=== PATIENT | male | born 1950 | race Caucasian/White ===

== ENCOUNTER 2019-12-18 04:23 | Emergency (ER) | payer MEDICARE, OTHER, SELFPAY ==
[2019-12-18 04:28] VITALS: BP 136/82; PULSE 106; RESP 20; TEMP 36.7; O2SAT 96; BMI 31.1
--- NOTE | 2019-12-18 04:39 | CTR_ITS ---
PROCEDURE INFORMATION: Exam: CT Abdomen And Pelvis With Contrast Exam date and time: 12/18/2019 5:20 AM Age: 69 years old Clinical indication: Abdominal pain; Generalized; Prior surgery; Surgery type: Back, hernia TECHNIQUE: Imaging protocol: Computed tomography of the abdomen and pelvis with intravenous contrast. Radiation optimization: All CT scans at this facility use at least one of these dose optimization techniques: automated exposure control; mA and/or kV adjustment per patient size (includes targeted exams where dose is matched to clinical indication); or iterative reconstruction. Contrast material: VISI; Contrast volume: 95 ml; Contrast route: 18G; COMPARISON: CT abdomen pelvis wo con [id number] 07/22/2019 11:47 AM RADIATION DOSE METRICS: Total DLP: 1771.09 mGy-cm FINDINGS: Lungs: Mild interstitial prominence. 2 mm nodule in the posterior segment of the right lower lobe (series 2: Image 19).For patients at low risk (minimal or absent history of smoking and of other known risk factors), no routine follow-up is indicated. For patients at high risk (history of smoking or of other known risk factors), consider optional CT Chest at 12 months. Enma Zacarias, [employer], 2017. Diaphragm: Asymmetric elevation of the right hemidiaphragm. Liver: Fatty infiltration of the liver. Gallbladder and bile ducts: No cholelithiasis or biliary ductal dilatation. Pancreas: No pancreatic mass or ductal dilatation. Spleen: Mildly enlarged spleen measuring 12.2 cm in length. Adrenals: Unremarkable adrenals. Kidneys and ureters: Mild left hydronephrosis, without associated urolithiasis. Bilateral nodular renal hypodense lesions including a 12 mm high attenuation cyst arising from the lower pole left kidney. Stomach and bowel: Mild gastric wall thickening. Mild small bowel dilatation without a transition zone. Prominent stool and diverticula. Acute sigmoid diverticulitis with wall thickening, infiltration of pericolonic fat, and small quantity of pericolonic fluid. Appendix: No acute appendicitis. Intraperitoneal space: Trace free fluid in the pelvis. Vasculature: Normal caliber of the abdominal aorta. Vascular calcification. Lymph nodes: Subcentimeter lymph nodes. Bladder: Bladder dilatation and wall thickening. Reproductive: 8 mm cyst in the central prostate . Bones/joints: Lumbar laminectomy and pedicle screw fixation. Degenerative change and ligamentous calcification. Schmorl's nodes. Soft tissues: Mild infiltration of subcutaneous fat in the anterior abdominal wall. Small fat containing inguinal hernias. CT/CT abdomen pelvis w con* [id number] IMPRESSION: 1. Acute sigmoid diverticulitis with wall thickening, infiltration of pericolonic fat, and small quantity of pericolonic fluid. 2. Mild left hydronephrosis, without associated urolithiasis. 3. Mild gastric wall thickening. 4. Bladder dilatation and wall thickening. 5. Additional findings as described above. Radiation Dose CTDIVOL = (mGy): DLP = 1771.09 (mGy-cm)
[2019-12-18 04:51] LABS: Basophils % 0.3 %; Eosinophils # 0.2 10^3/uL (0.0-0.8); Eosinophils % 1.7 %; Hematocrit 41.6 % (42.0-52.0); Hemoglobin 13.9 g/dL (11.7-16.6); Lymphocytes # 2.3 10^3/uL (0.8-4.8); Lymphocytes % 24.4 %; Mean Corpuscular HGB Conc 33.4 g/dL (30.0-36.0); Mean Corpuscular Hemoglobin 31.3 pg (28.0-34.0); Mean Corpuscular Volume 93.7 fL (80-94); Mean Platelet Volume 9.5 fL (7.4-10.4); Monocytes # 1.1 10^3/uL (0.2-0.9); Monocytes % 10.9 %; Neutrophils % 62.5 %; Nucleated Red Blood Cells % 0 %; Platelet Count 227 10^3/cmm (130-400); Red Blood Count 4.44 10^6/uL (4.1-5.3); Red Cell Distribution Width 12.8 % (12.1-15.1); White Blood Count 9.6 10^3/uL (4.0-10.0)
[2019-12-18] MEDS: sodium chloride 0.9% 1,000 ML 100 ML IV (04:51)
--- NOTE | 2019-12-18 04:51 | ED_ITS ---
Documented by User: Krupa Hennessy 12/18/19 04:55 HPI - Abdominal Pain General: Chief Complaint: Abdominal Pain Stated Complaint: ABD PAIN/DIVERTICULITIS Time Seen by Provider: 12/18/19 04:34 History of Present Illness: HPI narrative: Mr. Carmona is a nice 69-year-old male who comes in complaining of midline lower abdominal pain. He states his pain began approximately 3 days ago and is progressively gotten worse. He describes the pain is a dull aching pain. It feels similar to when he had diverticulitis in the past. He had associated nausea but no vomiting. He has had loss of appetite. He does not describe any urinary symptoms such as dysuria, urinary frequency urgency. There is been no diarrhea or blood in his stools. He denies any radiation of his pain it is all staying in the midline. Associated Symptoms: Reports nausea; Denies chills, coffee ground emesis, constipation, GI cramping, diarrhea, dysuria, fever(s), hematochezia, hematuria, hematemesis, melena, syncope and vomiting Review of Systems General: Reports: other (negative unless marked) Const: Denies: fever, chills, body aches, fatigue, malaise or diaphoresis Eyes: Denies: change in vision or blurry vision ENMT: Denies: throat pain, painful swallowing, hoarseness, ear pain, ear discharge, Change in hearing or nasal discharge Card: Denies: chest pain, palpitations, irregular heart rhythm, syncope, pre- syncope, shortness of breath on exertion or shortness of breath when lying down Resp: Denies: shortness of breath, productive cough, non-productive cough, wheezing, coughing up blood or chest congestion GI: Reports: abdominal pain and nausea; Denies: vomiting, vomiting blood, coffee grounds in vomit, diarrhea, constipation, cramping, blood in stool or black tarry stool : Denies: flank pain, difficulty urinating, painful urination, urinary frequency, urinary urgency, decreased urine ouput, urinary incontinence or blood in urine Musc: Denies: neck pain, back pain, extremity pain, extremity swelling, joint pain, joint swelling, joint warmth or joint stiffness Skin/Breast: Denies: rash, skin tenderness or yellow skin Neuro: Denies: headache, numbness in extremities, weakness in extremities, changes in sensation, lack of coordination, difficulty walking, dizziness, vertigo or confusion Endo: Denies: excessive thirst, tired all the time, cold intolerance, excessive sweating, flushing or hot flashes Rock/Lymph: Denies: easy bruising, easy bleeding, petechiae or enlarged lymph nodes All/Imm: Denies: hives, throat swelling, tongue swelling, facial swelling or acute wheezing PFSH ED PFSH: Medical History No pertinent past medical history Surgical History No history of previous surgery Social History Smoking and tobacco status: never smoked Physical Exam Const: COMMON NORMALS: no apparent distress, oriented x3, no limitations, healthy appearing and well nourished EXAM LIMITATIONS: no altered mental status GENERAL APPEARANCE: cooperative, well kempt and well developed ORIENTATION/CONSCIOUSNESS: Yes awake HENMT: COMMON NORMALS: normocephalic, head/scalp atraumatic, hearing grossly normal bilaterally, external ears normal, EAC's normal, external nose normal and moist oral mucous membranes HEAD & SCALP: normal to inspection, normocephalic and atraumatic FACE & SINUS: normal facial exam and face symmetric NOSE: external nose normal and nares normal EXTERNAL EAR: Yes external ears normal EXTERNAL AUDITORY CANAL: EAC's normal MOUTH: oral and palatal mucosa normal and tongue normal Eye: COMMON NORMALS: PERRL, EOMs intact bilaterally, conjunctivae normal and no scleral icterus GENERAL EYE: normal appearance of both eyes and normal light reflex CONJUNCTIVA: Yes conjunctivae normal SCLERA: sclerae normal CORNEA: Yes corneas normal PUPIL: Yes PERRL DIRECT OPHTHALMOSCOPY: Yes normal light reflex Neck/C-Spine: COMMON NORMALS: full ROM, no lymphadenopathy, supple, no meningeal signs and no JVD GENERAL: Yes normal visual inspection and Yes trachea midline CERVICAL SPINE: Yes cervical ROM normal Chest: COMMONS NORMALS: inspection of chest normal and palpation of chest normal Resp: COMMON NORMALS: normal respiratory effort, no retractions, no use of accessory muscles and clear to auscultation bilaterally EFFORT & INSPECTION: Yes able to speak in complete sentences AUSCULTATION: clear to auscultation bilaterally Cardio: COMMON NORMALS: no JVD, regular rate, regular rhythm, S1 normal heart sound, S2 normal heart sound, no gallops, no clicks, no murmurs and no rub JUGULAR VENOUS DISTENTION: no JVD RATE: regular rate RHYTHM: regular rhythm HEART SOUNDS: S1 normal and S2 normal GI: COMMON NORMALS: soft to palpation, no hepatosplenomegaly and no masses PALPATION: Yes soft, Yes tender (Moderate in the midline), No guarding, No rigid and Yes no hepatosplenomegaly : COMMON NORMALS: Yes no CVA tenderness BLADDER/KIDNEY EXAM: Yes no CVA tenderness Back/Pelvis: COMMON NORMALS: no CVA tenderness, thoracic and lumbar spine normal to inspection, no thoracic nor lumbar tenderness and thoraco-lumbar ROM normal Extremity: COMMON NORMALS: normal to inspection, full ROM, normal capillary refill, no joint enlargement, no clubbing, cyanosis or edema and no calf tenderness Neuro: COMMON NORMALS: oriented x3, CN's II-XII intact bilaterally, moves all extremities, no focal motor deficits and no sensory deficits noted MENINGEAL SIGNS: Yes no meningeal signs Psych: COMMON NORMALS: mental status grossly normal, thought process normal, cooperative, affect normal, speech normal and activity/motor behavior normal APPEARANCE: Yes well kempt SPEECH: Yes normal speech THOUGHT PROCESS: normal thought process Skin: COMMON NORMALS: no rashes or lesions noted, skin turgor normal, no jaundice, no petechiae and no mottling GENERAL SKIN EXAM: no rashes or lesions noted and turgor normal Course Vital Signs: Vital signs: Vital Signs Temperature 98.0 F 12/18/19 04:28 Pulse Rate 106 H 12/18/19 04:28 Respiratory Rate 18 12/18/19 05:16 Blood Pressure 136/82 12/18/19 04:28 Pulse Oximetry 94 12/18/19 05:16 MDM - Abdominal Pain Lab Data: Labs: Lab Results 12/18/19 12/18/19 12/18/19 Range/Units 04:44 04:44 04:59 WBC 9.6 (4.0-10.0) 10^3/ uL RBC 4.44 (4.1-5.3) 10^6/u L Hgb 13.9 (11.7-16.6) g/dL Hct 41.6 L (42.0-52.0) % MCV 93.7 (80-94) fL MCH 31.3 (28.0-34.0) pg MCHC 33.4 (30.0-36.0) g/dL RDW 12.8 (12.1-15.1) % Plt Count 227 (130-400) 10^3/c mm MPV 9.5 (7.4-10.4) fL Neut % (Auto) 62.5 % Lymph % (Auto) 24.4 % Williamson % (Auto) 10.9 % Eos % (Auto) 1.7 % Baso % (Auto) 0.3 % Neut # (Auto) 6.0 (1.8-7.7) 10^3/u L Lymph # (Auto) 2.3 (0.8-4.8) 10^3/u L Williamson # (Auto) 1.1 H (0.2-0.9) 10^3/u L Eos # (Auto) 0.2 (0.0-0.8) 10^3/u L Baso # (Auto) 0.0 (0.0-0.1) 10^3/u L Nucleated RBC % (a uto) 0 % Nucleated RBCs # 0.0 /100WBC Sodium 141 (136-145) mmol/L Potassium 4.7 (3.5-5.1) mmol/L Chloride 104 (98-107) mmol/L Carbon Dioxide 26 (22-29) mmol/L Anion Gap 15.7 (5-19) BUN 25 H (8-23) mg/dL Creatinine 1.7 H (0.7-1.2) mg/dL GFR Calculation 40.2 L (90-130) mL/min Glucose 127 H (65-115) mg/dL Calculated Osmolal ity 290 (285-295) mOsm/k g Calcium 9.5 (8.5-10.5) mg/dL Total Bilirubin 0.7 (0.15-1.2) mg/dL AST 23 (0-40) U/L ALT 26 (0-41) U/L Alkaline Phosphata se 38 L (40-130) IU/L Total Protein 7.3 (6.6-8.7) g/dL Albumin 4.5 (3.5-5.2) g/dL Globulin 2.8 (1.3-4.6) g/dL Lipase 39 (13-60) U/L Urine Color Yellow (Yellow) Urine Appearance Clear (CLEAR) Urine pH 5 (5-7) Ur Specific Gravit y 1.010 (1.005-1.030) Urine Protein Neg (Negative) Urine Glucose (UA) Norm (Normal) Urine Ketones Negative (Negative) Urine Blood Neg (Negative) Urine Nitrate Negative (Negative) Urine Bilirubin Neg (NEGATIVE) Urine Urobilinogen Norm (Negative) mg/dL Ur Leukocyte Aileen ase Negative (Negative) Urine RBC Rare (0-2) /hpf Urine WBC Rare (0-5) /hpf Ur Squamous Epith Cells Rare (0-5) Urine Bacteria 1+ H (NONE) Discharge Plan Discharge Patient Disposition: Home, Self-Care Clinical Impression: Diverticulitis Condition: Stable Prescriptions: New hydrocodone-acetaminophen 5-325 mg tablet 1 tab PO Q6H PRN (Reason: pain) Qty: 25 RF: 0 Zofran 4 mg tablet 4 mg PO Q6H PRN (Reason: nausea and vomiting) Qty: 15 RF: 0 Cipro 500 mg tablet 500 mg PO BID Qty: 14 RF: 0 metronidazole 500 mg tablet 500 mg PO Q8H 7 Days Qty: 21 RF: 0 Discharge Orders: Discharge Order (Routine); Ordered 12/18/19 Ordered By: Kemal Hernandez Referrals: Jaylan Montero DO [Family Provider] - Discharge Diet: Clear Liquid Discharge Activity: Increase activity as tolerated Patient Instructions: Clear Liquid Diet (ED) Activity Restrictions/Additional Instructions: Clear liquid diet x48 hours and advance as tolerated Sign Out Sign Out Data: Patient Sign Out occurred on 12/18/19 at 06:36. Patient's care was discussed, and care was transferred from Krupa Hennessy to Kemal Hernandez DO. Sign Out Comment: Case turned over to Dr. Hernandez at change of shift. Last updated by Krupa Hennessy at 12/18/19 05:45 Coding Level of Care Code ED Skinner Pelts for Chg Fwd Exam Comprehensive Documented by User: Kemal Hernandez DO 12/18/19 06:45 HPI - Abdominal Pain General: Chief Complaint: Abdominal Pain Stated Complaint: ABD PAIN/DIVERTICULITIS Time Seen by Provider: 12/18/19 04:34 PFSH ED PFSH: Medical History No pertinent past medical history Surgical History No history of previous surgery Social History Smoking and tobacco status: never smoked Course Vital Signs: Vital signs: Vital Signs Temperature 98.0 F 12/18/19 04:28 Pulse Rate 106 H 12/18/19 04:28 Respiratory Rate 18 12/18/19 05:16 Blood Pressure 136/82 12/18/19 04:28 Pulse Oximetry 94 12/18/19 05:16 MDM - Abdominal Pain MDM Narrative: Medical decision making narrative: CT shows diverticulitis no perforation. We will go ahead and start on Cipro and Flagyl hydrocodone Zofran for pain clear liquid diet advance in 2 days recommend follow-up with primary care doctor to reevaluate he is not sure when he had his last colonoscopy and he has had previous episodes of diverticulitis. Lab Data: Labs: Lab Results 12/18/19 12/18/19 12/18/19 Range/Units 04:44 04:44 04:59 WBC 9.6 (4.0-10.0) 10^3/ uL RBC 4.44 (4.1-5.3) 10^6/u L Hgb 13.9 (11.7-16.6) g/dL Hct 41.6 L (42.0-52.0) % MCV 93.7 (80-94) fL MCH 31.3 (28.0-34.0) pg MCHC 33.4 (30.0-36.0) g/dL RDW 12.8 (12.1-15.1) % Plt Count 227 (130-400) 10^3/c mm MPV 9.5 (7.4-10.4) fL Neut % (Auto) 62.5 % Lymph % (Auto) 24.4 % Williamson % (Auto) 10.9 % Eos % (Auto) 1.7 % Baso % (Auto) 0.3 % Neut # (Auto) 6.0 (1.8-7.7) 10^3/u L Lymph # (Auto) 2.3 (0.8-4.8) 10^3/u L Williamson # (Auto) 1.1 H (0.2-0.9) 10^3/u L Eos # (Auto) 0.2 (0.0-0.8) 10^3/u L Baso # (Auto) 0.0 (0.0-0.1) 10^3/u L Nucleated RBC % (a uto) 0 % Nucleated RBCs # 0.0 /100WBC Sodium 141 (136-145) mmol/L Potassium 4.7 (3.5-5.1) mmol/L Chloride 104 (98-107) mmol/L Carbon Dioxide 26 (22-29) mmol/L Anion Gap 15.7 (5-19) BUN 25 H (8-23) mg/dL Creatinine 1.7 H (0.7-1.2) mg/dL GFR Calculation 40.2 L (90-130) mL/min Glucose 127 H (65-115) mg/dL Calculated Osmolal ity 290 (285-295) mOsm/k g Calcium 9.5 (8.5-10.5) mg/dL Total Bilirubin 0.7 (0.15-1.2) mg/dL AST 23 (0-40) U/L ALT 26 (0-41) U/L Alkaline Phosphata se 38 L (40-130) IU/L Total Protein 7.3 (6.6-8.7) g/dL Albumin 4.5 (3.5-5.2) g/dL Globulin 2.8 (1.3-4.6) g/dL Lipase 39 (13-60) U/L Urine Color Yellow (Yellow) Urine Appearance Clear (CLEAR) Urine pH 5 (5-7) Ur Specific Gravit y 1.010 (1.005-1.030) Urine Protein Neg (Negative) Urine Glucose (UA) Norm (Normal) Urine Ketones Negative (Negative) Urine Blood Neg (Negative) Urine Nitrate Negative (Negative) Urine Bilirubin Neg (NEGATIVE) Urine Urobilinogen Norm (Negative) mg/dL Ur Leukocyte Aileen ase Negative (Negative) Urine RBC Rare (0-2) /hpf Urine WBC Rare (0-5) /hpf Ur Squamous Epith Cells Rare (0-5) Urine Bacteria 1+ H (NONE) Discharge Plan Discharge Patient Disposition: Home, Self-Care Clinical Impression: Diverticulitis Condition: Stable Prescriptions: New hydrocodone-acetaminophen 5-325 mg tablet 1 tab PO Q6H PRN (Reason: pain) Qty: 25 RF: 0 Zofran 4 mg tablet 4 mg PO Q6H PRN (Reason: nausea and vomiting) Qty: 15 RF: 0 Cipro 500 mg tablet 500 mg PO BID Qty: 14 RF: 0 metronidazole 500 mg tablet 500 mg PO Q8H 7 Days Qty: 21 RF: 0 Discharge Orders: Discharge Order (Routine); Ordered 12/18/19 Ordered By: Kemal Hernandez Referrals: Jaylan Montero DO [Family Provider] - Discharge Diet: Clear Liquid Discharge Activity: Increase activity as tolerated Patient Instructions: Clear Liquid Diet (ED) Activity Restrictions/Additional Instructions: Clear liquid diet x48 hours and advance as tolerated Sign Out Sign Out Data: Patient Sign Out occurred on 12/18/19 at 06:36. Patient's care was discussed, an d care was transferred from Krupa Hennessy to Kemal Hernandez DO. Sign Out Comment: Case turned over to Dr. Hernandez at change of shift. Last updated by Krupa Hennessy at 12/18/19 05:45 Coding Level of Care Code ED Skinner Pelts for Chg Fwd Exam Comprehensive
[2019-12-18] MEDS: ondansetron 2 mg/ML SDV 2 mL 4 MG IVP ×2 (04:53→06:46)
[2019-12-18 04:54] VITALS: RESP 17; O2SAT 98
[2019-12-18] MEDS: morphine 4 mg/mL SDV 1 mL IVP ×2 (04:54→06:47)
[2019-12-18 05:05] LABS: Alanine Aminotransferase 26 U/L (0-41); Albumin Level 4.5 g/dL (3.5-5.2); Alkaline Phosphatase 38 IU/L (40-130); Anion Gap 15.7 (5-19); Aspartate Amino Transferase 23 U/L (0-40); Blood Urea Nitrogen 25 mg/dL (8-23); Calcium 9.5 mg/dL (8.5-10.5); Carbon Dioxide 26 mmol/L (22-29); Chloride 104 mmol/L (98-107); Globulin 2.8 g/dL (1.3-4.6); Glomerular Filtration Rate 40.2 mL/min (90-130); Glucose 127 mg/dL (65-115); Lipase 39 U/L (13-60); Osmolality Calculated 290 mOsm/kg (285-295); Potassium 4.7 mmol/L (3.5-5.1); Sodium 141 mmol/L (136-145); Total Bilirubin 0.7 mg/dL (0.15-1.2); Total Protein 7.3 g/dL (6.6-8.7)
[2019-12-18 05:16] VITALS: RESP 18; O2SAT 94
[2019-12-18] MEDS: HYDROmorphone 1 mg/mL INJ 1 mL IVP (05:16)
[2019-12-18 05:48] LABS: Bilirubin Urine Neg (NEGATIVE); Blood Urine Neg (Negative); Glucose Urine UA Norm (Normal); Ketones Urine Negative (Negative); Leukocyte Esterase Urine Negative (Negative); Nitrate Urine Negative (Negative); Protein Urine Neg (Negative); RBC Urine RARE /hpf (0-2); Squamous Epithelial Cell Urine RARE (0-5); Urine Appearance Clear (CLEAR); Urine Color Yellow (Yellow); Urobilinogen Urine Norm (Negative); WBC Urine RARE /hpf (0-5); pH Urine 5 (5-7)
[2019-12-18 05:49] LABS: Bacteria Urine 1+
[2019-12-18] MEDS: iodixanol 320 mg/mL 100mL Btl IV (05:58)
[2019-12-18] MEDS: sodium chloride 0.9% 1,000 ML 999 ML IV ×2 (06:10→06:51)
--- NOTE | 2019-12-18 06:17 | PC.NURSE ---
[facility] INFUSED THIRD UNIT INFUSING AT THIS, STATES PAIN IS STILL THERE' WHILE GUARDING ABD. WILL NOTIFY ER DOCTOR.
[2019-12-18 06:47] VITALS: RESP 18; O2SAT 98
[2019-12-18 07:22] VITALS: BP 144/76; PULSE 90; RESP 18; O2SAT 94
== END 2019-12-18 07:28 | disposition home or self-care (01) ==
PROVIDERS: Emergency Medicine; Emergency Provider Family Medicine; Family Provider Family Medicine
DX: K57.92 Diverticulitis of intestine, part unspecified, without perforation or abscess without bleeding (principal)
CPT/HCPCS: 12345; 74177; 80053; 81001; 83690; 85025; 96360; 96361; 96374; 96375; 96376; 99283; 99284; J1170; J2270; J2405; J7030; Q9967

== ENCOUNTER 2020-06-06 04:27 | Emergency (ER) | payer MEDICARE, OTHER, SELFPAY ==
[2020-06-06 04:33] VITALS: BP 152/81; PULSE 88; RESP 18; TEMP 36.4; O2SAT 95; BMI 30.5
--- NOTE | 2020-06-06 04:36 | CTR_ITS ---
PROCEDURE INFORMATION: Exam: CT Abdomen And Pelvis With Contrast Exam date and time: 06/06/2020 5:41 AM Age: 70 years old Clinical indication: Abdominal pain; Localized; Lower; Prior surgery; Surgery date: 6+ months; Surgery type: Back; Additional info: Abd pain TECHNIQUE: Imaging protocol: Computed tomography of the abdomen and pelvis with intravenous contrast. Radiation optimization: All CT scans at this facility use at least one of these dose optimization techniques: automated exposure control; mA and/or kV adjustment per patient size (includes targeted exams where dose is matched to clinical indication); or iterative reconstruction. Contrast material: VISI; Contrast volume: 95 ml; Contrast route: INTRAVENOUS (IV); COMPARISON: CT abdomen pelvis w con* [id number] 12/18/2019 5:54 AM RADIATION DOSE METRICS: Total DLP (mGy-cm): 1471.51 FINDINGS: Liver: Normal. No mass. Gallbladder and bile ducts: Normal. No calcified stones. No ductal dilation. Pancreas: Normal. No ductal dilation. Spleen: Normal. No splenomegaly. Adrenals: Normal. No mass. Kidneys and ureters: Strandy opacities are seen in the perinephric fascia likely representing chronic scarring. There are stable bilateral renal cysts present compared with 12/18/2019. The largest is seen within the right kidney measuring 1.5 cm. Stomach and bowel: Diverticula are present on the sigmoid colon. There are hazy opacity seen adjacent to the proximal sigmoid colon and there is bowel wall thickening present within the proximal sigmoid colon as well, findings compatible with diverticulitis. Appendix: The appendix is visualized and is normal in configuration. Intraperitoneal space: Unremarkable. No free air. No significant fluid collection. Vasculature: Unremarkable. No abdominal aortic aneurysm. Lymph nodes: Unremarkable. No enlarged lymph nodes. Urinary bladder: There is bladder wall thickening seen although the bladder is incompletely distended. Reproductive: Unremarkable as visualized. Bones/joints: Unremarkable. No acute fracture. Soft tissues: Unremarkable. CT/CT abdomen pelvis w con* [id number] IMPRESSION: 1. Diverticulosis of the sigmoid colon. Inflammatory changes and bowel wall thickening is seen within the proximal sigmoid colon compatible with diverticulitis. 2. Normal appendix 3. Stable benign renal cysts present bilaterally compared with 12/18/2019. No further workup needed. Radiation Dose CTDIVOL = (mGy): DLP = 1471.51 (mGy-cm)
[2020-06-06] MEDS: sodium chloride 0.9% 1,000 ML 999 ML IV (04:45)
[2020-06-06 05:06] LABS: Basophils % 0.5 %; Eosinophils # 0.1 10^3/uL (0.0-0.8); Eosinophils % 1.6 %; Hematocrit 37.7 % (42.0-52.0); Hemoglobin 12.5 g/dL (11.7-16.6); Lymphocytes # 1.8 10^3/uL (0.8-4.8); Lymphocytes % 24.5 %; Mean Corpuscular HGB Conc 33.2 g/dL (30.0-36.0); Mean Corpuscular Hemoglobin 31.4 pg (28.0-34.0); Mean Corpuscular Volume 94.7 fL (80-94); Mean Platelet Volume 9.4 fL (7.4-10.4); Monocytes # 0.8 10^3/uL (0.2-0.9); Monocytes % 10.7 %; Neutrophils # 4.61 10^3/uL (1.8-7.7); Neutrophils % 62.4 %; Nucleated Red Blood Cells % 0 %; Platelet Count 183 10^3/cmm (130-400); Red Blood Count 3.98 10^6/uL (4.1-5.3); Red Cell Distribution Width 13.2 % (12.1-15.1); White Blood Count 7.4 10^3/uL (4.0-10.0)
[2020-06-06 05:34] LABS: Alanine Aminotransferase 29 U/L (0-41); Albumin Level 4.1 g/dL (3.5-5.2); Alkaline Phosphatase 36 IU/L (40-130); Aspartate Amino Transferase 29 U/L (0-40); Blood Urea Nitrogen 27 mg/dL (8-23); Calcium 8.9 mg/dL (8.5-10.5); Carbon Dioxide 25 mmol/L (22-29); Chloride 104 mmol/L (98-107); Globulin 2.2 g/dL (1.3-4.6); Glomerular Filtration Rate 54.6 mL/min (90-130); Glucose 105 mg/dL (65-115); Lipase 38 U/L (13-60); Osmolality Calculated 293 mOsm/kg (285-295); Sodium 139 mmol/L (136-145); Total Bilirubin 0.6 mg/dL (0.15-1.2); Total Protein 6.3 g/dL (6.6-8.7)
[2020-06-06 05:44] VITALS: RESP 16
[2020-06-06 05:44] LABS: Lactate (Lactic Acid level) 0.7 mmol/L (0.5-2.2)
[2020-06-06] MEDS: HYDROmorphone 1 mg/mL INJ 1 mL IVP (05:44)
[2020-06-06] MEDS: ondansetron 2 mg/ML SDV 2 mL 4 MG IVP (05:45)
[2020-06-06] MEDS: iodixanol 320 mg/mL 100mL Btl IV (05:50)
[2020-06-06 06:25] LABS: Add Urine Microscopic? NO
--- NOTE | 2020-06-06 06:25 | W.ED.ABDPA2 ---
HPI - Abdominal Pain General: Chief Complaint: Abdominal Pain Stated Complaint: abd pain Time Seen by Provider: 06/06/20 04:35 History of Present Illness: HPI narrative: 70-year-old gentleman presents with periumbilical belly pain for the past couple of days. No vomiting, no diarrhea, no fever. Simply pain. It is gotten progressively worse. MD elicited complaint: abdominal pain Pertinent past history: diverticulitis Onset (ago): day(s) Pain Consistency: constant Location: Periumbilical Severity: moderate Quality: cramping, stabbing and aching Radiation: none Migration to: no migration Exacerbating factors: movement Relieving factors: nothing Associated Symptoms: Reports nausea; Denies dysuria, fever(s), hematochezia and vomiting Review of Systems Const: Denies: fever(s) Eyes: Denies: change in vision ENMT: Denies: odynophagia, swelling of lips/tongue or sinus pain Card: Denies: chest pain, palpitations, irregular heart rhythm or edema Resp: Denies: dyspnea, productive cough, non-productive cough or wheezing GI: Reports: nausea; Denies: vomiting or hematochezia : Denies: dysuria Musc: Denies: back pain or joint redness Skin/Breast: Denies: rash or erythema Neuro: Denies: headache(s), dizziness or vertigo Psych: Denies: anxiety PFSH ED PFSH: Medical History (Updated 06/06/20 @ 06:32 by Carlos Reyes DO) No pertinent past medical history Surgical History No history of previous surgery Social History Smoking and tobacco status: never smoked Physical Exam Const: GENERAL APPEARANCE: well developed ORIENTATION/CONSCIOUSNESS: Yes oriented to person, Yes oriented to place and Yes oriented to time HENMT: COMMON NORMALS: normocephalic, external ears normal and Normal external nose present HEAD & SCALP: normocephalic FACE & SINUS: normal facial exam NOSE: Normal external nose present and No nasal discharge present EXTERNAL EAR: Yes external ears normal MOUTH: tongue normal Eye: COMMON NORMALS: EOMs intact bilaterally and conjunctivae normal EYELID: eyelids normal CONJUNCTIVA: Yes conjunctivae normal Neck/C-Spine: COMMON NORMALS: full ROM GENERAL: No tracheal deviation Chest: COMMONS NORMALS: normal inspection of the chest CHEST: No tenderness Resp: COMMON NORMALS: clear to auscultation bilaterally EFFORT & INSPECTION: No tachypneic, No respiratory distress, No retractions, No uses accessory muscles and No tracheal deviation AUSCULTATION: clear to auscultation bilaterally, no rhonchi, no wheezes and lung sounds not diminished Cardio: COMMON NORMALS: regular rate and regular rhythm RATE: regular rate RHYTHM: regular rhythm HEART SOUNDS: no murmurs PERIPHERAL PULSES: radial pulses present GI: INSPECTION: No abdominal distension AUSCULTATION: No Hyperactive bowel sounds present and No Hypoactive bowel sounds present PALPATION: Yes Tenderness to palpation present (GI) (periumbilical), Yes Guarding due to palpation present (GI) and No Rigid due to palpation PERCUSSION: no dullness to percussion and no tympanic to percussion Neuro: SENSORIUM/ORIENTATION: Yes oriented to person, Yes oriented to place and Yes oriented to time Psych: COMMON NORMALS: mental status grossly normal Skin: COMMON NORMALS: no rashes or lesions noted GENERAL SKIN EXAM: no rashes or lesions noted Course Vital Signs: Vital signs: Vital Signs Temperature 97.5 F L 06/06/20 04:33 Pulse Rate 78 06/06/20 07:09 Respiratory Rate 15 06/06/20 07:09 Blood Pressure 139/80 06/06/20 07:09 Pulse Oximetry 95 06/06/20 04:33 MDM - Abdominal Pain MDM Narrative: Medical decision making narrative: No fever no white count mild elevation in creatinine. CT shows diverticulitis without perforation or abscess the patient's not vomiting. He would like to try treatment at home. Ciprofloxacin, Flagyl, antiemetics and pain medication. He was told to return for any worsening symptoms or failure to improve. Lab Data: Labs: Lab Results 06/06/20 06/06/20 06/06/20 Range/Units 04:45 04:45 05:05 WBC 7.4 (4.0-10.0) 10^3/ uL RBC 3.98 L (4.1-5.3) 10^6/u L Hgb 12.5 (11.7-16.6) g/dL Hct 37.7 L (42.0-52.0) % MCV 94.7 H (80-94) fL MCH 31.4 (28.0-34.0) pg MCHC 33.2 (30.0-36.0) g/dL RDW 13.2 (12.1-15.1) % Plt Count 183 (130-400) 10^3/c mm MPV 9.4 (7.4-10.4) fL Neut % (Auto) 62.4 % Lymph % (Auto) 24.5 % Nolan % (Auto) 10.7 % Eos % (Auto) 1.6 % Baso % (Auto) 0.5 % Neut # (Auto) 4.61 (1.8-7.7) 10^3/u L Lymph # (Auto) 1.8 (0.8-4.8) 10^3/u L [place] # (Auto) 0.8 (0.2-0.9) 10^3/u L Eos # (Auto) 0.1 (0.0-0.8) 10^3/u L Baso # (Auto) 0.0 (0.0-0.1) 10^3/u L Nucleated RBC % (a uto) 0 % Nucleated RBCs # 0.0 /100WBC Sodium 139 (136-145) mmol/L Potassium 4.0 (3.5-5.1) mmol/L Chloride 104 (98-107) mmol/L Carbon Dioxide 25 (22-29) mmol/L Anion Gap 14.0 (5-19) BUN 27 H (8-23) mg/dL Creatinine 1.3 H (0.7-1.2) mg/dL GFR Calculation 54.6 L (90-130) mL/min Glucose 105 (65-115) mg/dL Calculated Osmolal ity 293 (285-295) mOsm/k g Lactate 0.7 (0.5-2.2) mmol/L Calcium 8.9 (8.5-10.5) mg/dL Total Bilirubin 0.6 (0.15-1.2) mg/dL AST 29 (0-40) U/L ALT 29 (0-41) U/L Alkaline Phosphata se 36 L (40-130) IU/L C-Reactive Protein 10.5 H (0.0-4.9) mg/L Total Protein 6.3 L (6.6-8.7) g/dL Albumin 4.1 (3.5-5.2) g/dL Globulin 2.2 (1.3-4.6) g/dL Lipase 38 (13-60) U/L Urine Color (Yellow) Urine Appearance (CLEAR) Urine pH (5-7) Ur Specific Gravit y (1.005-1.030) Urine Protein (Negative) Urine Glucose (UA) (Normal) Urine Ketones (Negative) Urine Blood (Negative) Urine Nitrate (Negative) Urine Bilirubin (Negative) Prot Sulfosalicyli c Acd (Negative) Urine Urobilinogen (Negative) mg/dL Ur Leukocyte Aileen ase (Negative) 06/06/20 Range/Units 05:40 WBC (4.0-10.0) 10^3/ uL RBC (4.1-5.3) 10^6/u L Hgb (11.7-16.6) g/dL Hct (42.0-52.0) % MCV (80-94) fL MCH (28.0-34.0) pg MCHC (30.0-36.0) g/dL RDW (12.1-15.1) % Plt Count (130-400) 10^3/c mm MPV (7.4-10.4) fL Neut % (Auto) % Lymph % (Auto) % [place] % (Auto) % Eos % (Auto) % Baso % (Auto) % Neut # (Auto) (1.8-7.7) 10^3/u L Lymph # (Auto) (0.8-4.8) 10^3/u L [place] # (Auto) (0.2-0.9) 10^3/u L Eos # (Auto) (0.0-0.8) 10^3/u L Baso # (Auto) (0.0-0.1) 10^3/u L Nucleated RBC % (a uto) % Nucleated RBCs # /100WBC Sodium (136-145) mmol/L Potassium (3.5-5.1) mmol/L Chloride (98-107) mmol/L Carbon Dioxide (22-29) mmol/L Anion Gap (5-19) BUN (8-23) mg/dL Creatinine (0.7-1.2) mg/dL GFR Calculation (90-130) mL/min Glucose (65-115) mg/dL Calculated Osmolal ity (285-295) mOsm/k g Lactate (0.5-2.2) mmol/L Calcium (8.5-10.5) mg/dL Total Bilirubin (0.15-1.2) mg/dL AST (0-40) U/L ALT (0-41) U/L Alkaline Phosphata se (40-130) IU/L C-Reactive Protein (0.0-4.9) mg/L Total Protein (6.6-8.7) g/dL Albumin (3.5-5.2) g/dL Globulin (1.3-4.6) g/dL Lipase (13-60) U/L Urine Color Yellow (Yellow) Urine Appearance Clear (CLEAR) Urine pH 8 H (5-7) Ur Specific Gravit y 1.010 (1.005-1.030) Urine Protein Neg (Negative) Urine Glucose (UA) Norm (Normal) Urine Ketones Negative (Negative) Urine Blood Neg (Negative) Urine Nitrate Negative (Negative) Urine Bilirubin Neg (Negative) Prot Sulfosalicyli c Acd Negative (Negative) Urine Urobilinogen Norm (Negative) mg/dL Ur Leukocyte Aileen ase Negative (Negative) Discharge Plan Discharge Patient Disposition: Home Clinical Impression: Diverticulitis Condition: Stable Prescriptions: New Cipro 500 mg tablet 500 mg PO Q12H Qty: 20 RF: 0 Flagyl 500 mg tablet 500 mg PO TID Qty: 30 RF: 0 Percocet 5-325 mg tablet 1 tab PO Q4H PRN (Reason: pain) Qty: 14 RF: 0 Zofran 4 mg tablet 4 mg PO Q6H PRN (Reason: nausea and vomiting) Qty: 10 RF: 0 No Action hydrocodone-acetaminophen 5-325 mg tablet 1 tab PO Q6H PRN (Reason: pain) Qty: 25 RF: 0 Zofran 4 mg tablet 4 mg PO Q6H PRN (Reason: nausea and vomiting) Qty: 15 RF: 0 Cipro 500 mg tablet 500 mg PO BID Qty: 14 RF: 0 Discharge Orders: Discharge Order (Routine); Ordered 06/06/20 Ordered By: Carlos Reyes Referrals: Jaylan Montero DO [Primary Care Provider] - 4-7 days Discharge Diet: Advance as tolerated and Clear Liquid Discharge Activity: Resume usual activity Patient Instructions: Diverticulitis (ED) Activity Restrictions/Additional Instructions: Return for fever greater than 100 despite 2-3 doses of antibiotics, vomiting liquids or medications, increasing pain despite treatment, blood in the stool, other concerning symptoms Discharge Date/Time: 06/06/20 07:12 Coding Level of Care Code ED Hand Mexican Food Maker for Elo Harris
[2020-06-06 06:56] LABS: Urine Appearance Clear (CLEAR); Urine Color Yellow (Yellow)
[2020-06-06 06:57] LABS: Bilirubin Urine Neg (Negative); Blood Urine Neg (Negative); Glucose Urine UA Norm (Normal); Ketones Urine Negative (Negative); Leukocyte Esterase Urine Negative (Negative); Nitrate Urine Negative (Negative); Protein Urine Neg (Negative); Sulfosalicylic Acid Urine Negative (Negative); Urobilinogen Urine Norm (Negative); pH Urine 8 (5-7)
[2020-06-06] MEDS: metroNIDAZOLE 500 MG Tablet PO (07:04)
[2020-06-06] MEDS: oxyCODONE-APAP 5-325 mg Tablet 1 TAB PO (07:04)
[2020-06-06] MEDS: ciprofloxacin 500 mg Tablet PO (07:05)
[2020-06-06 07:09] VITALS: BP 139/80; PULSE 78; RESP 15
[2020-06-06 08:51] LABS: C Reactive Protein 10.5 mg/L (0.0-4.9)
== END 2020-06-06 07:12 | disposition home or self-care (01) ==
PROVIDERS: Emergency Provider Emergency Medicine; PCP Family Medicine
DX: K57.92 Diverticulitis of intestine, part unspecified, without perforation or abscess without bleeding (principal)
CPT/HCPCS: 12345; 74177; 80053; 81003; 83605; 83690; 85025; 86140; 96361; 96374; 96375; 99282; 99283; J1170; J2405; J7030; Q9967

== ENCOUNTER 2020-11-25 18:19 | Emergency (ER) | payer MEDICARE, OTHER, SELFPAY ==
[2020-11-25 18:21] VITALS: BP 165/71; PULSE 107; RESP 18; TEMP 36.9; O2SAT 95; BMI 31.1
--- NOTE | 2020-11-25 19:36 | CTR_ITS ---
PROCEDURE INFORMATION: Exam: CT Abdomen And Pelvis With Contrast Exam date and time: 11/25/2020 8:21 PM Age: 70 years old Clinical indication: Abdominal pain; Localized; Prior surgery; Surgery type: Back; Patient HX: Central/lower abd pain x 2 days; Additional info: Abd pain, diveriticulitis TECHNIQUE: Imaging protocol: Computed tomography of the abdomen and pelvis with contrast. Radiation optimization: All CT scans at this facility use at least one of these dose optimization techniques: automated exposure control; mA and/or kV adjustment per patient size (includes targeted exams where dose is matched to clinical indication); or iterative reconstruction. Contrast material: VISI 320; Contrast volume: 95 ml; Contrast route: INTRAVENOUS (IV); COMPARISON: CT abdomen pelvis w con* [id number] 06/06/2020 5:44 AM RADIATION DOSE METRICS: Total DLP (mGy-cm): 8.8 FINDINGS: Liver: Normal. No mass. Gallbladder and bile ducts: Normal. No calcified stones. No ductal dilation. Pancreas: Normal. No ductal dilation. Spleen: Normal. No splenomegaly. Adrenal glands: Normal. No mass. Kidneys and ureters: 1.3 cm low-density cortical lesion in the left kidney has Hounsfield units measuring 20. This is most likely a cyst. Additional low-density lesions in both kidneys are too small to characterize but are most likely cysts. No follow-up imaging is recommended. No calculus or hydronephrosis. Stomach and bowel: Diverticulosis of the distal descending and sigmoid colon. There is focal inflammation in the fat surrounding the proximal sigmoid colon with wall thickening. No evidence for perforation. The stomach and small bowel are unremarkable. Appendix: The appendix is visualized and is normal. Intraperitoneal space: Unremarkable. No free air. No significant fluid collection. Vasculature: Unremarkable. No abdominal aortic aneurysm. Lymph nodes: Unremarkable. No enlarged lymph nodes. Urinary bladder: Mild thickening of the superior urinary bladder wall which abuts the inflamed sigmoid colon. Reproductive: Mildly enlarged prostate gland. There is a polypoid projection into the inferior urinary bladder which appears contiguous with the prostate. Bones/joints: L3-S1 posterior mechanical fusion with decompressive laminectomies. No compression fracture. Soft tissues: Fat containing right inguinal hernia. Other findings: No abscess. CT/CT abdomen pelvis w con* [id number] IMPRESSION: 1. Acute sigmoid diverticulitis. 2. Mild wall thickening/inflammation within the adjacent urinary bladder. 3. Enlarged prostate gland with a polypoid filling defect in the inferior urinary bladder. Prostate or urinary bladder malignancy is not excluded. Follow-up with cystoscopy is recommended. COMMENTS: Consistent with the [place] [employer]'s Incidental Findings Committee white paper (J Am Liz Radiol 2018): Any incidental renal lesion less than 1 cm or classified as too small to characterize, or any incidental cystic renal lesion characterized as simple-appearing, is likely benign. No follow-up imaging is recommended for these lesions per consensus recommendations based on imaging criteria. Radiation Dose CTDIVOL = (mGy): DLP = 2078.8 (mGy-cm)
--- NOTE | 2020-11-25 19:37 | W.ED.ABDPA2 ---
HPI - Abdominal Pain General: Chief Complaint: Abdominal Pain Stated Complaint: Pain in lower ABD Time Seen by Provider: 11/25/20 19:36 Source: patient Mode of arrival: ambulatory Limitations: no limitations History of Present Illness: HPI narrative: Patient comes in today with complaints of lower abdominal pain starting early this morning. Patient points to his periumbilical area radiating to the right side of his lower abdomen. Patient reports the pain kind reminds him of when he had diverticulitis in the past. Patient does continue to have his appendix. Patient is alert oriented. Patient appears mildly unwell. Patient appears in moderate pain. MD elicited complaint: abdominal pain Pertinent past history: diverticulitis Onset (ago): hour(s) Pain Consistency: constant Location: Periumbilical and RLQ Severity: moderate Quality: cramping Radiation: RLQ Migration to: no migration Exacerbating factors: movement Relieving factors: nothing Associated Symptoms: Reports nausea; Denies hematochezia and hematemesis Review of Systems General: Reports: 10 or more systems reviewed and unremarkable except in HPI and below GI: Reports: abdominal pain and nausea; Denies: hematemesis or hematochezia [facility] ED PFSH: Medical History (Updated 11/25/20 @ 21:34 by KENJI Curry) No pertinent past medical history Surgical History No history of previous surgery Social History Smoking and tobacco status: never smoked Physical Exam Const: COMMON NORMALS: no acute distress and patient oriented x3 GENERAL APPEARANCE: cooperative HENMT: COMMON NORMALS: normocephalic and Normal external nose present HEAD & SCALP: normal to inspection and normocephalic NOSE: Normal external nose present MOUTH: Normal oral and palatal mucosa present THROAT: posterior oropharynx normal Eye: GENERAL EYE: appearance normal, both eyes and all related structures Neck/C-Spine: COMMON NORMALS: full ROM Chest: COMMONS NORMALS: normal inspection of the chest Resp: COMMON NORMALS: normal respiratory effort EFFORT & INSPECTION: Yes able to speak in complete sentences Cardio: COMMON NORMALS: regular rate and regular rhythm RATE: regular rate RHYTHM: regular rhythm GI: INSPECTION: Yes normal to inspection AUSCULTATION: Yes Hypoactive bowel sounds present PALPATION: Yes Tenderness to palpation present (GI) Details: RLQ and other (Periumbilical) : COMMON NORMALS: Yes no CVA tenderness BLADDER/KIDNEY EXAM: Yes no CVA tenderness Back/Pelvis: COMMON NORMALS: no CVA tenderness and thoracic and lumbar spine normal to inspection Extremity: COMMON NORMALS: normal to inspection Neuro: COMMON NORMALS: patient oriented x3 and moves all extremities Psych: COMMON NORMALS: mental status grossly normal and cooperative Skin: COMMON NORMALS: no rashes or lesions noted GENERAL SKIN EXAM: no rashes or lesions noted Course Vital Signs: Vital signs: Vital Signs Temperature 98.4 F 11/25/20 18:21 Pulse Rate 107 H 11/25/20 18:21 Respiratory Rate 18 11/25/20 18:21 Blood Pressure 165/71 11/25/20 18:21 Pulse Oximetry 95 11/25/20 18:21 MDM - Abdominal Pain MDM Narrative: Medical decision making narrative: Patient comes in for concerns of lower abdominal pain. Patient thinks that he has a flare of his diverticulitis. Exam noted some significant tenderness in the periumbilical right lower quadrant area. Bowel sounds were present. Skin is warm and dry. Vital signs were normal. Differential diagnosis includes but not limited to diverticulitis, appendicitis, bowel obstruction. Laboratory values noted no significant abnormality. CT scan did indicate sigmoid diverticulitis and abnormality noted in the bladder/prostate area. Reviewed exam with patient with recommendations for treatment of diverticulitis with antibiotic and medications for pain. Also recommended cystoscopy through urologist for further treatment and evaluation of abnormality on CT scan. Patient reported understanding and agreed to plan. Lab Data: Labs: Lab Results 11/25/20 11/25/20 Range/Units 19:48 19:48 WBC 9.8 (4.0-10.0) 10^3/ uL RBC 4.25 (4.1-5.3) 10^6/u L Hgb 13.5 (11.7-16.6) g/dL Hct 40.3 L (42.0-52.0) % MCV 94.8 H (80-94) fL MCH 31.8 (28.0-34.0) pg MCHC 33.5 (30.0-36.0) g/dL RDW 13.2 (12.1-15.1) % Plt Count 204 (130-400) 10^3/c mm MPV 9.2 (7.4-10.4) fL Neut % (Auto) 72.6 % Lymph % (Auto) 16.6 % [place] % (Auto) 8.9 % Eos % (Auto) 1.3 % Baso % (Auto) 0.4 % Neut # (Auto) 7.08 (1.8-7.7) 10^3/u L Lymph # (Auto) 1.6 (0.8-4.8) 10^3/u L [place] # (Auto) 0.9 (0.2-0.9) 10^3/u L Eos # (Auto) 0.1 (0.0-0.8) 10^3/u L Baso # (Auto) 0.0 (0.0-0.1) 10^3/u L Nucleated RBC % (a uto) 0 % Nucleated RBCs # 0.0 /100WBC Sodium 138 (136-145) mmol/L Potassium 4.5 (3.5-5.1) mmol/L Chloride 102 (98-107) mmol/L Carbon Dioxide 28 (22-29) mmol/L Anion Gap 12.5 (5-19) BUN 26 H (8-23) mg/dL Creatinine 1.2 (0.7-1.2) mg/dL GFR Calculation 59.9 L (90-130) mL/min Glucose 192 H (65-115) mg/dL Calculated Osmolal ity 296 H (285-295) mOsm/k g Calcium 9.9 (8.5-10.5) mg/dL Total Bilirubin 0.5 (0.15-1.2) mg/dL AST 29 (0-40) U/L ALT 28 (0-41) U/L Alkaline Phosphata se 43 (40-130) IU/L Total Protein 6.6 (6.6-8.7) g/dL Albumin 4.3 (3.5-5.2) g/dL Globulin 2.3 (1.3-4.6) g/dL Lipase 38 (13-60) U/L EKG Data ^: EKG 1: Attestation: I personally reviewed and interpreted this EKG as follows: (2022, EKG shows a regular rhythm with 96 bpm, no ST elevation, no ectopy is noted. There is artifact present on the exam. Patient does have a left axis deviation noted. Prior exam is not available for me to compare.) Discharge Plan Discharge Patient Disposition: Home Clinical Impression: Diverticulitis of sigmoid colon, Abnormal CT scan, bladder Condition: Stable Prescriptions: Continued hydrocodone-acetaminophen 5-325 mg tablet 1 tab PO Q6H PRN (Reason: pain) Qty: 12 RF: 0 Zofran 4 mg tablet 4 mg PO Q6H PRN (Reason: nausea and vomiting) Qty: 10 RF: 0 Flagyl 500 mg tablet 500 mg PO TID Qty: 21 RF: 0 Cipro 500 mg tablet 500 mg PO Q12H Qty: 14 RF: 0 Discontinued ondansetron HCl [Zofran] 4 mg tablet 4 mg PO Q6H PRN (Reason: nausea and vomiting) Qty: 15 RF: 0 ciprofloxacin HCl [Cipro] 500 mg tablet 500 mg PO BID Qty: 14 RF: 0 oxycodone-acetaminophen [Percocet] 5-325 mg tablet 1 tab PO Q4H PRN (Reason: pain) Qty: 14 RF: 0 Discharge Orders: Discharge ED (Routine); Ordered 11/25/20 Ordered By: Bhavik Mobley Referrals: Jaylan Montero DO [Primary Care Provider] - Discharge Diet: Advance as tolerated Discharge Activity: Resume usual activity Patient Instructions: Diverticulitis (ED), Opioid Safety Activity Restrictions/Additional Instructions: Soft bland diet until pain improves in the gut. Drink plenty of fluids. Use medications as directed for pain and nausea. Take antibiotic as ordered. Follow-up with primary care. Follow-up with urologist for further evaluation of abnormal imaging of the bladder on the CT scan. Return to emergency department for new concerns. Coding Level of Care Code ED Respite Coordinator for Chg Fwd Exam Comprehensive
--- NOTE | 2020-11-25 19:43 | ECG_ITS ---
[facility] Test Date: 2020-11-25 Pat Name: Naresh Carmona Department: Room: Gender: Male Digital Publishing Specialist: : 1950 Requested By: Bhavik Merritt Order Number: [id number] Fischer MD: Chhaya Najera M.D. Measurements Intervals [place] Rate: 96 P: 40 NV: 160 QRS: -41 QRSD: 89 T: 76 QT: 343 QTc: 433 Interpretive Statements SINUS RHYTHM LEFT AXIS DEVIATION [QRS AXIS < -30] PATTERN CONSISTENT WITH PULMONARY DISEASE NONSPECIFIC T-WAVE ABNORMALITY Compared to ECG 07/22/2019 09:43:33 Left-axis deviation now present Sinus tachycardia no longer present Left anterior fascicular block no longer present T-wave abnormality still present Electronically Signed On 11-25-2020 20:59:52 CDT by Chhaya Najera M.D. [email or web address] [email or web address] centerReveal Technologylake county memorial [email or web address].Moqom/store/[id number]
[2020-11-25] MEDS: ondansetron 2 mg/ML SDV 2 mL 4 MG IVP (19:50)
[2020-11-25] MEDS: morphine 4 mg/mL SDV 1 mL IVP (19:51)
[2020-11-25] MEDS: sodium chloride 0.9% 500 ML 999 ML IV (19:55)
[2020-11-25 19:57] LABS: Basophils % 0.4 %; Eosinophils # 0.1 10^3/uL (0.0-0.8); Eosinophils % 1.3 %; Hematocrit 40.3 % (42.0-52.0); Hemoglobin 13.5 g/dL (11.7-16.6); Lymphocytes # 1.6 10^3/uL (0.8-4.8); Lymphocytes % 16.6 %; Mean Corpuscular HGB Conc 33.5 g/dL (30.0-36.0); Mean Corpuscular Hemoglobin 31.8 pg (28.0-34.0); Mean Corpuscular Volume 94.8 fL (80-94); Mean Platelet Volume 9.2 fL (7.4-10.4); Monocytes # 0.9 10^3/uL (0.2-0.9); Monocytes % 8.9 %; Neutrophils # 7.08 10^3/uL (1.8-7.7); Neutrophils % 72.6 %; Nucleated Red Blood Cells % 0 %; Platelet Count 204 10^3/cmm (130-400); Red Blood Count 4.25 10^6/uL (4.1-5.3); Red Cell Distribution Width 13.2 % (12.1-15.1); White Blood Count 9.8 10^3/uL (4.0-10.0)
[2020-11-25 20:18] LABS: Alanine Aminotransferase 28 U/L (0-41); Albumin Level 4.3 g/dL (3.5-5.2); Alkaline Phosphatase 43 IU/L (40-130); Anion Gap 12.5 (5-19); Aspartate Amino Transferase 29 U/L (0-40); Blood Urea Nitrogen 26 mg/dL (8-23); Calcium 9.9 mg/dL (8.5-10.5); Carbon Dioxide 28 mmol/L (22-29); Chloride 102 mmol/L (98-107); Globulin 2.3 g/dL (1.3-4.6); Glomerular Filtration Rate 59.9 mL/min (90-130); Glucose 192 mg/dL (65-115); Lipase 38 U/L (13-60); Osmolality Calculated 296 mOsm/kg (285-295); Potassium 4.5 mmol/L (3.5-5.1); Sodium 138 mmol/L (136-145); Total Bilirubin 0.5 mg/dL (0.15-1.2); Total Protein 6.6 g/dL (6.6-8.7)
[2020-11-25] MEDS: iodixanol 320 mg/mL 100mL Btl IV (20:39)
[2020-11-25] MEDS: HYDROcodone-acetaminophen 10-325 mg Tablet 1 TAB PO (21:45)
[2020-11-25] MEDS: ciprofloxacin 500 mg Tablet PO (21:45)
[2020-11-25] MEDS: metroNIDAZOLE 500 MG Tablet PO (21:45)
[2020-11-25 21:52] VITALS: BP 153/85; RESP 15
--- NOTE | 2020-11-26 09:40 | DCPLANNER ---
manager transfusion had message to schedule a follow up appointment for patient with Dr. Barron. manager transfusion called the office of Dr. Barron, spoke with Tayla, gave clinic patients information. manager transfusion was told that patients information would be printed and reviewed. Clinic will call patient with appointment information.
--- NOTE | 2020-11-30 07:53 | DCPLANNER ---
Patient has a follow up appointment scheduled for Sunday, December 13, 2020 at 8:[address] Barron. Clinic will call patient with appointment information.
--- NOTE | 2020-12-14 15:31 | DCPLANNER ---
Patient had a follow up appointment scheduled for 12.13.[address] Barron - patient did attend appointment.
== END 2020-11-25 21:54 | disposition home or self-care (01) ==
PROVIDERS: Emergency Medicine; Emergency Provider Nurse Practitioner Family; PCP Family Medicine
DX: K57.32 Diverticulitis of large intestine without perforation or abscess without bleeding (principal); R93.41 Abnormal radiologic findings on diagnostic imaging of renal pelvis, ureter, or bladder
CPT/HCPCS: 74177; 80053; 83690; 85025; 93005; 96361; 96374; 96375; 99284; J2270; J2405; J7040; Q9967

== ENCOUNTER → 2020-12-13 08:43 | Outpatient (BNVA) | payer MEDICARE, OTHER, SELFPAY | PROVIDERS: PCP Family Medicine; Visit Provider Urology | DX: R39.9 Unspecified symptoms and signs involving the genitourinary system (principal); N32.89 Other specified disorders of bladder; Z12.5 Encounter for screening for malignant neoplasm of prostate | CPT/HCPCS: 81003; G0103 ==

== ENCOUNTER 2022-02-23 20:37 | Emergency (ER) | payer MEDICARE, OTHER, SELFPAY ==
[2022-02-23 20:51] VITALS: BP 143/78; PULSE 100; RESP 18; TEMP 36.8; O2SAT 92; BMI 31.1
--- NOTE | 2022-02-23 21:00 | ECG_ITS ---
[facility] Test Date: 2022-02-23 Pat Name: Naresh Carmona Department: Room: Gender: Male Clerical Supervisor: : 1950 Requested By: Lowell Arriaza Order Number: [id number] Aaliyah MD: Leonel Wick M.D. Measurements Intervals [place] Rate: 78 P: 95 ID: [id number] QRS: -38 QRSD: 94 T: 78 QT: 389 QTc: 443 Interpretive Statements SINUS RHYTHM LEFT AXIS DEVIATION [QRS AXIS < -30] PATTERN CONSISTENT WITH PULMONARY DISEASE NONSPECIFIC T-WAVE ABNORMALITY Compared to ECG 11/25/2020 20:23:04 No significant changes Electronically Signed On 02-24-2022 18:18:00 CDT by Leonel Wick M.D. [email or web address] [email or web address] [email or web address] [facility].Guanghetang/store/[id number] [email or web address]
[2022-02-23 21:10] LABS: Basophils % 0.7 %; Eosinophils # 0.1 10^3/uL (0.0-0.8); Eosinophils % 1.5 %; Hematocrit 40.5 % (42.0-52.0); Hemoglobin 13.9 g/dL (11.7-16.6); Lymphocytes % 32.9 %; Mean Corpuscular HGB Conc 34.3 g/dL (30.0-36.0); Mean Corpuscular Hemoglobin 32.6 pg (28.0-34.0); Mean Corpuscular Volume 95.1 fl (80-94); Mean Platelet Volume 9.4 fL (7.4-10.4); Monocytes # 0.7 10^3/uL (0.2-0.9); Monocytes % 10.8 %; Neutrophils # 3.28 10^3/uL (1.8-7.7); Neutrophils % 53.6 %; Nucleated Red Blood Cells % 0 %; Platelet Count 206 10^3/cmm (130-400); Red Blood Count 4.26 10^6/uL (4.1-5.3); Red Cell Distribution Width 12.5 % (12.1-15.1); White Blood Count 6.1 10^3/uL (4.0-10.0)
[2022-02-23 21:29] LABS: Troponin(5th) Baseline 15 ng/L (0-15)
[2022-02-23 21:30] LABS: Alanine Aminotransferase 30 U/L (0-41); Albumin Level 4.2 g/dL (3.5-5.2); Alkaline Phosphatase 71 IU/L (40-130); Anion Gap 17.9 (5-19); Aspartate Amino Transferase 22 U/L (0-40); Blood Urea Nitrogen 20 mg/dL (8-23); Calcium 8.7 mg/dL (8.5-10.5); Carbon Dioxide 21 mmol/L (22-29); Chloride 100 mmol/L (98-107); Globulin 2.2 g/dL (1.3-4.6); Glucose 217 mg/dL (65-115); Osmolality Calculated 289 mOsm/kg (285-295); Potassium 3.9 mmol/L (3.5-5.1); Sodium 135 mmol/L (136-145); Total Bilirubin 0.3 mg/dL (0.15-1.2); Total Protein 6.4 g/dL (6.6-8.7)
--- NOTE | 2022-02-23 21:33 | W.ED.CHESTPA ---
HPI - Chest Pain General: Chief Complaint: Chest Pain Stated Complaint: cp Time Seen by Provider: 02/23/22 21:18 Source: patient Mode of arrival: ambulatory Limitations: no limitations History of Present Illness: 72-year-old male who states that he has been having some chest pain and shortness of breath since this morning. He states that his blood pressures been running a little low at home and he was getting concerned. States his chest pains are sharp pain he rates it 3-4 out of 10 its been off and on since this morning. He denies any cough states his dyspnea has been mild. Denies any fever denies any worsening improving factors. Associated symptoms: Reports dyspnea; Deny abdominal pain, fever(s), nausea or vomiting Review of Systems Const: Denies: fever(s), chills, body aches or change in appetite Eyes: Denies: blurry vision or eye discomfort ENMT: Denies: throat pain or dental pain Card: Reports: chest pain Resp: Reports: dyspnea GI: Denies: abdominal pain, nausea, vomiting or diarrhea : Denies: dysuria Musc: Denies: neck pain or back pain Skin/Breast: Denies: rash Neuro: Denies: headache(s) Psych: Denies: depression Rock/Lymph: Denies: easy bruising All/Imm: Denies: urticaria PFSH ED PFSH: Medical History (Updated 02/24/22 @ 00:00 by Lowell Arriaza MD) Hx of diverticulitis of colon Surgical History Hx of transurethral resection of prostate Family History (Updated 12/13/20 @ 07:47 by FRANCISCA Okeefe) Mother , IN HER EARLY 70'S CAD (coronary artery disease) Father , AT AGE 74 LUNG Cancer Social History Smoking and tobacco status: never smoked Alcohol intake: never Marital status: Current occupational status: retired Physical Exam Const: COMMON NORMALS: no acute distress, patient oriented x3 and healthy appearing HENMT: COMMON NORMALS: normocephalic and atraumatic HEAD & SCALP: normocephalic and atraumatic Eye: COMMON NORMALS: Equal, round and reactive pupils present and EOMs intact bilaterally PUPIL: Yes Equal, round and reactive pupils present Neck/C-Spine: COMMON NORMALS: full ROM and supple Chest: COMMONS NORMALS: normal inspection of the chest and normal palpation of entire chest wall Resp: COMMON NORMALS: normal respiratory effort, No retractions, No use of accessory muscles and clear to auscultation bilaterally AUSCULTATION: clear to auscultation bilaterally Cardio: COMMON NORMALS: regular rate, regular rhythm and No murmurs present (Cardio) RATE: regular rate RHYTHM: regular rhythm GI: COMMON NORMALS: Normal to inspection, nondistended, normoactive bowel sounds present, Soft to palpation, non-tender and no masses PALPATION: Yes Soft to palpation Extremity: COMMON NORMALS: normal to inspection and full ROM Neuro: COMMON NORMALS: patient oriented x3, moves all extremities and no focal motor deficits Psych: COMMON NORMALS: mental status grossly normal, Normal thought process present and cooperative THOUGHT PROCESS: Normal thought process present Skin: COMMON NORMALS: no rashes or lesions noted and no wounds GENERAL SKIN EXAM: no rashes or lesions noted Course Vital Signs: Vital signs: Vital Signs Temperature 98.3 F 02/23/22 20:51 Pulse Rate 78 02/23/22 23:50 Respiratory Rate 15 02/23/22 23:50 Blood Pressure 149/89 02/23/22 23:50 Pulse Oximetry 93 02/23/22 23:50 MDM - Chest Pain Medical Decision Making Patient presents here with chest pain that is atypical in nature he said he has had a lot of belching his pain here is resolved with a GI cocktail troponins EKGs and D-dimer all negative he has no signs of cardiac cause he has no signs of pulmonary embolism or dissection. Will get patient follow-up with cardiology he is to follow-up and return if worsening he understands agrees to plan. Lab Data : 02/23/22 21:05 02/23/22 21:05 Laboratory Results WBC 6.1 10^3/uL (4.0-10.0) 02/23/22 21:05 RBC 4.26 10^6/uL (4.1-5.3) 02/23/22 21:05 Hgb 13.9 g/dL (11.7-16.6) 02/23/22 21:05 Hct 40.5 % (42.0-52.0) L 02/23/22 21:05 MCV 95.1 fl (80-94) H 02/23/22 21:05 MCH 32.6 pg (28.0-34.0) 02/23/22 21:05 MCHC 34.3 g/dL (30.0-36.0) 02/23/22 21:05 RDW 12.5 % (12.1-15.1) 02/23/22 21:05 Plt Count 206 10^3/cmm (130-400) 02/23/22 21:05 MPV 9.4 fL (7.4-10.4) 02/23/22 21:05 Neut % (Auto) 53.6 % 02/23/22 21:05 Lymph % (Auto) 32.9 % 02/23/22 21:05 [place] % (Auto) 10.8 % 02/23/22 21:05 Eos % (Auto) 1.5 % 02/23/22 21:05 Baso % (Auto) 0.7 % 02/23/22 21:05 Neut # (Auto) 3.28 10^3/uL (1.8-7.7) 02/23/22 21:05 Lymph # (Auto) 2.0 10^3/uL (0.8-4.8) 02/23/22 21:05 [place] # (Auto) 0.7 10^3/uL (0.2-0.9) 02/23/22 21:05 Eos # (Auto) 0.1 10^3/uL (0.0-0.8) 02/23/22 21:05 Baso # (Auto) 0.0 10^3/uL (0.0-0.1) 02/23/22 21:05 Nucleated RBC % (auto) 0 % 02/23/22 21:05 Nucleated RBCs # 0.0 /100WBC 02/23/22 21:05 D-Dimer 0.38 ug/mIFEU (0-0.59) 02/23/22 21:05 Sodium 135 mmol/L (136-145) L 02/23/22 21:05 Potassium 3.9 mmol/L (3.5-5.1) 02/23/22 21:05 Chloride 100 mmol/L (98-107) 02/23/22 21:05 Carbon Dioxide 21 mmol/L (22-29) L 02/23/22 21:05 Anion Gap 17.9 (5-19) 02/23/22 21:05 BUN 20 mg/dL (8-23) 02/23/22 21:05 Creatinine 1.3 mg/dL (0.7-1.2) H 02/23/22 21:05 GFR Calculation Not Reportable 02/23/22 21:05 Glucose 217 mg/dL (65-115) H 02/23/22 21:05 Calculated Osmolality 289 mOsm/kg (285-295) 02/23/22 21:05 Calcium 8.7 mg/dL (8.5-10.5) 02/23/22 21:05 Total Bilirubin 0.3 mg/dL (0.15-1.2) 02/23/22 21:05 AST 22 U/L (0-40) 02/23/22 21:05 ALT 30 U/L (0-41) 02/23/22 21:05 Alkaline Phosphatase 71 IU/L (40-130) 02/23/22 21:05 Troponin T Baseline 15 ng/L (0-15) 02/23/22 21:05 Troponin T 120 Minute 14.92 ng/L (0-15) 02/23/22 23:20 Delta Troponin T -0.08 ABS# (0-10) L 02/23/22 23:20 Total Protein 6.4 g/dL (6.6-8.7) L 02/23/22 21:05 Albumin 4.2 g/dL (3.5-5.2) 02/23/22 21:05 Globulin 2.2 g/dL (1.3-4.6) 02/23/22 21:05 EKG Data EKG 1: I personally reviewed and interpreted this EKG as follows: EKG interpretation date: 02/23/22 EKG interpretation time: 20:44 Interpretation: sinus tach hr [address] or t wave abnormalities qrs 86 qtc 383 EKG 2: I personally reviewed and interpreted this EKG as follows: EKG interpretation date: 02/23/22 EKG interpretation time: 23:16 Interpretation: nsr hr [address] or t wave abnormalities qrs 94 qtc 422 Discharge Plan Discharge Patient Disposition: Home Clinical Impression: Chest pain Qualifiers: Chest pain type: unspecified Qualified Code(s): R07.9 - Chest pain, unspecified Condition: Stable Prescriptions: No Action atorvastatin 80 mg tablet 80 mg PO DAILY 0RF Tresiba U-100 Insulin 100 unit/mL solution 40 unit SUBCUT DAILY 0RF insulin aspart U-100 [Novolog Flexpen U-100 Insulin] 100 unit/mL (3 mL) insulin pen 22 unit SUBCUT DAILY 0RF venlafaxine 150 mg capsule,extended release 24hr 150 mg PO DAILY 0RF trazodone 100 mg tablet 100 mg PO DAILY 0RF fenofibrate nanocrystallized 145 mg tablet 145 mg PO DAILY 0RF lisinopril 10 mg tablet 10 mg PO DAILY 0RF Lumigan 0.01 % drops 1 drp ophthalmic (eye) DAILY 0RF Rx Instructions: 1 DROP EACH EYE AT NIGHT timolol 0.5 % drops 1 drp ophthalmic (eye) Q12H 0RF Rx Instructions: 1 DROP EACH EYE EVERY 12 HOURS Discharge Orders: Discharge ED (Routine); Ordered 02/24/22 Ordered By: Lowell Arriaza Referrals: Jaylan Montero, [Primary Care Provider] - Discharge Diet: Advance as tolerated Discharge Activity: Resume usual activity Patient Instructions: Chest Pain (ED) Coding Level of Care Code ED Underwater Roboticist for Elo Fwd Exam Comprehensive
[2022-02-23] MEDS: labetalol 5 mg/mL SDV 20mL 10 MG IVP (21:43)
[2022-02-23] MEDS: lidocaine 2% viscous 15 ML, aluminum-mag hydrox-simethicon 30 ML, sucralfate oral liq 1 GM PO (21:43)
[2022-02-23 21:53] LABS: D Dimer 0.38 ug/mIFEU (0-0.59)
--- NOTE | 2022-02-23 23:00 | ECG_ITS ---
[facility] Test Date: 2022-02-23 Pat Name: Naresh Carmona Department: Room: Gender: Male [place] Agent: : 1950 Requested By: Lowell Arriaza Order Number: [id number] Aaliyah MD: Leonel Wick M.D. Measurements Intervals Stanley Rate: 109 P: 18 NM: 148 QRS: -54 QRSD: 86 T: 78 QT: 319 QTc: 430 Interpretive Statements SINUS TACHYCARDIA PATTERN CONSISTENT WITH PULMONARY DISEASE LEFT ANTERIOR FASCICULAR BLOCK [QRS AXIS <= -45, QR IN I, RS IN II] NONSPECIFIC ST & T-WAVE ABNORMALITY Compared to ECG 11/25/2020 20:23:04 Left anterior fascicular block now present Sinus rhythm no longer present Left-axis deviation no longer present T-wave abnormality still present Electronically Signed On 02-24-2022 18:24:23 CDT by Leonel Wick M.D. [id number] f
[2022-02-23 23:50] VITALS: BP 149/89; PULSE 78; RESP 15; O2SAT 93
[2022-02-23 23:50] LABS: Troponin 5 2HR 14.92 ng/L (0-15)
[2022-02-23 23:51] LABS: Troponin 5 2HR Delta -0.08 ABS# (0-10)
[2022-02-24 00:19] VITALS: BP 135/81; PULSE 76; RESP 22; O2SAT 95
--- NOTE | 2022-02-27 14:26 | DCPLANNER ---
Addendum entered by Leesa Goodwin 05/04/22 09:11: Patient had a follow up appointment scheduled with heart care - patient did attend appointment Addendum entered by Leesa Goodwin 03/13/22 18:14: Patient has a follow up appointment scheduled for , April 20, 2022 at 10:[address] Najera at [facility]. Clinic will notify of the scheduled appointment. Original Note: printing manager had message to schedule a follow up appointment for patient with cardiology. printing manager sent patients information to the front office at [facility]. Patients information will have to printed and reviewed. Clinic will call patient with appointment information.
== END 2022-02-24 00:20 | disposition home or self-care (01) ==
PROVIDERS: Emergency Provider Emergency Medicine; PCP Family Medicine
DX: R07.9 Chest pain, unspecified (principal)
CPT/HCPCS: 80053; 84484; 85025; 85378; 93005; 96374; 99285; J3490

== ENCOUNTER → 2022-03-28 09:18 | Outpatient (BNVA) | payer MEDICARE, OTHER, SELFPAY | PROVIDERS: PCP Family Medicine; Visit Provider Internal Medicine Cardiovascular Disease | DX: R07.9 Chest pain, unspecified (principal); I10 Essential (primary) hypertension; R06.02 Shortness of breath; R00.0 Tachycardia, unspecified; E78.5 Hyperlipidemia, unspecified; E11.9 Type 2 diabetes mellitus without complications; Z79.4 Long term (current) use of insulin | CPT/HCPCS: 99204 ==

== ENCOUNTER → 2022-04-25 08:35 | Outpatient (BNVA) | payer MEDICARE, OTHER, SELFPAY | PROVIDERS: PCP Family Medicine; Visit Provider Family Medicine | DX: I10 Essential (primary) hypertension (principal); E78.5 Hyperlipidemia, unspecified; R00.0 Tachycardia, unspecified; E11.9 Type 2 diabetes mellitus without complications; N18.9 Chronic kidney disease, unspecified | CPT/HCPCS: 80053; 80061; 82607; 83036 ==

== ENCOUNTER 2022-05-16 06:33 | Outpatient (CLI) | payer MEDICARE, OTHER, SELFPAY ==
[2022-05-16 06:42] VITALS: BMI 31.1
--- NOTE | 2022-05-16 07:00 | PC.NURSE ---
drs order stated pt was to hold metoprolol for 48 hrs. pt was not aware. nurse called dr and it was okayed to continue with testing.
--- NOTE | 2022-05-16 07:01 | ECG_ITS ---
[facility] Test Date: 2022-05-16 Pat Name: Naresh Carmona Department: Room: Gender: Male Economic Research Analyst: Whitney Silverio : 1950 Requested By: Chhaya Najera Order Number: [id number] Aaliyah MD: Chhaya Najera M.D. Interpretive Statements Name of study: Lexiscan stress test Indication: Chest pain PROCEDURE: At the baseline, the blood pressure was 135/72 mmHg, oxygen saturation 95% with a heart rate of 69 bpm. The electrocardiogram showed sinus rhythm, left axis deviation. Normal ST-T's. The Lexiscan was infused over a period of 20 seconds. A total of 0.4 milligrams of Lexiscan was infused. The stress phase was continued for a total of 5 minutes. Heart rate at the end of the stress phase was 84 bpm, oxygen saturation 96% with a blood pressure of 128/70 mmHg. The EKG at the peak infusion revealed sinus rhythm with no significant ST-T wave changes. The study was terminated due to protocol completion. Sestamibi was injected 20 seconds after the Lexiscan infusion. Blood pressure at the end of the recovery phase was 135/70 mmHg, oxygen saturation 94% with a heart rate of 83 beats per minute. CONCLUSION: 1. No significant EKG changes with the LexiScan infusion. 2. No LexiScan induced chest pain or cardiac arrhythmia. 3. Normal blood pressure and heart rate response. 4. Sestamibi/sestamibi perfusion scan pending; see separate report. Electronically Signed On 05-17-2022 12:23:56 CDT by Chhaya Najera M.D. [id number]
--- NOTE | 2022-05-16 07:02 | NMCV_ITS ---
NM russell perf SPECT r/s* [id number] Naresh Carmona Age: 72 Gender: M : 1950 Exam Date: 05/16/2022 07:46 Ordering Phys: Chhaya Najera MD ([email or web address]) Technologist: LOGAN Moran Exam Location: [facility] Indications: Exertional SHORTNESS OF BREATH STRESS TEST Please see separate stress test report in [facility] for full findings IMAGE PROTOCOL Rest/Stress 1 Lexiscan Day Radiopharmaceutical Dose (mCi) Administration Site Administered by Rest: Tc-99m 10.7 IV LOGAN Wright Sestamibi Stress:Tc-99m 32.6 IV LOGAN Wright Sestamibi Rest: 16-May-2022 60 Discovery 630 Stress: 16-May-2022 30 Discovery 630 0.4mg Lexiscan. Images obtained in supine and prone position. SPECT RESULTS Technical Quality: Excellent Raw Data Analysis: Normal Image Corrections: No attenuation or motion correction applied Summed Stress Score: 6 Summed Rest Score: 6 Summed Difference Score: 1 PERFUSION FINDINGS Small sized perfusion abnormality of moderate severity of mid inferolateral, apical lateral and apical wall with improved tracer uptake on stress images. This is suggestive of attenuation artifact. FUNCTIONAL RESULTS (calculated via Gated SPECT) Stress Image LV EF (%): 51 Stress EDV (mL):112 TID: 0.93 Stress ESV (mL):55 FUNCTIONAL FINDINGS: The left ventricle is normal in size. Transient Ischemia Dilatation of 0.93. The left ventricular ejection fraction is mildly reduced with a value of 51%. There is no regional wall motion abnormality. IMPRESSIONS 1. Myocardial perfusion imaging is normal. 2. The left ventricular ejection fraction is mildly reduced with a value of 51%. 3. There is no regional wall motion abnormality. 4. No coronary ischemia based on the study. 5. EKG portion of the study will be reported separately. Chhaya Najera MD (Electronically Signed) Final Date: 17 May 2022 16:33 S
--- NOTE | 2022-05-16 08:00 | USCV_ITS ---
Naresh Carmona Age: 72 Gender: M : 1950 Exam Date: 05/16/2022 07:17 Ordering Phys: Chhaya Najera MD ([email or web address]) Technologist: Michael Carter Exam Location: [facility] [place] Indication: Chest pain BP: 135 / 74 HR: 59 Rhythm: Sinus Technical Quality: Adequate MEASUREMENTS (Male / Female) Normal Values 2D ECHO LV Diastolic Diameter PLAX 4.1 cm 4.2 - 5.9 / 3.9 - 5.3 cm LV Systolic Diameter PLAX 2.4 cm IVS Diastolic Thickness 1.4 cm 0.6 - 1.0 / 0.6 - 0.9 cm IVS Systolic Thickness 1.4 cm LVPW Diastolic Thickness 1.1 cm 0.6 - 1.0 / 0.6 - 0.9 cm LVPW Systolic Thickness 1.5 cm LVOT Diameter 2.2 cm LV Ejection Fraction 2D Teich 72.1 % LV Ejection Fraction MOD 2C 63.0 % LV Ejection Fraction 2C AL 60.7 % LA Diameter 3.9 cm M-MODE Aortic Annulus Diameter 3.6 cm LA Ao Ratio MM 1.2 MV E Point Septal Separation 1.6 cm DOPPLER AV Peak Velocity 111.0 cm/s LVOT Peak Velocity 80.0 cm/s AV Area Cont Eq vti 2.8 cm squared AV Area Cont Eq pk 2.7 cm squared MV Area PHT 5.0 cm squared Mitral E to A Ratio 0.8 MV E' Velocity 36.0 cm/s Mitral E to MV E' Ratio 8.4 Mitral E to LV E' Lateral Ratio 6.9 Mitral E to LV E' Septal Ratio 10.8 TR Peak Velocity 139.0 cm/s TR Peak Gradient 7.7 mmHg TV Peak E Velocity 71.0 cm/s Right Atrial Pressure 3.0 mmHg Pulmonary Artery Systolic Pressu 10.7 mmHg PV Peak Velocity 105.0 cm/s RV Acceleration Time 0.2 s FINDINGS Left Ventricle Normal left ventricular size, wall thickness and systolic function. Left ventricular ejection fraction is estimated at 55 %. No regional wall motion abnormality. Normal diastolic function. Right Ventricle Normal right ventricular size and systolic function. Right Atrium Normal right atrial size. Left Atrium Normal left atrial size. Mitral Valve Structurally normal mitral valve. No mitral valve stenosis. Trace mitral valve regurgitation. Aortic Valve Aortic valve not well visualized. No aortic valve stenosis. Trace aortic valve regurgitation. Tricuspid Valve Structurally normal tricuspid valve. Trace tricuspid valve regurgitation. Pulmonic Valve Pulmonic valve not well visualized. No pulmonary valve stenosis. Pericardium No pericardial effusion. Aorta Normal size aortic root and proximal ascending aorta. IVC Inferior vena cava not visualized. CONCLUSIONS 1. Normal left ventricular size, wall thickness and systolic function. Left ventricular ejection fraction is estimated at 55 %. No regional wall motion abnormality. Normal diastolic function. 2. Normal right ventricular size and systolic function. 3. Trace aortic valve regurgitation. 4. Direct comparison previous echocardiogram dated 12/10/2014 is not possible due to technical differences in study. Chhaya Najera MD (Electronically Signed) Final Date: 17 May 2022 16:52 S
[2022-05-16] MEDS: regadenoson 0.4 Mg/5 ml Syringe IVP (08:17)
[2022-05-16 08:30] VITALS: BP 135/70; PULSE 83
== END 2022-05-16 06:34 | disposition home or self-care (01) ==
LOC: CDL 06:37
PROVIDERS: PCP Family Medicine; Visit Provider Internal Medicine Cardiovascular Disease
DX: R06.02 Shortness of breath (principal); R07.9 Chest pain, unspecified; I35.1 Nonrheumatic aortic (valve) insufficiency
CPT/HCPCS: 78452; 93017; 93306; A9500; J2785

== ENCOUNTER → 2022-09-07 08:04 | Outpatient (BNVA) | payer MEDICARE, OTHER, SELFPAY | PROVIDERS: PCP Family Medicine; Visit Provider Family Medicine | DX: E11.9 Type 2 diabetes mellitus without complications (principal) | CPT/HCPCS: 80053; 80061; 82043; 83036 ==

== ENCOUNTER → 2023-03-07 09:31 | Outpatient (BNVA) | payer MEDICARE, OTHER, SELFPAY | PROVIDERS: PCP Family Medicine; Visit Provider Family Medicine | DX: E11.65 Type 2 diabetes mellitus with hyperglycemia (principal); E78.2 Mixed hyperlipidemia; I10 Essential (primary) hypertension | CPT/HCPCS: 80048; 82043; 83036 ==

== ENCOUNTER 2023-06-12 10:04 | Outpatient (CLI) | payer MEDICARE, OTHER, SELFPAY ==
--- NOTE | 2023-06-12 10:09 | XR_ITS ---
WS: [id number] Exam: XR cervical spine 4-5V [id number] Date/Time of Exam: 06/12/2023 10:12 AM Reason For Exam: R20.0 - Anesthesia of skin No acute fracture or dislocation noted. Early degenerative disc narrowing and spondylosis from C5-C7. 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 No significant flexion or extension instability. Normal paraspinal soft tis sues. The odontoid is intact. Mild bilateral carotid artery calcifications. IMPRESSION: 1. Degenerative changes as detailed above. 2. No fracture or malalignment. No instability demonstrated.
== END 2023-06-12 10:05 | disposition home or self-care (01) ==
PROVIDERS: PCP Family Medicine; Visit Provider Family Medicine
DX: R20.0 Anesthesia of skin (principal); M47.812 Spondylosis without myelopathy or radiculopathy, cervical region; M50.322 Other cervical disc degeneration at C5-C6 level
CPT/HCPCS: 72050

== ENCOUNTER 2023-07-09 20:23 | Emergency (ER) | payer MEDICARE, OTHER, SELFPAY ==
[2023-07-09 20:52] VITALS: BP 174/68; PULSE 108; RESP 18; TEMP 36.8; O2SAT 95; BMI 31.1
[2023-07-09 20:59] LABS: Basophils % 0.3 %; Eosinophils # 0.1 10^3/uL (0.0-0.8); Hematocrit 41.8 % (37-53); Lymphocytes # 1.9 10^3/uL (0.8-4.8); Lymphocytes % 20.8 %; Mean Corpuscular HGB Conc 33.7 g/dL (30-55); Mean Corpuscular Hemoglobin 32.5 pg (27-33); Mean Corpuscular Volume 96.3 fl (82-101); Mean Platelet Volume 9.1 fL (7.4-10.4); Monocytes % 11.3 %; Neutrophils % 66.4 %; Nucleated Red Blood Cells % 0 %; Platelet Count 178 10^3/cmm (157-399); Red Blood Count 4.34 10^6/uL (3.85-5.65); Red Cell Distribution Width 13.1 % (12.1-15.1); White Blood Count 9.19 10^3/uL (3.29-11.43)
[2023-07-09 21:20] LABS: Alanine Aminotransferase 18 U/L (0-41); Albumin Level 4.1 g/dL (3.5-5.2); Alkaline Phosphatase 48 U/L (40-130); Anion Gap 13.2 (5-19); Aspartate Amino Transferase 18 U/L (0-40); Blood Urea Nitrogen 17 mg/dL (8-23); Carbon Dioxide 26 mmol/L (22-29); Chloride 103 mmol/L (98-107); Globulin 2.5 g/dL (1.3-4.6); Glucose 188 mg/dL (65-115); Lipase 28 U/L (13-60); Osmolality Calculated 293 mOsm/kg (285-295); Potassium 4.2 mmol/L (3.5-5.1); Sodium 138 mmol/L (136-145); Total Bilirubin 0.5 mg/dL (0.15-1.2); Total Protein 6.6 g/dL (6.6-8.7)
--- NOTE | 2023-07-09 23:41 | W.ED.ABDPA2 ---
HPI - Abdominal Pain General: Chief Complaint: Abdominal Pain Stated Complaint: abdominal pain Time Seen by Provider: 07/09/23 23:41 History of Present Illness: 73-year-old male patient comes in today with complaints of left lower quadrant abdominal pain. Patient has a history of diverticulitis and believes it has flared up. Patient denies any nausea, patient denies any blood in vomit or stool, patient appears nontoxic. Patient appears moderate pain. Associated Symptoms: Denies constipation, diarrhea, fever(s), nausea and vomiting Review of Systems General: Reports: 10 or more systems reviewed and unremarkable except in HPI and below Const: Denies: fever(s) Card: Denies: chest pain Resp: Denies: dyspnea GI: Reports: abdominal pain; Denies: nausea, vomiting, diarrhea or constipation : Denies: difficulty urinating Musc: Denies: neck pain or back pain PFSH ED PFSH: Medical History (Updated 07/09/23 @ 23:49 by KENJI Curry) Diabetes mellitus HTN (hypertension) Hx of diverticulitis of colon Hyperlipidemia Surgical History (Updated 03/28/22 @ 10:03 by Chhaya Najera MD) History of back surgery History of elbow surgery Hx of transurethral resection of prostate S/P eye surgery S/P hernia surgery S/P shoulder surgery S/P wrist surgery Family History Mother , IN HER EARLY 70'S CAD (coronary artery disease) Father , AT AGE 74 LUNG Cancer Social History Smoking and tobacco/nicotine status: never used tobacco/nicotine Alcohol intake: never Marital status: Current occupational status: retired Physical Exam Const: COMMON NORMALS: alert HENMT: COMMON NORMALS: normocephalic HEAD & SCALP: normocephalic Neck/C-Spine: COMMON NORMALS: full ROM Resp: COMMON NORMALS: normal respiratory effort and clear to auscultation bilaterally AUSCULTATION: clear to auscultation bilaterally Cardio: COMMON NORMALS: regular rate and regular rhythm RATE: regular rate RHYTHM: regular rhythm GI: COMMON NORMALS: Soft to palpation AUSCULTATION: Yes normoactive bowel sounds PALPATION: Yes Soft to palpation and Yes Tenderness to palpation present (GI) Details: LLQ : COMMON NORMALS: Yes no CVA tenderness BLADDER/KIDNEY EXAM: Yes no CVA tenderness Back/Pelvis: COMMON NORMALS: no CVA tenderness Extremity: COMMON NORMALS: normal to inspection Neuro: SENSORIUM/ORIENTATION: Yes alert Skin: COMMON NORMALS: turgor normal GENERAL SKIN EXAM: turgor normal Course Vital Signs: Vital signs: Vital Signs Temperature 98.3 F 07/09/23 20:52 Pulse Rate 110 H 07/09/23 23:51 Respiratory Rate 16 07/09/23 23:51 Blood Pressure 123/90 07/09/23 23:51 Pulse Oximetry 94 07/09/23 23:51 Oxygen Delivery Me thod Room Air 07/09/23 20:52 MDM - Abdominal Pain Medical Decision Making Patient comes in for left lower quadrant abdominal pain. On exam patient appears nontoxic. Patient has tenderness in the left lower quadrant. Vital signs are normal. Patient endorses a history of diverticulitis. Differential diagnosis includes constipation, bowel obstruction, perforation of the bowel, urinary tract infection. CBC and CMP were unremarkable. Believe patient is correct with his diagnosis of diverticulitis. We will go ahead and treat with Cipro and Flagyl and medications for pain. Recommended patient monitor closely for worsening symptoms such as high fever greater than 100.4, worsening pain and discomfort, blood in vomit or stool. Patient will return for these abnormalities and worsening symptoms to the emergency department. Lab Data 07/09/23 20:52 07/09/23 20:52 Labs/Radiology: Laboratory Results WBC 9.19 10^3/uL (3.29-11.43) 07/09/23 20:52 RBC 4.34 10^6/uL (3.85-5.65) 07/09/23 20:52 Hgb 14.10 g/dL (11.27-16.99) 07/09/23 20:52 Hct 41.8 % (37-53) 07/09/23 20:52 MCV 96.3 fl (82-101) 07/09/23 20:52 MCH 32.5 pg (27-33) 07/09/23 20:52 MCHC 33.7 g/dL (30-55) 07/09/23 20:52 RDW 13.1 % (12.1-15.1) 07/09/23 20:52 Plt Count 178 10^3/cmm (157-399) 07/09/23 20:52 MPV 9.1 fL (7.4-10.4) 07/09/23 20:52 Neut % (Auto) 66.4 % 07/09/23 20:52 Lymph % (Auto) 20.8 % 07/09/23 20:52 Gilliam % (Auto) 11.3 % 07/09/23 20:52 Eos % (Auto) 1.0 % 07/09/23 20:52 Baso % (Auto) 0.3 % 07/09/23 20:52 Neut # (Auto) 6.10 10^3/uL (1.8-7.7) 07/09/23 20:52 Lymph # (Auto) 1.9 10^3/uL (0.8-4.8) 07/09/23 20:52 Gilliam # (Auto) 1.0 10^3/uL (0.2-0.9) H 07/09/23 20:52 Eos # (Auto) 0.1 10^3/uL (0.0-0.8) 07/09/23 20:52 Baso # (Auto) 0.0 10^3/uL (0.0-0.1) 07/09/23 20:52 Nucleated RBC % (auto) 0 % 07/09/23 20:52 Nucleated RBCs # 0.0 /100WBC 07/09/23 20:52 Sodium 138 mmol/L (136-145) 07/09/23 20:52 Potassium 4.2 mmol/L (3.5-5.1) 07/09/23 20:52 Chloride 103 mmol/L (98-107) 07/09/23 20:52 Carbon Dioxide 26 mmol/L (22-29) 07/09/23 20:52 Anion Gap 13.2 (5-19) 07/09/23 20:52 BUN 17 mg/dL (8-23) 07/09/23 20:52 Creatinine 1.1 mg/dL (0.7-1.2) 07/09/23 20:52 GFR Calculation Not Reportable 07/09/23 20:52 Glucose 188 mg/dL (65-115) H 07/09/23 20:52 Calculated Osmolality 293 mOsm/kg (285-295) 07/09/23 20:52 Calcium 9.0 mg/dL (8.5-10.5) 07/09/23 20:52 Total Bilirubin 0.5 mg/dL (0.15-1.2) 07/09/23 20:52 AST 18 U/L (0-40) 07/09/23 20:52 ALT 18 U/L (0-41) 07/09/23 20:52 Alkaline Phosphatase 48 U/L (40-130) 07/09/23 20:52 Total Protein 6.6 g/dL (6.6-8.7) 07/09/23 20:52 Albumin 4.1 g/dL (3.5-5.2) 07/09/23 20:52 Globulin 2.5 g/dL (1.3-4.6) 07/09/23 20:52 Lipase 28 U/L (13-60) 07/09/23 20:52 No radiology studies performed this visit Discharge Plan Discharge Patient Disposition: Home Clinical Impression: Diverticulitis Condition: Stable Prescriptions: New ciprofloxacin HCl 500 mg tablet 500 mg PO BID Qty: 10 0RF metronidazole 500 mg tablet 500 mg PO Q8H 5 Days Qty: 15 0RF hydrocodone-acetaminophen 5-325 mg tablet 1 tab PO Q6H PRN (Reason: pain (scale score 7-10)) Qty: 10 0RF No Action Tresiba U-100 Insulin 100 unit/mL solution 40 unit SUBCUT DAILY fenofibrate nanocrystallized 145 mg tablet 145 mg PO DAILY timolol 0.5 % drops 1 drp ophthalmic (eye) Q12H Rx Instructions: 1 DROP EACH EYE EVERY 12 HOURS Lumigan 0.01 % drops 1 drp ophthalmic (eye) .HS Rx Instructions: 1 DROP EACH EYE AT NIGHT insulin aspart U-100 [Novolog FlexPen U-100 Insulin] 100 unit/mL (3 mL) insulin pen 22 unit SUBCUT .sliding scale Paxlovid 150 mg x 2- 100 mg tablet See Rx Instructions PO .COMPLEX Qty: 30 0RF Rx Instructions: take TWO 150 mg tablets of nirmatrelvir with ONE 100 mg tablet of ritonavir twice daily for 5 days PO lisinopril 10 mg tablet See Rx Instructions .ROUTE .COMPLEX Qty: 180 3RF Dose Instruction: TAKE 1-2 TABLETS BY MOUTH DAILY FOR BLOOD PRESSURE Rx Instructions: TAKE 1-2 TABLETS BY MOUTH DAILY FOR BLOOD PRESSURE metoprolol tartrate 25 mg tablet 25 mg PO BID Qty: 180 3RF venlafaxine 150 mg capsule,extended release 24hr See Rx Instructions .ROUTE .COMPLEX Qty: 90 3RF Dose Instruction: TAKE 1 CAPSULE BY MOUTH EVERY DAY Rx Instructions: TAKE 1 CAPSULE BY MOUTH EVERY DAY amoxicillin-pot clavulanate 875-125 mg tablet 1 tab PO BID Qty: 20 0RF sildenafil 100 mg tablet 50 - 100 mg PO DAILY PRN (Reason: sexual activity) Qty: 30 5RF Rx Instructions: administer 30 minutes to 4 hours before activity trazodone 100 mg tablet See Rx Instructions .ROUTE .COMPLEX Qty: 30 5RF Dose Instruction: TAKE 1 TABLET BY MOUTH EVERYDAY AT BEDTIME Rx Instructions: TAKE 1 TABLET BY MOUTH EVERYDAY AT BEDTIME atorvastatin 80 mg tablet See Rx Instructions .ROUTE .COMPLEX Qty: 90 3RF Dose Instruction: TAKE 1 TABLET BY MOUTH EVERY DAY AT NIGHT Rx Instructions: TAKE 1 TABLET BY MOUTH EVERY DAY AT NIGHT Discharge Orders: Discharge ED (Routine); Ordered 07/09/23 Ordered By: Bhavik Mobley Referrals: Jaylan Montero DO [Primary Care Provider] - Discharge Diet: Usual diet Discharge Activity: Increase activity as tolerated Patient Instructions: Diverticulitis (ED) Activity Restrictions/Additional Instructions: Drink plenty of water and fluids. Eat a clear liquid diet until abdominal pain improves. Then increase diet to a bland diet. You may want to avoid seeds and nuts while having pain from your diverticulitis. Otherwise, you can eat a normal diet. Follow-up with primary care for further evaluation. Return to ER for worsening symptoms such as high fever, blood in vomit or stool, inability to hold fluids down, or new concerns. Coding Level of Care Code ED [employer] for [employer]
[2023-07-09 23:51] VITALS: BP 123/90; PULSE 110; RESP 16; O2SAT 94
[2023-07-09] MEDS: ciprofloxacin 500 mg Tablet PO (23:52)
[2023-07-09] MEDS: HYDROcodone-acetaminophen 10-325 mg Tablet 1 TAB PO (23:52)
[2023-07-09] MEDS: metroNIDAZOLE 500 MG Tablet PO (23:53)
== END 2023-07-10 00:02 | disposition home or self-care (01) ==
PROVIDERS: Emergency Medicine; Emergency Provider Nurse Practitioner Family; PCP Family Medicine
DX: K57.92 Diverticulitis of intestine, part unspecified, without perforation or abscess without bleeding (principal); Z79.4 Long term (current) use of insulin; E11.9 Type 2 diabetes mellitus without complications; I10 Essential (primary) hypertension; E78.5 Hyperlipidemia, unspecified
CPT/HCPCS: 36415; 80053; 83690; 85025; 99283

== ENCOUNTER → 2023-08-01 10:08 | Outpatient (BNVA) | payer MEDICARE, OTHER, SELFPAY | PROVIDERS: PCP Family Medicine; Visit Provider Internal Medicine Cardiovascular Disease | DX: I10 Essential (primary) hypertension (principal); Z87.898 Personal history of other specified conditions | CPT/HCPCS: 99214 ==

== ENCOUNTER → 2023-09-14 08:19 | Outpatient (BNVA) | payer MEDICARE, OTHER, SELFPAY | PROVIDERS: PCP Family Medicine; Visit Provider Family Medicine | DX: E11.9 Type 2 diabetes mellitus without complications (principal); E03.8 Other specified hypothyroidism | CPT/HCPCS: 80048; 80061; 83036 ==

== ENCOUNTER 2023-10-20 13:29 | Emergency (ER) | payer MEDICARE, OTHER, SELFPAY ==
[2023-10-20 13:35] VITALS: BP 125/69; PULSE 108; RESP 17; TEMP 36.8; O2SAT 94; BMI 30.9
--- NOTE | 2023-10-20 14:34 | XRR_ITS ---
PROCEDURE INFORMATION: Exam: XR Cervical Spine Exam date and time: 10/20/2023 2:49 PM Age: 73 years old Clinical indication: Neck pain TECHNIQUE: Imaging protocol: Radiologic exam of the cervical spine. Views: 2 or 3 views. COMPARISON: CR XR cervical spine 4-5V [id number] 06/12/2023 10:13 AM FINDINGS: Bones/joints: Multilevel moderate to severe disc space narrowing and degenerative disc calcification throughout largely the mid to lower cervical spine. Soft tissues: Unremarkable. XR/XR cervical spine 3V* [id number] IMPRESSION: Multilevel moderate to severe disc space narrowing and degenerative disc calcification throughout largely the mid to lower cervical spine.
--- NOTE | 2023-10-20 14:37 | W.ED.NECK ---
Documented by User: SHAY Shell 10/20/23 16:30 HPI - Neck Pain/Injury General: Chief Complaint: Neck Pain/Injury Stated Complaint: neck pain Time Seen by Provider: 10/20/23 14:03 Source: patient Mode of arrival: ambulatory Limitations: no limitations History of Present Illness: Patient is a 73-year-old male past medical history of diabetes, HLD, and HTN who presents to the emergency department complaining of left lateral neck and head pain onset 4 days. Patient was previously seen on at his PCP for the same complaint, where he was prescribed pregabalin and given topical lidocaine. He states the initial pain started approximately on Sunday while he was driving, and he was not significantly exerting himself. He has never had the pain before and has no history of neck injuries or surgeries. He states that initially filled like a tingling sensation to the left neck and has quickly turned into a sharp stabbing pain. He also states that hydrocodone has not relieved his pain. The pain is worsened with any range of motion, but he states there is some relief with flexion, specifically chin to chest. He denies any extremity weakness or sensory changes, abnormal gait, visual changes, and denies noticing any facial asymmetries, altered mentation, or other concerning signs for stroke. All other symptoms are denied at this time, the patient denies any recent sickness. MD complaint: neck pain Onset (ago): day(s) (4) Place: home Radiation: left lateral and head Severity: severe Quality: sharp and stabbing Duration: constant Relieving factors: none Exacerbating factors: movement of neck Associated symptoms: Reports headache(s); Denies difficulty walking, dizziness or nausea Review of Systems General: Reports: 10 or more systems reviewed and unremarkable except in HPI and below Const: Denies: fever(s), chills, change in weight or fatigue Eyes: Denies: change in vision or photophobia ENMT: Denies: throat pain, ear or mastoid pain or nasal discharge Card: Denies: chest pain, palpitations, swelling of feet/ankles or lightheadedness Resp: Denies: dyspnea, productive cough or wheezing GI: Denies: abdominal pain, nausea, vomiting, diarrhea or constipation : Denies: flank pain, difficulty urinating, dysuria or urinary frequency Musc: Reports: neck pain; Denies: back pain or joint pain Skin/Breast: Denies: rash Neuro: Reports: headache(s); Denies: numbness in extremities, weakness in extremities, sensory changes, difficulty walking, dizziness or Slurred speech present PFSH ED PFSH: Medical History HTN (hypertension) Hyperlipidemia Diabetes mellitus Hx of diverticulitis of colon Surgical History History of back surgery S/P wrist surgery S/P shoulder surgery S/P hernia surgery History of elbow surgery S/P eye surgery Hx of transurethral resection of prostate Family History Mother , IN HER EARLY 70'S CAD (coronary artery disease) Father , AT AGE 74 LUNG Cancer Social History Smoking and tobacco/nicotine status: never used tobacco/nicotine Alcohol intake: never Marital status: Current occupational status: retired Physical Exam Const: COMMON NORMALS: average body habitus, patient oriented x3, no limitations, healthy appearing, alert and well nourished GENERAL APPEARANCE: cooperative, well developed and in distress (From pain) ORIENTATION/CONSCIOUSNESS: Yes awake, Yes oriented to person, Yes oriented to place and Yes oriented to time HENMT: COMMON NORMALS: normocephalic, atraumatic, hearing grossly normal bilaterally, external ears normal, EAC's normal, TM's normal bilaterally and Normal external nose present HEAD & SCALP: normocephalic and atraumatic NOSE: Normal external nose present EXTERNAL EAR: Yes external ears normal EXTERNAL AUDITORY CANAL: EAC's normal TYMPANIC MEMBRANE: TM's normal bilaterally Eye: COMMON NORMALS: Equal, round and reactive pupils present, EOMs intact bilaterally and conjunctivae normal CONJUNCTIVA: Yes conjunctivae normal PUPIL: Yes Equal, round and reactive pupils present Neck/C-Spine: COMMON NORMALS: no lymphadenopathy, supple, no meningeal signs and no JVD GENERAL: Yes normal visual inspection CERVICAL SPINE: Yes cervical ROM abnormal (Limited from pain in all alejo, slight relief with flexion) OTHER: Reproducible tenderness to palpation about the left lateral neck, as well as the posterior aspect of the temporal bone, extending down to the distal left trapezius muscle. No signs of bruising, deformities, or other abnormal findings. Resp: COMMON NORMALS: normal respiratory effort, No retractions, No use of accessory muscles and clear to auscultation bilaterally AUSCULTATION: clear to auscultation bilaterally Cardio: COMMON NORMALS: no JVD, regular rate, regular rhythm, S1 normal heart sound present, S2 normal heart sound present, No gallops present (Cardio), No clicks present (Cardio), No murmurs present (Cardio), No rub (Cardio) and Peripheral pulses 2+ throughout RATE: regular rate RHYTHM: regular rhythm HEART SOUNDS: S1 normal heart sound present and S2 normal heart sound present PERIPHERAL PULSES: Peripheral pulses 2+ throughout Back/Pelvis: COMMON NORMALS: thoracic and lumbar spine normal to inspection, no thoracic nor lumbar tenderness and thoraco-lumbar ROM normal Extremity: COMMON NORMALS: normal to inspection, full ROM, capillary refill normal, no joint enlargement and no clubbing, cyanosis or edema Neuro: COMMON NORMALS: patient oriented x3, CN's II-XII intact bilaterally, moves all extremities, no focal motor deficits, no sensory deficits noted and deep tendon reflexes 2+ bilaterally SENSORIUM/ORIENTATION: Yes alert, Yes oriented to person, Yes oriented to place and Yes oriented to time MENINGEAL SIGNS: Yes no meningeal signs SPEECH: speech normal GAIT: Yes Normal gait present MOTOR EXAM: 5/5 motor strength present throughout Psych: COMMON NORMALS: mental status grossly normal, Normal thought process present, cooperative, normal affect and speech normal SPEECH: Yes normal speech THOUGHT PROCESS: Normal thought process present Skin: COMMON NORMALS: no rashes or lesions noted and turgor normal GENERAL SKIN EXAM: no rashes or lesions noted and turgor normal Course Vital Signs: Vital signs: Vital Signs Temperature 98.3 F 10/20/23 13:35 Pulse Rate 108 H 10/20/23 13:35 Respiratory Rate 17 10/20/23 13:35 Blood Pressure 125/69 10/20/23 13:35 Pulse Oximetry 94 10/20/23 13:35 Oxygen Delivery Me thod Room Air 10/20/23 13:35 MDM - Neck Pain/Injury Medical Decision Making This patient was seen and evaluated in the emergency department today for 4 days of left lateral neck pain. Patient has been taking pregabalin and lidocaine topical for symptoms as prescribed by primary care provider, but states his symptoms were not improving. Initial injury, patient denies any exertional component and states it popped up all of a sudden while driving. Vitals have remained normal. Patient given IM doses of Toradol, Decadron, and Norflex. Upon recheck patient states he feels a little better, but still can feel the pain to the left neck. Cervical x-ray demonstrated moderate to severe disc space narrowing indicative of some degenerative changes. There were however no acute signs of fracture or other emergency findings. Because of this, I believe the patient can follow-up with his primary doctor in the next couple days to discuss further imaging and potential orthopedic referral. I will send prescription for a p.o. steroid and muscle relaxer for the patient to take, as well as encouraging to use ibuprofen for added relief. Reasons to return are discussed, including any neurological changes such as visual changes or peripheral neurovascular issues. Patient agrees with plan for discharge, and he will follow-up early next week. Patient discharged home. Medical Records I reviewed the patient's medical records. Lab Data Radiology Impressions Cervical Spine X-Ray 10/20/23 14:34 IMPRESSION: Multilevel moderate to severe disc space narrowing and degenerative disc calcification throughout largely the mid to lower cervical spine. All radiology interpretation(s) finalized by discharge Discharge Plan Discharge Patient Disposition: Home Clinical Impression: Degenerative disc disease, cervical Neck strain Qualifiers: Encounter type: initial encounter Qualified Code(s): S16.1XXA - Strain of muscle, fascia and tendon at neck level, initial encounter Condition: Stable Prescriptions: New prednisone 20 mg tablet 60 mg PO ONCE 5 Days Qty: 15 0RF cyclobenzaprine 10 mg tablet 10 mg PO TID PRN (Reason: muscle spasm) Qty: 30 0RF No Action Tresiba U-100 Insulin 100 unit/mL solution 40 unit SUBCUT DAILY fenofibrate nanocrystallized 145 mg tablet 145 mg PO DAILY timolol 0.5 % drops 1 drp ophthalmic (eye) Q12H Rx Instructions: 1 DROP EACH EYE EVERY 12 HOURS Lumigan 0.01 % drops 1 drp ophthalmic (eye) .HS Rx Instructions: 1 DROP EACH EYE AT NIGHT insulin aspart U-100 [Novolog FlexPen U-100 Insulin] 100 unit/mL (3 mL) insulin pen 22 unit SUBCUT .sliding scale metoprolol tartrate 25 mg tablet 25 mg PO BID Qty: 180 3RF amoxicillin-pot clavulanate 875-125 mg tablet 1 tab PO BID Qty: 20 0RF pregabalin [Lyrica] 75 mg capsule 75 mg PO BID Qty: 20 0RF lidocaine 5 % gel See Rx Instructions .ROUTE .COMPLEX Qty: 30 2RF Rx Instructions: apply to affected painful area up to qid; Paxlovid 150 mg x 2- 100 mg tablet See Rx Instructions PO .COMPLEX Qty: 30 0RF Rx Instructions: take TWO 150 mg tablets of nirmatrelvir with ONE 100 mg tablet of ritonavir twice daily for 5 days PO sildenafil 100 mg tablet 50 - 100 mg PO DAILY PRN (Reason: sexual activity) Qty: 30 5RF Rx Instructions: administer 30 minutes to 4 hours before activity atorvastatin 80 mg tablet See Rx Instructions .ROUTE .COMPLEX Qty: 90 3RF Dose Instruction: TAKE 1 TABLET BY MOUTH EVERY DAY AT NIGHT Rx Instructions: TAKE 1 TABLET BY MOUTH EVERY DAY AT NIGHT trazodone 100 mg tablet See Rx Instructions .ROUTE .COMPLEX Qty: 90 3RF Dose Instruction: TAKE 1 TABLET BY MOUTH EVERYDAY AT BEDTIME Rx Instructions: TAKE 1 TABLET BY MOUTH EVERYDAY AT BEDTIME venlafaxine 150 mg capsule,extended release 24hr See Rx Instructions .ROUTE .COMPLEX Qty: 90 3RF Dose Instruction: TAKE 1 CAPSULE BY MOUTH EVERY DAY Rx Instructions: TAKE 1 CAPSULE BY MOUTH EVERY DAY lisinopril 10 mg tablet See Rx Instructions .ROUTE .COMPLEX Qty: 180 3RF Dose Instruction: TAKE 1-2 TABLETS BY MOUTH DAILY FOR BLOOD PRESSURE Rx Instructions: TAKE 1-2 TABLETS BY MOUTH DAILY FOR BLOOD PRESSURE hydrocodone-acetaminophen 5-325 mg tablet 1 tab PO Q6H PRN (Reason: pain (scale score 7-10)) Qty: 10 0RF Discharge Orders: Discharge ED (Routine); Ordered 10/20/23 Ordered By: Carlos No Referrals: Jaylan Montero DO [Primary Care Provider] - Discharge Diet: Usual diet Discharge Activity: Increase activity as tolerated Patient Instructions: Cervical Strain (ED), Degenerative Disc Disease (ED) Activity Restrictions/Additional Instructions: Follow-up with your primary care provider early next week for further evaluation and discuss any necessary imaging. Take prednisone and cyclobenzaprine as prescribed. Take ibuprofen as needed. Please return if you develop any new neurological symptoms including visual changes or weakness/numbness in your arms or legs. Coding Level of Care Code ED [employer] for [employer] Documented by User: Kemal Hernandez DO 10/22/23 06:37 HPI - Neck Pain/Injury General: Chief Complaint: Neck Pain/Injury Stated Complaint: neck pain Time Seen by Provider: 10/20/23 14:03 PFSH ED PFSH: Medical History HTN (hypertension) Hyperlipidemia Diabetes mellitus Hx of diverticulitis of colon Surgical History History of back surgery S/P wrist surgery S/P shoulder surgery S/P hernia surgery History of elbow surgery S/P eye surgery Hx of transurethral resection of prostate Family History Mother , IN HER EARLY 70'S CAD (coronary artery disease) Father , AT AGE 74 LUNG Cancer Social History Smoking and tobacco/nicotine status: never used tobacco/nicotine Alcohol intake: never Marital status: Current occupational status: retired Course Vital Signs: Vital signs: Vital Signs Temperature 98.3 F 10/20/23 13:35 Pulse Rate 108 H 10/20/23 13:35 Respiratory Rate 17 10/20/23 13:35 Blood Pressure 125/69 10/20/23 13:35 Pulse Oximetry 94 10/20/23 13:35 Oxygen Delivery Me thod Room Air 10/20/23 13:35 MDM - Neck Pain/Injury Medical Decision Making This patient was seen and evaluated in the emergency department today for 4 days of left lateral neck pain. Patient has been taking pregabalin and lidocaine topical for symptoms as prescribed by primary care provider, but states his symptoms were not improving. Initial injury, patient denies any exertional component and states it popped up all of a sudden while driving. Vitals have remained normal. Patient given IM doses of Toradol, Decadron, and Norflex. Upon recheck patient states he feels a little better, but still can feel the pain to the left neck. Cervical x-ray demonstrated moderate to severe disc space narrowing indicative of some degenerative changes. There were however no acute signs of fracture or other emergency findings. Because of this, I believe the patient can follow-up with his primary doctor in the next couple days to discuss further imaging and potential orthopedic referral. I will send prescription for a p.o. steroid and muscle relaxer for the patient to take, as well as encouraging to use ibuprofen for added relief. Reasons to return are discussed, including any neurological changes such as visual changes or peripheral neurovascular issues. Patient agrees with plan for discharge, and he will follow-up early next week. Patient discharged home. Chart reviewed and patient discussed with midlevel. Agree with assessment and plan. Lab Data Radiology Impressions Cervical Spine X-Ray 10/20/23 14:34 IMPRESSION: Multilevel moderate to severe disc space narrowing and degenerative disc calcification throughout largely the mid to lower cervical spine. Discharge Plan Discharge Patient Disposition: Home Clinical Impression: Degenerative disc disease, cervical Neck strain Qualifiers: Encounter type: initial encounter Qualified Code(s): S16.1XXA - Strain of muscle, fascia and tendon at neck level, initial encounter Condition: Stable Prescriptions: New prednisone 20 mg tablet 60 mg PO ONCE 5 Days Qty: 15 0RF cyclobenzaprine 10 mg tablet 10 mg PO TID PRN (Reason: muscle spasm) Qty: 30 0RF No Action Tresiba U-100 Insulin 100 unit/mL solution 40 unit SUBCUT DAILY fenofibrate nanocrystallized 145 mg tablet 145 mg PO DAILY timolol 0.5 % drops 1 drp ophthalmic (eye) Q12H Rx Instructions: 1 DROP EACH EYE EVERY 12 HOURS Lumigan 0.01 % drops 1 drp ophthalmic (eye) .HS Rx Instructions: 1 DROP EACH EYE AT NIGHT insulin aspart U-100 [Novolog FlexPen U-100 Insulin] 100 unit/mL (3 mL) insulin pen 22 unit SUBCUT .sliding scale metoprolol tartrate 25 mg tablet 25 mg PO BID Qty: 180 3RF amoxicillin-pot clavulanate 875-125 mg tablet 1 tab PO BID Qty: 20 0RF pregabalin [Lyrica] 75 mg capsule 75 mg PO BID Qty: 20 0RF lidocaine 5 % gel See Rx Instructions .ROUTE .COMPLEX Qty: 30 2RF Rx Instructions: apply to affected painful area up to qid; Paxlovid 150 mg x 2- 100 mg tablet See Rx Instructions PO .COMPLEX Qty: 30 0RF Rx Instructions: take TWO 150 mg tablets of nirmatrelvir with ONE 100 mg tablet of ritonavir twice daily for 5 days PO sildenafil 100 mg tablet 50 - 100 mg PO DAILY PRN (Reason: sexual activity) Qty: 30 5RF Rx Instructions: administer 30 minutes to 4 hours before activity atorvastatin 80 mg tablet See Rx Instructions .ROUTE .COMPLEX Qty: 90 3RF Dose Instruction: TAKE 1 TABLET BY MOUTH EVERY DAY AT NIGHT Rx Instructions: TAKE 1 TABLET BY MOUTH EVERY DAY AT NIGHT trazodone 100 mg tablet See Rx Instructions .ROUTE .COMPLEX Qty: 90 3RF Dose Instruction: TAKE 1 TABLET BY MOUTH EVERYDAY AT BEDTIME Rx Instructions: TAKE 1 TABLET BY MOUTH EVERYDAY AT BEDTIME venlafaxine 150 mg capsule,extended release 24hr See Rx Instructions .ROUTE .COMPLEX Qty: 90 3RF Dose Instruction: TAKE 1 CAPSULE BY MOUTH EVERY DAY Rx Instructions: TAKE 1 CAPSULE BY MOUTH EVERY DAY lisinopril 10 mg tablet See Rx Instructions .ROUTE .COMPLEX Qty: 180 3RF Dose Instruction: TAKE 1-2 TABLETS BY MOUTH DAILY FOR BLOOD PRESSURE Rx Instructions: TAKE 1-2 TABLETS BY MOUTH DAILY FOR BLOOD PRESSURE hydrocodone-acetaminophen 5-325 mg tablet 1 tab PO Q6H PRN (Reason: pain (scale score 7-10)) Qty: 10 0RF Discharge Orders: Discharge ED (Routine); Ordered 10/20/23 Ordered By: Carlos No Referrals: Jaylan Montero DO [Primary Care Provider] - Discharge Diet: Usual diet Discharge Activity: Increase activity as tolerated Patient Instructions: Cervical Strain (ED), Degenerative Disc Disease (ED) Activity Restrictions/Additional Instructions: Follow-up with your primary care provider early next week for further evaluation and discuss any necessary imaging. Take prednisone and cyclobenzaprine as prescribed. Take ibuprofen as needed. Please return if you develop any new neurological symptoms including visual changes or weakness/numbness in your arms or legs. Coding Level of Care Code ED [employer] for [employer]
[2023-10-20] MEDS: ketorolac 60 mg/2 mL INJ IM (15:13)
[2023-10-20] MEDS: dexamethasone 10 mg/mL INJ 8 MG IM (15:16)
[2023-10-20] MEDS: orphenadrine 30 mg/mL Inj 2 mL 60 MG IM (15:17)
== END 2023-10-20 16:40 | disposition home or self-care (01) ==
PROVIDERS: Emergency Provider Physician Assistant; PCP Family Medicine
DX: M50.30 Other cervical disc degeneration, unspecified cervical region (principal); S16.1XXA Strain of muscle, fascia and tendon at neck level, initial encounter; Z79.4 Long term (current) use of insulin; I10 Essential (primary) hypertension; E78.5 Hyperlipidemia, unspecified; E11.9 Type 2 diabetes mellitus without complications; X58.XXXA Exposure to other specified factors, initial encounter
CPT/HCPCS: 72040; 96372; 99284; J1100; J1885; J2360

== ENCOUNTER 2023-10-24 16:53 | Outpatient (CLI) | payer MEDICARE, OTHER, SELFPAY ==
--- NOTE | 2023-10-24 16:58 | CT_ITS ---
WS: [id number] CT CERVICAL SPINE HISTORY: M50.30 - Other cervical disc degeneration, unspecified ce... TECHNIQUE: Contiguous 2.0 mm axial imaging performed through the entire cervical spine. Sagittal and coronal reformats also performed. All CT scans at [facility] use at least one of these dose o ptimization techniques: automated exposure control; mA and/or kV adjustment per patient size (include s targeted exams where dose is matched to clinical indication); or iterative reconstruction. DLP: 371.77 mGy.cm COMPARISON: None available. C4 anterolisthesis by 2 mm. Disc spaces are narrowed and desiccated, most significant at C5-6 and C6- 7. Mild anterior wedging of C7. Facet joints are normally aligned. Mild bilateral facet joint arthrit is. Craniocervical junction is normal. Lateral masses of C1 and C2 are aligned. C2-C3: Facet joint arthritis. No stenosis. C3-C4: Partially calcified central disc with mild bilateral foraminal stenosis. Mild central and bila teral foraminal stenosis. C4-C5: Marked osteophytic ridging with severe RIGHT and mild LEFT facet joint arthritis. Small osteop hytes encroach upon the ventral thecal sac. Severe RIGHT foraminal stenosis and mild LEFT foraminal s tenosis. C5-C6: Marked osteophytic ridging with mild bilateral facet arthritis. Disc and osteophyte encroachme nt upon the ventral canal. Mild central with moderate bilateral foraminal stenosis. C6-C7: Diffuse osteophytic ridging with facet joint arthritis. Osteophyte encroach upon the central c anal and foramina. Moderate central with moderate to severe bilateral foraminal stenosis. C7-T1: Mild osteophytic ridging and facet arthritis. Small amount of plaque in the cervical carotid arteries. IMPRESSION: 1. No acute cervical spine fracture. 2. 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 3. C4-5: Severe RIGHT foraminal and mild LEFT foraminal stenosis predominant due to osteophytic ridg ing. 4. C5-6: Mild central and bilateral foraminal stenosis. 5. C6-7: Moderate central with moderate to severe bilateral foraminal stenosis predominantly due to facet and osteophyte disease. 6. C3-4: Mild central and bilateral foraminal stenosis with a central small disc protrusion.
== END 2023-10-24 16:54 | disposition home or self-care (01) ==
LOC: RAD 16:53
PROVIDERS: PCP Family Medicine; Visit Provider Family Medicine
DX: M50.30 Other cervical disc degeneration, unspecified cervical region (principal); M47.812 Spondylosis without myelopathy or radiculopathy, cervical region; M48.02 Spinal stenosis, cervical region; M50.223 Other cervical disc displacement at C6-C7 level; M25.78 Osteophyte, vertebrae
CPT/HCPCS: 72125

== ENCOUNTER → 2023-10-30 13:20 | Outpatient (BNVA) | payer MEDICARE, OTHER, SELFPAY | PROVIDERS: PCP Family Medicine; Visit Provider Orthopaedic Surgery | DX: M54.2 Cervicalgia (principal); M47.812 Spondylosis without myelopathy or radiculopathy, cervical region | CPT/HCPCS: 72040; 99204 ==

== ENCOUNTER 2023-10-31 17:33 | Emergency (ER) | payer MEDICARE, OTHER, SELFPAY ==
--- NOTE | 2023-10-31 17:38 | XRR_ITS ---
PROCEDURE INFORMATION: Exam: XR Abdomen Exam date and time: 10/31/2023 7:17 PM Age: 73 years old Clinical indication: Constipation; Abdominal pain; Additional info: Constipation, abd pain TECHNIQUE: Imaging protocol: Radiologic exam of the abdomen. Views: Frontal supine view of the abdomen. 1 View. COMPARISON: CT abdomen pelvis w con* [id number] 11/25/2020 8:52 PM FINDINGS: Gastrointestinal tract: Nonobstructive bowel gas pattern. No evidence of free air or pneumatosis. Moderate stool burden. Bones/joints: No evidence of acute osseous abnormality. Lumbosacral fusion hardware noted. XR/XR abdomen 1V* [id number] IMPRESSION: 1. Nonobstructive bowel gas pattern.
[2023-10-31 17:47] VITALS: BP 131/83; PULSE 116; RESP 20; TEMP 36.6; O2SAT 95
[2023-10-31 19:41] VITALS: BP 141/87; PULSE 115; RESP 18; O2SAT 93
--- NOTE | 2023-10-31 19:55 | W.ED.ABDPA2 ---
HPI - Abdominal Pain General: Chief Complaint: Abdominal Pain Stated Complaint: no bowel movement in 5 days, abd pain Time Seen by Provider: 10/31/23 19:35 History of Present Illness: Patient presents to the ER with complaints of abdominal pain and constipation. Patient is been on opioids for the last couple weeks dealing with his neck pain is caused him to have severe constipated. Patient states been least 5 days since he had a normal bowel movement and now is causing him pain. Patient denies any nausea or vomiting at this time. Patient tried a what sounds like a [id number]-bespryq mineral oil enema at home but it did not produce any results. Review of Systems General: Reports: 10 or more systems reviewed and unremarkable except in HPI and below PFSH ED PFSH: Medical History HTN (hypertension) Hyperlipidemia Diabetes mellitus Hx of diverticulitis of colon Surgical History History of back surgery S/P wrist surgery S/P shoulder surgery S/P hernia surgery History of elbow surgery S/P eye surgery Hx of transurethral resection of prostate Family History Mother , IN HER EARLY 70'S CAD (coronary artery disease) Father , AT AGE 74 LUNG Cancer Social History Smoking and tobacco/nicotine status: never used tobacco/nicotine Alcohol intake: never Marital status: Current occupational status: retired Physical Exam Const: COMMON NORMALS: no acute distress, average body habitus, patient oriented x3, no limitations, healthy appearing, alert and well nourished HENMT: COMMON NORMALS: normocephalic, atraumatic, hearing grossly normal bilaterally, external ears normal, Normal external nose present, moist oral mucous membranes and oropharynx normal HEAD & SCALP: normocephalic and atraumatic NOSE: Normal external nose present EXTERNAL EAR: Yes external ears normal Neck/C-Spine: COMMON NORMALS: no JVD Chest: COMMONS NORMALS: normal inspection of the chest and normal palpation of entire chest wall Resp: COMMON NORMALS: normal respiratory effort, No retractions, No use of accessory muscles and clear to auscultation bilaterally AUSCULTATION: clear to auscultation bilaterally Cardio: COMMON NORMALS: no JVD, regular rate, regular rhythm, S1 normal heart sound present, S2 normal heart sound present, No gallops present (Cardio), No clicks present (Cardio), No murmurs present (Cardio) and No rub (Cardio) RATE: regular rate RHYTHM: regular rhythm HEART SOUNDS: S1 normal heart sound present and S2 normal heart sound present GI: COMMON NORMALS: Normal to inspection, nondistended, normoactive bowel sounds present, Soft to palpation, No hepatosplenomegaly present and no masses; negative for non-tender (Mildly diffusely tender) PALPATION: Yes Soft to palpation and Yes No hepatosplenomegaly present Neuro: COMMON NORMALS: patient oriented x3 SENSORIUM/ORIENTATION: Yes alert Course Vital Signs: Vital signs: Vital Signs Temperature 98 F 10/31/23 17:47 Pulse Rate 115 H 10/31/23 19:41 Respiratory Rate 18 10/31/23 19:41 Blood Pressure 141/87 10/31/23 19:41 Pulse Oximetry 93 10/31/23 19:41 Oxygen Delivery Me thod Room Air 10/31/23 17:47 MDM - Abdominal Pain Medical Decision Making Patient noticed abdominal x-ray showed nonobstructive bowel gas pattern but with obvious stool in his rectum. Patient was given soapsuds enema in ER and had good results. Patient be discharged home Differential Diagnosis Likely abdominal pain and constipation; Unlikely acute appendicitis, calculus of kidney, diverticulitis, endometriosis, gastroenteritis, pancreatitis or small bowel obstruction Medical Records I reviewed the patient's medical records. Lab Data I reviewed the patient's lab results. Labs/Radiology: Radiology Impressions Abdomen X-Ray 10/31/23 17:38 IMPRESSION: 1. Nonobstructive bowel gas pattern. All radiology interpretation(s) finalized by discharge Discharge Plan Discharge Patient Disposition: Home Clinical Impression: Constipation Qualifiers: Constipation type: drug induced constipation Qualified Code(s): K59.03 - Drug induced constipation Condition: Stable Prescriptions: No Action Tresiba U-100 Insulin 100 unit/mL solution 40 unit SUBCUT DAILY fenofibrate nanocrystallized 145 mg tablet 145 mg PO DAILY timolol 0.5 % drops 1 drp ophthalmic (eye) Q12H Rx Instructions: 1 DROP EACH EYE EVERY 12 HOURS Lumigan 0.01 % drops 1 drp ophthalmic (eye) .HS Rx Instructions: 1 DROP EACH EYE AT NIGHT insulin aspart U-100 [Novolog FlexPen U-100 Insulin] 100 unit/mL (3 mL) insulin pen 22 unit SUBCUT .sliding scale metoprolol tartrate 25 mg tablet 25 mg PO BID Qty: 180 3RF amoxicillin-pot clavulanate 875-125 mg tablet 1 tab PO BID Qty: 20 0RF pregabalin [Lyrica] 75 mg capsule 75 mg PO BID Qty: 20 0RF lidocaine 5 % gel See Rx Instructions .ROUTE .COMPLEX Qty: 30 2RF Rx Instructions: apply to affected painful area up to qid; Paxlovid 150 mg x 2- 100 mg tablet See Rx Instructions PO .COMPLEX Qty: 30 0RF Rx Instructions: take TWO 150 mg tablets of nirmatrelvir with ONE 100 mg tablet of ritonavir twice daily for 5 days PO sildenafil 100 mg tablet 50 - 100 mg PO DAILY PRN (Reason: sexual activity) Qty: 30 5RF Rx Instructions: administer 30 minutes to 4 hours before activity atorvastatin 80 mg tablet See Rx Instructions .ROUTE .COMPLEX Qty: 90 3RF Dose Instruction: TAKE 1 TABLET BY MOUTH EVERY DAY AT NIGHT Rx Instructions: TAKE 1 TABLET BY MOUTH EVERY DAY AT NIGHT trazodone 100 mg tablet See Rx Instructions .ROUTE .COMPLEX Qty: 90 3RF Dose Instruction: TAKE 1 TABLET BY MOUTH EVERYDAY AT BEDTIME Rx Instructions: TAKE 1 TABLET BY MOUTH EVERYDAY AT BEDTIME venlafaxine 150 mg capsule,extended release 24hr See Rx Instructions .ROUTE .COMPLEX Qty: 90 3RF Dose Instruction: TAKE 1 CAPSULE BY MOUTH EVERY DAY Rx Instructions: TAKE 1 CAPSULE BY MOUTH EVERY DAY lisinopril 10 mg tablet See Rx Instructions .ROUTE .COMPLEX Qty: 180 3RF Dose Instruction: TAKE 1-2 TABLETS BY MOUTH DAILY FOR BLOOD PRESSURE Rx Instructions: TAKE 1-2 TABLETS BY MOUTH DAILY FOR BLOOD PRESSURE cyclobenzaprine 10 mg tablet 10 mg PO TID PRN (Reason: muscle spasm, neck pain) Qty: 45 0RF hydrocodone-acetaminophen 5-325 mg tablet 1 tab PO Q6H PRN (Reason: pain, severe) 7 Days Qty: 28 0RF hydrocodone-acetaminophen 10-325 mg tablet 1 tab PO Q4H PRN (Reason: pain) 7 Days Qty: 30 0RF cyclobenzaprine 10 mg tablet 10 mg PO TID PRN (Reason: muscle spasm) Qty: 30 0RF Discharge Orders: Discharge ED (Routine); Ordered 10/31/23 Ordered By: Lorne Horton Referrals: Jaylan Montero DO [Primary Care Provider] - 1 week Patient Instructions: Constipation - Adult, High Fiber Diet (ED), Fleet Enema (ED) Activity Restrictions/Additional Instructions: Please use uusa-can-rrzciln stool softeners regularly and please increase your fiber content as these both may help. If possible you may also try using less narcotic pain medicine. Please follow-up with your family doctor within the next 7 to 10 days for further evaluation treatment as needed. Coding Level of Care Code ED Cavity Pump Operator for Elo Harris
== END 2023-10-31 20:56 | disposition home or self-care (01) ==
PROVIDERS: Emergency Provider Emergency Medicine; PCP Family Medicine
DX: K59.03 Drug induced constipation (principal); Z79.4 Long term (current) use of insulin; I10 Essential (primary) hypertension; E78.5 Hyperlipidemia, unspecified; E11.9 Type 2 diabetes mellitus without complications
CPT/HCPCS: 74018; 99283

== ENCOUNTER → 2023-11-08 09:52 | Outpatient (BNVA) | payer MEDICARE, OTHER, SELFPAY | PROVIDERS: PCP Family Medicine; Visit Provider Anesthesiology Pain Medicine | DX: K59.03 Drug induced constipation (principal); T40.2X5A Adverse effect of other opioids, initial encounter; G62.9 Polyneuropathy, unspecified; M47.812 Spondylosis without myelopathy or radiculopathy, cervical region; X58.XXXA Exposure to other specified factors, initial encounter | CPT/HCPCS: 99205 ==

== ENCOUNTER 2023-11-16 16:17 | Outpatient (CLI) | payer MEDICARE, OTHER, SELFPAY ==
--- NOTE | 2023-11-16 16:45 | MR_ITS ---
WS: [id number] MRI CERVICAL SPINE NONCONTRAST HISTORY: neck pain COMPARISON: C-spine CT 10/24/2023, radiographs 10/30/2023 Technique: Multiplanar, multisequence noncontrast imaging of the cervical spine. Mild curvature cervical spine. Slight straightening. Disc spaces are mildly narrowed and desiccated. No significant degenerative changes are at C5-6 and C6-7. Osteophytosis diffuse but most significant at C5-C7. Signal within the cervical cord is normal. Visualized posterior fossa is unremarkable. Craniocervical junction, C1 and C2 relationship, odontoid process and soft tissues are normal. C2-C3: Moderate disc osteophyte complexes encroaching upon the ventral thecal sac and the foramina. L EFT proximal foraminal disc protrusion is no significant with mild deformity of the LEFT lateral thec al sac and LEFT foraminal stenosis. There is additional facet and ligamentum flavum hypertrophy encro aching posteriorly. Moderate central and RIGHT foraminal stenosis with severe LEFT foraminal stenosis . Stenosis at this level is more significant than identified on the CT. C3-C4: Diffuse annular disc bulging with bilateral foraminal disc osteophyte complexes and facet arth ritis. Mild central and foraminal stenosis. Slightly greater foraminal stenosis on the LEFT. C4-C5: Osteophytic ridging with a central disc protrusion and facet arthritis. Mild central with mode rate bilateral foraminal stenosis. C5-C6: Diffuse annular disc bulging with osteophytic ridging and facet arthritis. Near contact on the ventral cord by the disc osteophyte centrally. Mild central with moderate bilateral foraminal stenos is. Slightly greater stenosis on the LEFT. C6-C7: Diffuse osteophytic ridging with annular disc bulging. Moderate central with severe bilateral foraminal stenosis. C7-T1: Mild osteophytic ridging and disc bulging and facet arthritis. Mild central stenosis with mode rate foraminal stenosis. Small central disc protrusions at T1-2 and T2-3. Paraspinal soft tissue are normal. IMPRESSION: 1. Severe mild multilevel advanced degenerative disc disease, spondylosis and stenoses. 2. C2-3: Moderate central and RIGHT foraminal stenosis with severe LEFT foraminal stenosis. Stenosis due to combination of disc and osteophyte disease. This stenosis and encroachment at this level appe ars more significant as compared to the recent CT. 3. C3-4: Mild central and bilateral foraminal stenosis, LEFT greater than RIGHT. 4. C4-5 and C5-6: Moderate central with bilateral moderate foraminal stenosis. 5. C6-7: Moderate central with severe bilateral foraminal stenosis. 6. C7-T1: Mild central with moderate foraminal stenosis.
== END 2023-11-16 16:18 | disposition home or self-care (01) ==
LOC: RAD 16:17
PROVIDERS: PCP Family Medicine; Visit Provider Orthopaedic Surgery
DX: M47.812 Spondylosis without myelopathy or radiculopathy, cervical region (principal); M48.02 Spinal stenosis, cervical region
CPT/HCPCS: 72141

== ENCOUNTER → 2023-11-19 10:01 | Outpatient (BNVA) | payer MEDICARE, OTHER, SELFPAY | PROVIDERS: PCP Family Medicine; Visit Provider Anesthesiology Pain Medicine | DX: R42 Dizziness and giddiness (principal); M54.9 Dorsalgia, unspecified; G62.9 Polyneuropathy, unspecified; M47.812 Spondylosis without myelopathy or radiculopathy, cervical region; M48.02 Spinal stenosis, cervical region | CPT/HCPCS: 99215 ==

== ENCOUNTER → 2024-03-07 10:45 | Outpatient (BNVA) | payer MEDICARE, OTHER, SELFPAY | PROVIDERS: PCP Family Medicine; Referring Provider Anesthesiology Pain Medicine; Visit Provider Specialist | DX: M48.02 Spinal stenosis, cervical region; H81.13 Benign paroxysmal vertigo, bilateral; M54.12 Radiculopathy, cervical region | CPT/HCPCS: 99205 ==

== ENCOUNTER 2024-03-17 08:46 | Outpatient (CLI) | payer MEDICARE, OTHER, SELFPAY ==
[2024-03-17 09:44] LABS: Estmated Average Glucose 146; Hemoglobin A1C 6.7 % (4.0-6.0)
== END 2024-03-17 08:47 | disposition home or self-care (01) ==
LOC: LAB 08:48
PROVIDERS: PCP Family Medicine; Visit Provider Nurse Practitioner
DX: E11.9 Type 2 diabetes mellitus without complications (principal); I10 Essential (primary) hypertension; E78.2 Mixed hyperlipidemia
CPT/HCPCS: 36415; 83036

== ENCOUNTER 2024-06-25 09:26 | Emergency (ER) | payer MEDICARE, OTHER, SELFPAY ==
[2024-06-25 09:48] VITALS: BP 111/80; PULSE 106; RESP 17; TEMP 36.7; O2SAT 93; BMI 31.1
--- NOTE | 2024-06-25 10:04 | CT_ITS ---
WS: [id number] CT ABDOMEN PELVIS TECHNIQUE: Contrast-enhanced CT of the abdomen and pelvis with coronal and sagittal reformatted image s. CLINICAL INFORMATION: abd pain COMPARISON: 2020 DLP: 940.[address] scans at [facility] use at least one of these dose optimization techniques: automated e xposure control; mA and/or kV adjustment per patient size (includes targeted exams where dose is matc hed to clinical indication); or iterative reconstruction. FINDINGS: Diffuse thickening with inflammatory stranding and edema about the sigmoid colon compatible with acut e diverticulitis. No drainable abscess or fluid collection. Small amount of surrounding induration sm all trace of surrounding fluid. Recommend follow-up to resolution. Normal liver normal spleen. Normal GE junction. Normal pancreatic parenchymal enhancement. Celiac and SMA are patent. Adrenal glands are normal. LEFT renal cortical atrophy. Small bilateral renal cysts. No hydronephrosis. Enlarged prostate. Recommend correlation PSA. Stable postoperative changes lumbar spine. Chronic appearing nondisplaced fracture of the RIGHT interconnecting olga CT/CT abdomen pelvis w con* [id number] IMPRESSION: Acute sigmoid diverticulitis. No drainable abscess or fluid collection. Recomme nd follow-up to resolution. Notified Lowell Arriaza MD at 06/25/2024 11:23 AM.
--- NOTE | 2024-06-25 10:10 | ED_ITS ---
HPI - Abdominal Pain 2 General: Chief Complaint: Abdominal Pain Stated Complaint: abd pain Time Seen by Provider: 06/25/24 09:48 Source: patient Mode of arrival: ambulatory Limitations: no limitations History of Present Illness: 74-year-old male states been having left lower quadrant pain since last night states pain sharp in nature rates it an 8 out of 10 he thought it could be constipation and states he had a bowel movement still has pain he said a history of diverticulitis denies any fevers denies any vomiting Associated Symptoms: Denies chills, diarrhea, fever(s), nausea and vomiting Related Data Home Medications Medication Instructions Recorded Confirmed insulin degludec 100 unit/mL 40 unit SUBCUT QAM 12/13/20 06/25/24 subcutaneous solution (Tresiba U-100 Insulin) insulin aspart U-100 100 unit/mL 22 - 28 unit SUBCUT .TID PER 03/28/22 06/25/24 (3 mL) subcutaneous pen (Novolog SLIDING SCA FlexPen U-100 Insulin aspart) atorvastatin 80 mg tablet 80 mg PO QPM 06/25/24 06/25/24 dorzolamide 22.3 mg-timolol 6.8 1 drp ophthalmic (eye) BID 06/25/24 06/25/24 mg/mL eye drops fenofibrate micronized 134 mg 134 mg PO DAILY 06/25/24 06/25/24 capsule lidocaine 5 % topical gel See Rx Instructions .Route 06/25/24 06/25/24 .COMPLEX PRN Pain lisinopril 10 mg tablet 10 - 20 mg PO DAILY blood pressure 06/25/24 06/25/24 trazodone 100 mg tablet 100 mg PO BEDTIME 06/25/24 06/25/24 venlafaxine 150 mg 150 mg PO DAILY 06/25/24 06/25/24 capsule,extended release 24 hr Previous Rx's Medication Instructions Recorded sildenafil 100 mg tablet 50 - 100 mg (0.5 - 1 x 100 mg) PO 10/26/22 DAILY PRN sexual activity #30 tabs metoprolol tartrate 25 mg tablet 25 mg PO BID #180 tabs 08/01/23 pregabalin 75 mg capsule (Lyrica) 75 mg PO BID neuropathy pain #60 12/25/23 caps hydrocodone 10 mg-acetaminophen 1 tab PO Q4H PRN pain 15 days #90 02/03/24 325 mg tablet tabs amoxicillin 875 mg-potassium 1 tab PO BID respiratory infection 06/23/24 clavulanate 125 mg tablet #20 tabs ciprofloxacin HCl 500 mg tablet 500 mg PO BID #14 tabs 06/25/24 (Cipro) hydrocodone 5 mg-acetaminophen 325 1 tab PO Q6H PRN pain #14 tabs 06/25/24 mg tablet metronidazole 500 mg tablet 500 mg PO Q8H 7 days #21 tabs 06/25/24 ondansetron 4 mg disintegrating 4 mg PO Q6H PRN nausea and 06/25/24 tablet vomiting #14 tabs Allergies Allergy/AdvReac Type Severity Reaction Status Date / Time No Known Allergies Allergy Verified 03/07/24 10:51 Review of Systems 2 Const: Denies: fever(s), chills, body aches or change in appetite ENMT: Denies: throat pain or dental pain Card: Denies: chest pain Resp: Denies: dyspnea GI: Reports: abdominal pain; Denies: nausea, vomiting or diarrhea Musc: Denies: neck pain or back pain Skin/Breast: Denies: rash Neuro: Denies: headache(s) PFSH ED 2 PFSH: Medical History HTN (hypertension) Hyperlipidemia Diabetes mellitus Hx of diverticulitis of colon Surgical History History of back surgery S/P wrist surgery S/P shoulder surgery S/P hernia surgery History of elbow surgery S/P eye surgery Hx of transurethral resection of prostate Family History Mother , IN HER EARLY 70'S CAD (coronary artery disease) Father , AT AGE 74 LUNG Cancer Social History Smoking and tobacco/nicotine status: never used tobacco/nicotine Alcohol intake: never Marital status: Current occupational status: retired Physical Exam 2 Const: COMMON NORMALS: no acute distress, patient oriented x3 and healthy appearing HENMT: COMMON NORMALS: normocephalic and atraumatic HEAD & SCALP: n ormocephalic and atraumatic Neck/C-Spine: COMMON NORMALS: full ROM and supple Chest: COMMONS NORMALS: normal inspection of the chest Resp: COMMON NORMALS: normal respiratory effort, No retractions, No use of accessory muscles and clear to auscultation bilaterally AUSCULTATION: clear to auscultation bilaterally Cardio: COMMON NORMALS: regular rate, regular rhythm and No murmurs present (Cardio) RATE: regular rate RHYTHM: regular rhythm GI: COMMON NORMALS: Normal to inspection, nondistended, normoactive bowel sounds present, Soft to palpation and no masses PALPATION: Yes Soft to palpation and Yes Tenderness to palpation present (GI) Details: LLQ Extremity: COMMON NORMALS: normal to inspection and full ROM Neuro: COMMON NORMALS: patient oriented x3, moves all extremities and no focal motor deficits Psych: COMMON NORMALS: mental status grossly normal, Normal thought process present and cooperative THOUGHT PROCESS: Normal thought process present Skin: COMMON NORMALS: no rashes or lesions noted and no wounds GENERAL SKIN EXAM: no rashes or lesions noted Course 2 Vital Signs: Vital signs: Vital Signs Temperature 98.1 F 06/25/24 09:48 Pulse Rate 103 H 06/25/24 11:48 Respiratory Rate 18 06/25/24 11:48 Blood Pressure 125/69 06/25/24 11:48 Pulse Oximetry 91 06/25/24 11:48 Oxygen Delivery Me thod Room Air 06/25/24 11:48 MDM - Abdominal Pain Medical Decision Making Patient presents here with abdominal pain he does have diverticulitis I did discuss this with the my had shared decision making did offer him admission he states he wants to try oral antibiotics at home first its worked in the past we will place him on Cipro Flagyl we will get him follow-up with surgery as well informed he has any worsening symptoms he is to return he understands agrees to plan. Medical Records I reviewed the patient's medical records. Lab Data I reviewed the patient's lab results. 06/25/24 10:05 06/25/24 10:05 Labs/Radiology: Radiology Impressions Abdomen/Pelvis CT 06/25/24 10:04 IMPRESSION: Acute sigmoid diverticulitis. No drainable abscess or fluid collection. Recommend follow-up to resolution. Notified Lowell Arriaza MD at 06/25/2024 11:23 AM. Laboratory Results WBC 10.93 10^3/uL (3.29-11.43) 06/25/24 10:05 RBC 4.51 10^6/uL (3.85-5.65) 06/25/24 10:05 Hgb 14.20 g/dL (11.27-16.99) 06/25/24 10:05 Hct 42.8 % (37-53) 06/25/24 10:05 MCV 94.9 fl (82-101) 06/25/24 10:05 MCH 31.5 pg (27-33) 06/25/24 10:05 MCHC 33.2 g/dL (30-55) 06/25/24 10:05 RDW 12.6 % (12.1-15.1) 06/25/24 10:05 Plt Count 231 10^3/cmm (157-399) 06/25/24 10:05 MPV 9.4 fL (7.4-10.4) 06/25/24 10:05 Neut % (Auto) 73.3 % 06/25/24 10:05 Lymph % (Auto) 16.2 % 06/25/24 10:05 [place] % (Auto) 9.1 % 06/25/24 10:05 Eos % (Auto) 0.7 % 06/25/24 10:05 Baso % (Auto) 0.4 % 06/25/24 10:05 Neut # (Auto) 8.02 10^3/uL (1.8-7.7) H 06/25/24 10:05 Lymph # (Auto) 1.8 10^3/uL (0.8-4.8) 06/25/24 10:05 [place] # (Auto) 1.0 10^3/uL (0.2-0.9) H 06/25/24 10:05 Eos # (Auto) 0.1 10^3/uL (0.0-0.8) 06/25/24 10:05 Baso # (Auto) 0.0 10^3/uL (0.0-0.1) 06/25/24 10:05 Nucleated RBC % (auto) 0 % 06/25/24 10:05 Nucleated RBCs # 0.0 /100WBC 06/25/24 10:05 Sodium 136 mmol/L (136-145) 06/25/24 10:05 Potassium 5.2 mmol/L (3.5-5.1) H 06/25/24 10:05 Chloride 102 mmol/L (98-107) 06/25/24 10:05 Carbon Dioxide 25 mmol/L (22-29) 06/25/24 10:05 Anion Gap 14.2 (5-19) 06/25/24 10:05 BUN 27 mg/dL (8-23) H 06/25/24 10:05 Creatinine 1.2 mg/dL (0.7-1.2) 06/25/24 10:05 GFR Calculation Not Reportable 06/25/24 10:05 Glucose 189 mg/dL (65-115) H 06/25/24 10:05 Calculated Osmolality 292 mOsm/kg (285-295) 06/25/24 10:05 Calcium 9.6 mg/dL (8.5-10.5) 06/25/24 10:05 Total Bilirubin 0.7 mg/dL (0.15-1.2) 06/25/24 10:05 AST 15 U/L (0-40) 06/25/24 10:05 ALT 16 U/L (0-41) 06/25/24 10:05 Alkaline Phosphatase 43 U/L (40-130) 06/25/24 10:05 Total Protein 6.4 g/dL (6.6-8.7) L 06/25/24 10:05 Albumin 4.2 g/dL (3.5-5.2) 06/25/24 10:05 Globulin 2.2 g/dL (1.3-4.6) 06/25/24 10:05 Lipase 31 U/L (13-60) 06/25/24 10:05 Urine Color Yellow (Yellow) 06/25/24 10:08 Urine Appearance Clear (CLEAR) 06/25/24 10:08 Urine pH 5.5 (5-7) 06/25/24 10:08 Ur Specific [place] 1.019 (1.005-1.030) 06/25/24 10:08 Urine Protein Negative (Negative) 06/25/24 10:08 Urine Glucose (UA) Negative (Normal) 06/25/24 10:08 Urine Ketones Negative (Negative) 06/25/24 10:08 Urine Blood Negative (Negative) 06/25/24 10:08 Urine Nitrate Negative (Negative) 06/25/24 10:08 Urine Bilirubin Negative (Negative) 06/25/24 10:08 Urine Urobilinogen 1.0 mg/dL (Negative) 06/25/24 10:08 Ur Leukocyte Esterase Negative (Negative) 06/25/24 10:08 Urine RBC 0-2 /hpf (0-2) 06/25/24 10:08 Urine WBC 0-5 /hpf (0-5) 06/25/24 10:08 Ur Squamous Epith Cells 0-5 /hpf (0-5) 06/25/24 10:08 Amorphous Sediment Not Reportable 06/25/24 10:08 Urine Bacteria None seen /hpf (NONE) 06/25/24 10:08 Hyaline Casts 0.40 /lpf 06/25/24 10:08 All radiology interpretation(s) finalized by discharge Discharge Plan Discharge Patient Disposition: Home Clinical Impression: Diverticulitis Condition: Stable Prescriptions: New hydrocodone-acetaminophen 5-325 mg tablet 1 tab PO Q6H PRN (Reason: pain) Qty: 14 0RF metronidazole 500 mg tablet 500 mg PO Q8H 7 Days Qty: 21 0RF ciprofloxacin HCl [Cipro] 500 mg tablet 500 mg PO BID Qty: 14 0RF ondansetron 4 mg tablet,disintegrating 4 mg PO Q6H PRN (Reason: nausea and vomiting) Qty: 14 0RF No Action Tresiba U-100 Insulin 100 unit/mL solution 40 unit SUBCUT QAM insulin aspart U-100 [Novolog FlexPen U-100 Insulin] 100 unit/mL (3 mL) insulin pen 22 - 28 unit SUBCUT .TID PER SLIDING SCA metoprolol tartrate 25 mg tablet 25 mg PO BID Qty: 180 3RF sildenafil 100 mg tablet 50 - 100 mg PO DAILY PRN (Reason: sexual activity) Qty: 30 5RF Rx Instructions: administer 30 minutes to 4 hours before activity pregabalin [Lyrica] 75 mg capsule 75 mg PO BID Qty: 60 3RF hydrocodone-acetaminophen 10-325 mg tablet 1 tab PO Q4H PRN (Reason: pain) 15 Days Qty: 90 0RF amoxicillin-pot clavulanate 875-125 mg tablet 1 tab PO BID Qty: 20 0RF fenofibrate micronized 134 mg capsule 134 mg PO DAILY dorzolamide-timolol 22.3-6.8 mg/mL drops 1 drp ophthalmic (eye) BID atorvastatin 80 mg tablet 80 mg PO QPM venlafaxine 150 mg capsule,extended release 24hr 150 mg PO DAILY trazodone 100 mg tablet 100 mg PO BEDTIME lisinopril 10 mg tablet 10 - 20 mg PO DAILY lidocaine 5 % gel See Rx Instructions .ROUTE .COMPLEX PRN (Reason: Pain) Rx Instructions: Apply to affected painful area up to 4 times daily Discharge Orders: Discharge ED (Routine); Ordered 06/25/24 Ordered By: Lowell Arriaza Referrals: Jaylan Montero DO [Primary Care Provider] - Carlos Whelan MD [Physician] - 4-7 days Discharge Diet: Advance as tolerated Discharge Activity: Resume usual activity Patient Instructions: Diverticulitis (ED), Opioid Safety Coding Level of Care Code ED Marketing Finance Specialist for Elo Harris
[2024-06-25 10:15] VITALS: BP 111/90; PULSE 106; RESP 18; O2SAT 93
[2024-06-25 10:25] LABS: Bilirubin Urine Negative (Negative); Blood Urine Negative (Negative); Glucose Urine UA Negative (Normal); Ketones Urine Negative (Negative); Leukocyte Esterase Urine Negative (Negative); Nitrate Urine Negative (Negative); Protein Urine Negative (Negative); Specific Gravity, Urine 1.019 (1.005-1.030); Urine Appearance Clear (CLEAR); Urine Color Yellow (Yellow); pH Urine 5.5 (5-7)
[2024-06-25 10:28] LABS: Basophils % 0.4 %; Eosinophils # 0.1 10^3/uL (0.0-0.8); Eosinophils % 0.7 %; Hematocrit 42.8 % (37-53); Lymphocytes # 1.8 10^3/uL (0.8-4.8); Lymphocytes % 16.2 %; Mean Corpuscular HGB Conc 33.2 g/dL (30-55); Mean Corpuscular Hemoglobin 31.5 pg (27-33); Mean Corpuscular Volume 94.9 fl (82-101); Mean Platelet Volume 9.4 fL (7.4-10.4); Monocytes % 9.1 %; Neutrophils # 8.02 10^3/uL (1.8-7.7); Neutrophils % 73.3 %; Nucleated Red Blood Cells % 0 %; Platelet Count 231 10^3/cmm (157-399); Red Blood Count 4.51 10^6/uL (3.85-5.65); Red Cell Distribution Width 12.6 % (12.1-15.1); White Blood Count 10.93 10^3/uL (3.29-11.43)
[2024-06-25 10:29] LABS: Add Urine Microscopic? YES; Bacteria Urine None Seen /hpf; RBC Urine 0-2 /hpf (0-2); Squamous Epithelial Cell Urine 0-5 /hpf (0-5); WBC Urine 0-5 /hpf (0-5)
[2024-06-25] MEDS: ondansetron 2 mg/ML SDV 2 mL 4 MG IVP (10:37)
[2024-06-25] MEDS: morphine 4 mg/mL SDV 1 mL IVP (10:37)
[2024-06-25 10:38] VITALS: BP 111/80; PULSE 105; O2SAT 98
[2024-06-25 10:41] LABS: Alanine Aminotransferase 16 U/L (0-41); Albumin Level 4.2 g/dL (3.5-5.2); Alkaline Phosphatase 43 U/L (40-130); Anion Gap 14.2 (5-19); Aspartate Amino Transferase 15 U/L (0-40); Blood Urea Nitrogen 27 mg/dL (8-23); Calcium 9.6 mg/dL (8.5-10.5); Carbon Dioxide 25 mmol/L (22-29); Chloride 102 mmol/L (98-107); Creatinine Clr Calc Pharmacy 67.4441; Globulin 2.2 g/dL (1.3-4.6); Glucose 189 mg/dL (65-115); Lipase 31 U/L (13-60); Osmolality Calculated 292 mOsm/kg (285-295); Potassium 5.2 mmol/L (3.5-5.1); Sodium 136 mmol/L (136-145); Total Bilirubin 0.7 mg/dL (0.15-1.2); Total Protein 6.4 g/dL (6.6-8.7)
[2024-06-25] MEDS: iohexol 350 mg/mL 500 mL Btl (per mL) IV (10:56)
[2024-06-25 11:48] VITALS: BP 125/69; PULSE 103; RESP 18; O2SAT 91
[2024-06-25 12:22] VITALS: BP 111/79; PULSE 104; O2SAT 93
--- NOTE | 2024-06-26 07:00 | DCPLANNER ---
messaged gen surg for er f/u
== END 2024-06-25 12:23 | disposition home or self-care (01) ==
PROVIDERS: Emergency Provider Emergency Medicine; PCP Family Medicine
DX: K57.92 Diverticulitis of intestine, part unspecified, without perforation or abscess without bleeding (principal); Z79.4 Long term (current) use of insulin; E11.9 Type 2 diabetes mellitus without complications; I10 Essential (primary) hypertension
CPT/HCPCS: 74177; 80053; 81001; 83690; 85025; 96374; 96375; 99285; J2270; J2405

== ENCOUNTER 2024-10-03 08:08 | Outpatient (CLI) | payer MEDICARE, OTHER, SELFPAY ==
[2024-10-03 09:02] LABS: Estmated Average Glucose 140; Hemoglobin A1C 6.5 % (4.0-6.0)
[2024-10-03 09:03] LABS: Anion Gap 11.3 (5-19); Blood Urea Nitrogen 19 mg/dL (8-23); Calcium 8.6 mg/dL (8.5-10.5); Carbon Dioxide 28 mmol/L (22-29); Chloride 107 mmol/L (98-107); Chol HDL Ratio 3.69 mg/dL (1.0-5.00); Cholesterol 129 mg/dL (0-200); Glucose 94 mg/dL (65-115); HDL Cholesterol 35 mg/dL (60-100); LDL Cholesterol Calculated 76 mg/dL (50-129); LDL HDL Ratio 2.17 RATIO (0.00-3.22); Osmolality Calculated 296 mOsm/kg (285-295); Potassium 4.3 mmol/L (3.5-5.1); Sodium 142 mmol/L (136-145); Triglycerides 89 mg/dL (0-150)
== END 2024-10-03 08:09 | disposition home or self-care (01) ==
LOC: LAB 08:11
PROVIDERS: PCP Family Medicine; Visit Provider Nurse Practitioner
DX: E11.65 Type 2 diabetes mellitus with hyperglycemia (principal); E78.2 Mixed hyperlipidemia; I10 Essential (primary) hypertension
CPT/HCPCS: 36415; 80048; 80061; 83036

== ENCOUNTER 2025-02-24 20:51 | Emergency (ER) | payer MEDICARE, OTHER, SELFPAY ==
[2025-02-24 20:55] VITALS: BP 158/83; PULSE 83; RESP 19; TEMP 36.8; O2SAT 97; BMI 30.6
[2025-02-24 20:58] VITALS: BP 157/70; PULSE 79; RESP 16; O2SAT 91
--- NOTE | 2025-02-24 21:19 | CTR_ITS ---
PROCEDURE INFORMATION: Exam: CT Abdomen And Pelvis With Contrast Exam date and time: 02/24/2025 10:50 PM Age: 75 years old Clinical indication: Abdominal pain; Other: Llq; Prior surgery; Surgery date: 6+ months; Surgery type: Lumbar fusion; Additional info: Llq pain TECHNIQUE: Imaging protocol: Computed tomography of the abdomen and pelvis with contrast. Radiation optimization: All CT scans at this facility use at least one of these dose optimization techniques: automated exposure control; mA and/or kV adjustment per patient size (includes targeted exams where dose is matched to clinical indication); or iterative reconstruction. Contrast material: OMNI 350; Contrast volume: 100 ml; Contrast route: INTRAVENOUS (IV); COMPARISON: CT abdomen pelvis w con* [id number] 06/25/2024 10:54 AM RADIATION DOSE METRICS: Total DLP (mGy-cm): 1071.9 FINDINGS: Heart: Mitral valve calcifications. Liver: Unremarkable. Gallbladder and biliary ducts: No calcified stones. No ductal dilation. Pancreas: Normal. No ductal dilation. Spleen: Unremarkable. Adrenal glands: Unremarkable. Kidneys and ureters: Bilateral simple cortical renal cysts. Stable left lower pole exophytic hyperdense cortical cyst measuring 1.4 x 1.2 cm. No hydronephrosis. Stomach and bowel: Colonic diverticulosis without diverticulitis. Mild-moderate stool burden. No mechanical bowel obstruction. Appendix: No evidence of appendicitis. Intraperitoneal space: No free air. No fluid collection. Vasculature: Unremarkable. No abdominal aortic aneurysm. Lymph nodes: No enlarged lymph nodes. Urinary bladder: Unremarkable as visualized. Reproductive: Unremarkable as visualized. Bones/joints: No acute fracture. Anterior flowing syndesmophytes likely representing DISH. Moderate multilevel spondylosis. L3-S1 posterior fusion with L3-L5 laminectomies. Soft tissues: Chronic nonspecific mild bilateral lower anterior abdominal wall fat stranding. CT/CT abdomen pelvis w con* [id number] IMPRESSION: No acute findings. COMMENTS: Consistent with the [employer]'s Incidental Findings Committee white paper (J Am Liz Radiol 2018): Any incidental renal lesion less than 1 cm or classified as too small to characterize, or any incidental cystic renal lesion characterized as simple-appearing, is likely benign. No follow-up imaging is recommended for these lesions per consensus recommendations based on imaging criteria.
--- NOTE | 2025-02-24 21:20 | ED_ITS ---
HPI - Back Pain/Injury 2 General: Chief Complaint: Back Pain/Injury Stated Complaint: back pain, nausea, fatigue Time Seen by Provider: 02/24/25 21:08 History of Present Illness: Patient comes in with low back pain and abdominal pain. He states they are 2 separate issues. States that he has been having back pain for years but recently has been having worsening pain. States the last couple months has been in his cervical spine. He is seeing his doctor and being treated with lidocaine patches, hydrocodone for breakthrough pain. States that it is not working. States over the last few days he has been having worsening of his chronic low back pain. He describes it as sharp, bilateral, radiating down his legs, worse with movement. Denies fever. Denies perianal numbness, urinary retention, or muscle weakness. On physical exam he has full range of motion including flexion and extension of bilateral hips, bilateral knees, bilateral ankles, bilateral great toes, normal DTRs in bilateral knees. He has tenderness to palpation in his lower back lateral to midline worse on the right with palpable muscle tightness. He also has mild left lower quadrant tenderness to palpation of his abdomen which he states he thinks is diverticulitis starting up. Will check labs, CT abdomen pelvis with IV contrast, treat pain with 30 mg of IV Toradol, 5 mg of p.o. Valium, and 125 mg of IV Solu-Medrol, give IV fluids, and reassess. Associated symptoms: Deny fever(s), nausea or vomiting Related Data Home Medications ?Medication ?Instructions ?Recorded ?Confirmed insulin degludec 100 unit/mL 40 unit SUBCUT QAM 06/25/24 subcutaneous solution (Tresiba U-100 Insulin) insulin aspart U-100 100 unit/mL 22 - 28 unit SUBCUT . TID PER 03/28/22 06/25/24 (3 mL) subcutaneous pen (Novolog SLIDING SCA FlexPen U-100 Insulin aspart) atorvastatin 80 mg tablet 80 mg PO QPM 06/25/24 dorzolamide 22.3 mg-timolol 6.8 1 drp ophthalmic (eye) BID 06/25/24 06/25/24 mg/mL eye drops fenofibrate micronized 134 mg 134 mg PO DAILY 06/25/24 12/30/24 capsule lidocaine 5 % topical gel See Rx Instructions .Route 1 08/25/23 06/25/24 .COMPLEX PRN Pain lisinopril 10 mg tablet 10 - 20 mg PO DAILY blood pr essure 06/25/24 12/30/24 trazodone 100 mg tablet 100 mg PO BEDTIME 06/25/24 0 12/30/24 Previous Rx's ?Medication ?Instructions ?Recorded sildenafil 100 mg tablet 50 - 100 mg (0.5 - 1 x 100 m g) PO 10/26/22 DAILY PRN sexual activity #30 tabs pregabalin 75 mg capsule (Lyrica) 75 mg PO BID neuropa thy pain #60 12/25/23 caps amoxicillin 875 mg-potassium 1 tab PO BID respiratory infection 06/23/24 clavulanate 125 mg tablet #20 tabs ciprofloxacin HCl 500 mg tablet 500 mg PO BID #14 tabs 06/25/24 (Cipro) hydrocodone 5 mg-acetaminophen 325 1 tab PO Q6H PRN pa in #14 tabs 06/25/24 mg tablet ondansetron 4 mg disintegrating 4 mg PO Q6H PRN nausea and 06/25/24 tablet vomiting #14 tabs metoprolol tartrate 25 mg tablet 25 mg PO BID #60 tabs 09/01/24 naloxegol 25 mg tablet 25 mg PO QAM constipation # 30 tabs 09/01/24 venlafaxine 150 mg 150 mg PO DAILY #90 caps capsule,extended release 24 hr prednisone 10 mg tablet See Rx Instructions PO DAILY #45 02/02/25 tabs fentanyl 25 mcg/hr transdermal 1 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 3 0 days #10 ea hydrocodone 10 mg-acetaminophen 1 tab PO Q4H PRN pain 15 days #90 02/13/25 325 mg tablet tabs diazepam 5 mg tablet (Valium) 5 mg PO Q8H PRN muscle s pasm #9 02/24/25 tabs prednisone 20 mg tablet 40 mg (2 x 20 mg) PO DAILY 4 days 02/24/25 #8 tabs Allergies Allergy/AdvReac Type Severity Reaction Status Date / Time No Known Allergies Allergy Verified 02/13/25 09:00 Review of Systems 2 Const: Denies: fever(s) or body aches Eyes: Denies: change in vision or blurry vision ENMT: Denies: throat pain Card: Denies: chest pain or palpitations Resp: Denies: dyspnea or productive cough GI: Denies: nausea or vomiting Neuro: Denies: numbness in extremities PFSH ED 2 PFSH: Medical History (Updated 02/24/25 @ 23:18 by Sameer Yosuif MD) HTN (hypertension) Hyperlipidemia Diabetes mellitus Hx of diverticulitis of colon Surgical History History of back surgery S/P wrist surgery S/P shoulder surgery S/P hernia surgery History of elbow surgery S/P eye surgery Hx of transurethral resection of prostate Family History Mother , IN HER EARLY 70'S CAD (coronary artery disease) Father , AT AGE 74 LUNG Cancer Social History Smoking and tobacco/nicotine status: never used tobacco/nicotine Alcohol intake: never Marital status: Current occupational status: retired Physical Exam 2 Const: COMMON NORMALS: patient oriented x3, healthy appearing and alert HENMT: COMMON NORMALS: normocephalic and atraumatic HEAD & SCALP: n ormocephalic and atraumatic Resp: COMMON NORMALS: normal respiratory effort, No retractions and No use of accessory muscles Cardio: COMMON NORMALS: regular rate RATE: regular rate GI: OTHER: Left lower quadrant tenderness to palpation Back/Pelvis: OTHER: Tenderness to palpation of the lower back lateral to midline worse on the right with palpable muscle tightness, normal flexion and extension of bilateral hips, bilateral knees, bilateral ankles, bilateral great toes, normal DTRs in bilateral knees Extremity: COMMON NORMALS: normal to inspection and full ROM Neuro: COMMON NORMALS: patient oriented x3 SENSORIUM/ORIENTATION: Yes alert Course 2 Vital Signs: Vital signs: Vital Signs Temperature 98.2 F 02/24/25 20:55 Pulse Rate 93 02/24/25 23:00 Respiratory Rate 16 02/24/25 22:00 Blood Pressure 152/64 02/24/25 23:00 Pulse Oximetry 92 02/24/25 23:00 Oxygen Delivery Me thod Room Air 02/24/25 20:55 MDM - Back Pain/Injury Medical Decision Making On reassessment I talked to the patient about his test results. He is resting more comfortably in the gurney at this time. His pain is not gone but it is improved. His CT scan shows no acute intra-abdominal pathology. Will continue muscle relaxer, steroid, anti-inflammatories, and encouraged heat for the next 5 days. We discussed symptoms that should prompt immediate return to the emergency department. Will discharge at this time with precautions to return for worsening or changing symptoms. Labs 02/24/25 21:55 02/24/25 21:55 Radiology Impressions Abdomen/Pelvis CT 02/24/25 21:19 IMPRESSION: No acute findings. COMMENTS: Consistent with the [employer]'s Incidental Findings Committee white paper (J Am Liz Radiol 2018): Any incidental renal lesion less than 1 cm or classified as too small to characterize, or any incidental cystic renal lesion characterized as simple-appearing, is likely benign. No follow-up imaging is recommended for these lesions per consensus recommendations based on imaging criteria. Laboratory Results WBC 6.09 10^3/uL (3.29-11.43) 02/24/25 21:55 RBC 3.88 10^6/uL (3.85-5.65) 02/24/25 21:55 Hgb 12.50 g/dL (11.27-16.99) 02/24/25 21:55 Hct 37.1 % (37-53) 02/24/25 21:55 MCV 95.6 fl (82-101) 02/24/25 21:55 MCH 32.2 pg (27-33) 02/24/25 21:55 MCHC 33.7 g/dL (30-55) 02/24/25 21:55 RDW 13.0 % (12.1-15.1) 02/24/25 21:55 Plt Count 185 10^3/cmm (157-399) 02/24/25 21:55 MPV 8.9 fL (7.4-10.4) 02/24/25 21:55 Neut % (Auto) 46.8 % 02/24/25 21:55 Lymph % (Auto) 31.4 % 02/24/25 21:55 Schleicher % (Auto) 12.5 % 02/24/25 21:55 Eos % (Auto) 8.4 % 02/24/25 21:55 Baso % (Auto) 0.7 % 02/24/25 21:55 Neut # (Auto) 2.86 10^3/uL (1.8-7.7) 02/24/25 21:55 Lymph # (Auto) 1.9 10^3/uL (0.8-4.8) 02/24/25 21:55 Schleicher # (Auto) 0.8 10^3/uL (0.2-0.9) 02/24/25 21:55 Eos # (Auto) 0.5 10^3/uL (0.0-0.8) 02/24/25 21:55 Baso # (Auto) 0.0 10^3/uL (0.0-0.1) 02/24/25 21:55 Nucleated RBC % (auto) 0 % 02/24/25 21:55 Nucleated RBCs # 0.0 /100WBC 02/24/25 21:55 Sodium 141 mmol/L (136-145) 02/24/25 21:55 Potassium 4.3 mmol/L (3.5-5.1) 02/24/25 21:55 Chloride 105 mmol/L (98-107) 02/24/25 21:55 Carbon Dioxide 25 mmol/L (22-29) 02/24/25 21:55 Anion Gap 15.3 (5-19) 02/24/25 21:55 BUN 24 mg/dL (8-23) H 02/24/25 21:55 Creatinine 1.4 mg/dL (0.7-1.2) H 02/24/25 21:55 GFR Calculation Not Reportable 02/24/25 21:55 Glucose 85 mg/dL (65-115) 02/24/25 21:55 Calculated Osmolality 295 mOsm/kg (285-295) 02/24/25 21:55 Calcium 8.9 mg/dL (8.5-10.5) 02/24/25 21:55 Total Bilirubin 0.3 mg/dL (0.15-1.2) 02/24/25 21:55 AST 22 U/L (0-40) 02/24/25 21:55 ALT 14 U/L (0-41) 02/24/25 21:55 Alkaline Phosphatase 40 U/L (40-130) 02/24/25 21:55 Total Protein 6.8 g/dL (6.6-8.7) 02/24/25 21:55 Albumin 4.0 g/dL (3.5-5.2) 02/24/25 21:55 Globulin 2.8 g/dL (1.3-4.6) 02/24/25 21:55 Lipase 24 U/L (13-60) 02/24/25 21:55 All radiology interpretation(s) finalized by discharge Discharge Plan Discharge Patient Disposition: Home Clinical Impression: Acute exacerbation of chronic low back pain Condition: Stable Prescriptions: New prednisone 20 mg tablet 40 mg PO DAILY 4 Days Qty: 8 0RF diazepam [Valium] 5 mg tablet 5 mg PO Q8H PRN (Reason: muscle spasm) Qty: 9 0RF No Action Tresiba U-100 Insulin 100 unit/mL solution 40 unit SUBCUT QAM insulin aspart U-100 [Novolog FlexPen U-100 Insulin] 100 unit/mL (3 mL) insulin pen 22 - 28 unit SUBCUT .TID PER SLIDING SCA fentanyl 25 mcg/hr patch 72 hour 1 patch transdermal Q72H 30 Days Qty: 10 0RF hydrocodone-acetaminophen 10-325 mg tablet 1 tab PO Q4H PRN (Reason: pain) 15 Days Qty: 90 0RF sildenafil 100 mg tablet 50 - 100 mg PO DAILY PRN (Reason: sexual activity) Qty: 30 5RF Rx Instructions: administer 30 minutes to 4 hours before activity pregabalin [Lyrica] 75 mg capsule 75 mg PO BID Qty: 60 3RF amoxicillin-pot clavulanate 875-125 mg tablet 1 tab PO BID Qty: 20 0RF naloxegol 25 mg tablet 25 mg PO QAM Qty: 30 2RF Rx Instructions: must be taken on empty stomach; no food 1 hr after or 2-3 hrs before dose metoprolol tartrate 25 mg tablet 25 mg PO BID Qty: 60 0RF Rx Instructions: PATIENT MUST MAKE APPOINTMENT AND BE SEEN FOR FURTHER REFILLS venlafaxine 150 mg capsule,extended release 24hr 150 mg PO DAILY Qty: 90 3RF prednisone 10 mg tablet See Rx Instructions PO DAILY Qty: 45 0RF Rx Instructions: 4 po qday first day, then 2 po qday x 5 days, the 1 po qday thereafter. fenofibrate micronized 134 mg capsule 134 mg PO DAILY dorzolamide-timolol 22.3-6.8 mg/mL drops 1 drp ophthalmic (eye) BID atorvastatin 80 mg tablet 80 mg PO QPM trazodone 100 mg tablet 100 mg PO BEDTIME lisinopril 10 mg tablet 10 - 20 mg PO DAILY lidocaine 5 % gel See Rx Instructions .ROUTE .COMPLEX PRN (Reason: Pain) Rx Instructions: Apply to affected painful area up to 4 times daily hydrocodone-acetaminophen 5-325 mg tablet 1 tab PO Q6H PRN (Reason: pain) Qty: 14 0RF ciprofloxacin HCl [Cipro] 500 mg tablet 500 mg PO BID Qty: 14 0RF ondansetron 4 mg tablet,disintegrating 4 mg PO Q6H PRN (Reason: nausea and vomiting) Qty: 14 0RF Discharge Orders: Discharge ED (Routine); Ordered 02/24/25 Ordered By: Sameer Yousif Referrals: Jaylan Montero, [Primary Care Provider, Family Practice] Patient Instructions: Muscle Spasm (ED), Heat Pack Application (ED), Opioid Safety, Patient Portal & Darin Instructions Activity Restrictions/Additional Instructions: Continue taking the steroids once a day for the next 4 days. Use heat on your lower back. Continue with ibuprofen 2-3 times a day for the next 5 days. Print Language: Danish Coding Level of Care Code ED Human Resources Project Coordinator for Elo Harris
[2025-02-24] MEDS: methylPREDNISolone sod succ 125 mg/2 mL INJ IVP (21:57)
[2025-02-24 22:00] VITALS: BP 148/83; PULSE 79; RESP 16; O2SAT 93
[2025-02-24 22:00] LABS: Hematocrit 37.1 % (37-53); Hemoglobin 12.50 g/dL (11.27-16.99); Mean Corpuscular HGB Conc 33.7 g/dL (30-55); Mean Corpuscular Hemoglobin 32.2 pg (27-33); Mean Corpuscular Volume 95.6 fl (82-101); Nucleated Red Blood Cells % 0 %; Platelet Count 185 10^3/cmm (157-399); Red Blood Count 3.88 10^6/uL (3.85-5.65); White Blood Count 6.09 10^3/uL (3.29-11.43)
[2025-02-24 22:17] LABS: Alanine Aminotransferase 14 U/L (0-41); Albumin Level 4.0 g/dL (3.5-5.2); Alkaline Phosphatase 40 U/L (40-130); Anion Gap 15.3 (5-19); Aspartate Amino Transferase 22 U/L (0-40); Blood Urea Nitrogen 24 mg/dL (8-23); Calcium 8.9 mg/dL (8.5-10.5); Carbon Dioxide 25 mmol/L (22-29); Chloride 105 mmol/L (98-107); Creatinine Clr Calc Pharmacy 56.4654; Globulin 2.8 g/dL (1.3-4.6); Glucose 85 mg/dL (65-115); Lipase 24 U/L (13-60); Osmolality Calculated 295 mOsm/kg (285-295); Potassium 4.3 mmol/L (3.5-5.1); Sodium 141 mmol/L (136-145); Total Protein 6.8 g/dL (6.6-8.7)
[2025-02-24 22:30] VITALS: BP 142/65; PULSE 79; O2SAT 95
[2025-02-24] MEDS: iohexol 350 mg/mL 500 mL Btl (per mL) IV (22:45)
[2025-02-24 23:00] VITALS: BP 152/64; PULSE 93; O2SAT 92
[2025-02-24 23:39] VITALS: BP 152/64; PULSE 87; O2SAT 94
== END 2025-02-24 23:39 | disposition home or self-care (01) ==
PROVIDERS: Emergency Provider Emergency Medicine; PCP Family Medicine
DX: M54.50 Low back pain, unspecified (principal); Z79.4 Long term (current) use of insulin; E78.5 Hyperlipidemia, unspecified; E11.9 Type 2 diabetes mellitus without complications; I10 Essential (primary) hypertension; R53.83 Other fatigue
CPT/HCPCS: 36415; 36416; 74177; 80053; 82962; 83690; 85025; 96374; 96375; 99285; J1885; J2919; J7040; J9999

== ENCOUNTER 2025-04-27 08:04 | Outpatient (CLI) | payer MEDICARE, OTHER, SELFPAY ==
[2025-04-27 08:45] LABS: Anion Gap 13.2 (5-19); Blood Urea Nitrogen 23 mg/dL (8-23); Calcium 9.0 mg/dL (8.5-10.5); Carbon Dioxide 26 mmol/L (22-29); Chloride 105 mmol/L (98-107); Glucose 89 mg/dL (65-115); Osmolality Calculated 293 mOsm/kg (285-295); Potassium 4.2 mmol/L (3.5-5.1); Sodium 140 mmol/L (136-145)
[2025-04-27 09:00] LABS: Estmated Average Glucose 137; Hemoglobin A1C 6.4 % (4.0-6.0)
== END 2025-04-27 08:05 | disposition home or self-care (01) ==
LOC: LAB 08:05
PROVIDERS: PCP Family Medicine; Visit Provider Nurse Practitioner
DX: E11.9 Type 2 diabetes mellitus without complications (principal); I10 Essential (primary) hypertension; E78.2 Mixed hyperlipidemia
CPT/HCPCS: 36415; 80048; 83036

== ENCOUNTER 2025-06-26 16:53 | Emergency (ER) | payer MEDICARE, OTHER, SELFPAY ==
[2025-06-26 16:58] VITALS: BP 149/72; PULSE 100; RESP 17; TEMP 36.6; O2SAT 98; BMI 30.5
--- NOTE | 2025-06-26 17:33 | W.ED.ANXIETY ---
HPI - Anxiety General: Chief Complaint: Anxiety Stated Complaint: Mhe Time Seen by Provider: 06/26/25 17:13 Source: patient Mode of arrival: ambulatory Limitations: no limitations History of Present Illness: Patient is a 75-year-old male with past medical history of anxiety who presents emergency department in acute panic attack. States that he has had medication changes recently, had his bupropion increased from 150 mg to 300 mg, but also is being weaned off venlafaxine. Reports history of similar in the past, but never this severe. He does not report any SI or HI. States that he is short of breath from hyperventilating, but no chest pain. He is alert and oriented, nontoxic-appearing but is actively anxious at this time. MD complaint: anxiety Onset (ago): hour(s) Symptoms: dyspnea Severity: similar to previous episodes Quality: constant History of similar episodes: Yes Provoking factors: medication change Associated symptoms: Deny chest pain, chills, fever(s), headache(s), nausea, palpitations or vomiting Related Data Home Medications ?Medication ?Instructions ?Recorded ?Confirmed insulin degludec 100 unit/mL 40 unit SUBCUT QAM 12/13/20 06/25/24 subcutaneous solution (Tresiba U-100 Insulin) insulin aspart U-100 100 unit/mL 22 - 28 unit SUBCUT .TID PER 03/28/22 06/25/24 (3 mL) subcutaneous pen (Novolog SLIDING SCA FlexPen U-100 Insulin aspart) dorzolamide 22.3 mg-timolol 6.8 1 drp ophthalmic (eye) BID 06/25/24 06/25/24 mg/mL eye drops fenofibrate micronized 134 mg 134 mg PO DAILY 06/25/24 12/30/24 capsule lidocaine 5 % topical gel See Rx Instructions .Route 06/25/24 06/25/24 .COMPLEX PRN Pain lisinopril 10 mg tablet 10 - 20 mg PO DAILY blood pressure 06/25/24 12/30/24 trazodone 100 mg tablet 100 mg PO BEDTIME 06/25/24 12/30/24 Previous Rx's ?Medication ?Instructions ?Recorded sildenafil 100 mg tablet 50 - 100 mg (0.5 - 1 x 100 mg) PO 10/26/22 DAILY PRN sexual activity #30 tabs pregabalin 75 mg capsule (Lyrica) 75 mg PO BID neuropathy pain #60 12/25/23 caps amoxicillin 875 mg-potassium 1 tab PO BID respiratory infection 06/23/24 clavulanate 125 mg tablet #20 tabs ciprofloxacin HCl 500 mg tablet 500 mg PO BID #14 tabs 06/25/24 (Cipro) hydrocodone 5 mg-acetaminophen 325 1 tab PO Q6H PRN pain #14 tabs 06/25/24 mg tablet ondansetron 4 mg disintegrating 4 mg PO Q6H PRN nausea and 06/25/24 tablet vomiting #14 tabs metoprolol tartrate 25 mg tablet 25 mg PO BID #60 tabs 09/01/24 prednisone 10 mg tablet See Rx Instructions PO DAILY #45 02/02/25 tabs hydrocodone 10 mg-acetaminophen 1 tab PO Q4H PRN pain 15 days #90 02/13/25 325 mg tablet tabs diazepam 5 mg tablet (Valium) 5 mg PO Q8H PRN muscle spasm #9 02/24/25 tabs amoxicillin 875 mg-potassium 1 tab PO BID GI infection #20 tabs 03/13/25 clavulanate 125 mg tablet naloxegol 25 mg tablet 25 mg PO QAM constipation #30 tabs 03/13/25 atorvastatin 80 mg tablet See Rx Instructions .Route 06/01/25 .COMPLEX #90 tabs naloxegol 25 mg tablet 25 mg PO QAM constipation #30 tabs 06/02/25 venlafaxine 75 mg capsule,extended 75 mg PO DAILY moods #30 caps 06/02/25 release 24 hr Held on 06/18/25. 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 30 days #10 ea Allergies Allergy/AdvReac Type Severity Reaction Status Date / Time diazepam (From Valium) AdvReac ADR-Agitate Verified 06/18/25 11:12 d Review of Systems General: Reports: 10 or more systems reviewed and unremarkable except in HPI and below Const: Denies: fever(s), chills or fatigue Eyes: Denies: change in vision ENMT: Denies: throat pain, ear or mastoid pain or nasal discharge Card: Denies: chest pain, palpitations, swelling of feet/ankles or lightheadedness Resp: Reports: dyspnea; Denies: productive cough or wheezing GI: Denies: abdominal pain, nausea, vomiting, diarrhea or constipation : Denies: flank pain, difficulty urinating, dysuria or urinary frequency Musc: Denies: neck pain, back pain or joint pain Skin/Breast: Denies: rash Neuro: Denies: headache(s), numbness in extremities or weakness in extremities Psych: Reports: anxiety; Denies: visual hallucinations, auditory hallucinations, tactile hallucinations, suicidal ideation or homicidal ideation PFSH ED PFSH: Medical History HTN (hypertension) Hyperlipidemia Diabetes mellitus Hx of diverticulitis of colon Surgical History History of back surgery S/P wrist surgery S/P shoulder surgery S/P hernia surgery History of elbow surgery S/P eye surgery Hx of transurethral resection of prostate Family History Mother , IN HER EARLY 70'S CAD (coronary artery disease) Father , AT AGE 74 LUNG Cancer Social History Smoking and tobacco/nicotine status: never used tobacco/nicotine Alcohol intake: never Marital status: Current occupational status: retired Physical Exam Const: COMMON NORMALS: patient oriented x3 and no limitations GENERAL APPEARANCE: cooperative, well developed and anxious ORIENTATION/CONSCIOUSNESS: Yes awake, Yes oriented to person, Yes oriented to place and Yes oriented to time Resp: COMMON NORMALS: normal respiratory effort, No retractions, No use of accessory muscles and clear to auscultation bilaterally AUSCULTATION: clear to auscultation bilaterally Cardio: COMMON NORMALS: regular rate, regular rhythm, No clicks present (Cardio), No murmurs present (Cardio) and No rub (Cardio) RATE: regular rate RHYTHM: regular rhythm Extremity: COMMON NORMALS: normal to inspection, full ROM and capillary refill normal Neuro: COMMON NORMALS: patient oriented x3, moves all extremities, no focal motor deficits and no sensory deficits noted SENSORIUM/ORIENTATION: Yes oriented to person, Yes oriented to place and Yes oriented to time Psych: COMMON NORMALS: speech normal APPEARANCE: Yes grossly normal SPEECH: Yes normal speech MOOD & AFFECT: Yes anxious THOUGHT CONTENT: No Suicidality present, No Homicidality present and No Hallucination(s) present Skin: COMMON NORMALS: no rashes or lesions noted GENERAL SKIN EXAM: no rashes or lesions noted Course Vital Signs: Vital signs: Vital Signs Temperature 97.8 F 06/26/25 16:58 Pulse Rate 91 06/26/25 19:11 Respiratory Rate 17 06/26/25 16:58 Blood Pressure 121/63 06/26/25 19:11 Pulse Oximetry 94 06/26/25 19:11 Oxygen Delivery Me thod Room Air 06/26/25 17:49 MDM - Anxiety Medical Decision Making Patient presented for acute anxiety, stating history of similar he does note he has been undergoing medication changes for his anxiety. Some shortness of breath was noted, and sense of panic, and his symptoms were completely relieved after Ativan here in the emergency department and he stated he was ready to leave and go home. Told him to follow-up with primary care in regards to his anxiety and other medications, he denied any suicidal ideations or homicidal actions here. Stable for discharge at this time, told to return if worse. No radiology studies performed this visit Discharge Plan Discharge Patient Disposition: Home Clinical Impression: Acute anxiety Condition: Stable Prescriptions: No Action Tresiba U-100 Insulin 100 unit/mL solution 40 unit SUBCUT QAM insulin aspart U-100 [Novolog FlexPen U-100 Insulin] 100 unit/mL (3 mL) insulin pen 22 - 28 unit SUBCUT .TID PER SLIDING SCA hydrocodone-acetaminophen 10-325 mg tablet 1 tab PO Q4H PRN (Reason: pain) 15 Days Qty: 90 0RF bupropion HCl 300 mg tablet extended release 24 hr 300 mg PO QAM Qty: 30 1RF fentanyl 100 mcg/hr patch 72 hour 1 patch transdermal Q72H 30 Days Qty: 10 0RF amoxicillin-pot clavulanate 875-125 mg tablet 1 tab PO BID Qty: 20 0RF naloxegol 25 mg tablet 25 mg PO QAM Qty: 30 2RF Rx Instructions: must be taken on empty stomach; no food 1 hr after or 2-3 hrs before dose naloxegol 25 mg tablet 25 mg PO QAM Qty: 30 2RF Rx Instructions: must be taken on empty stomach; no food 1 hr after or 2-3 hrs before dose venlafaxine 75 mg capsule,extended release 24hr 75 mg PO DAILY Qty: 30 3RF sildenafil 100 mg tablet 50 - 100 mg PO DAILY PRN (Reason: sexual activity) Qty: 30 5RF Rx Instructions: administer 30 minutes to 4 hours before activity pregabalin [Lyrica] 75 mg capsule 75 mg PO BID Qty: 60 3RF amoxicillin-pot clavulanate 875-125 mg tablet 1 tab PO BID Qty: 20 0RF metoprolol tartrate 25 mg tablet 25 mg PO BID Qty: 60 0RF Rx Instructions: PATIENT MUST MAKE APPOINTMENT AND BE SEEN FOR FURTHER REFILLS prednisone 10 mg tablet See Rx Instructions PO DAILY Qty: 45 0RF Rx Instructions: 4 po qday first day, then 2 po qday x 5 days, the 1 po qday thereafter. atorvastatin 80 mg tablet See Rx Instructions .ROUTE .COMPLEX Qty: 90 3RF Dose Instruction: TAKE 1 TABLET BY MOUTH EVERY DAY at night Rx Instructions: TAKE 1 TABLET BY MOUTH EVERY DAY at night diazepam [Valium] 5 mg tablet 5 mg PO Q8H PRN (Reason: muscle spasm) Qty: 9 0RF fenofibrate micronized 134 mg capsule 134 mg PO DAILY dorzolamide-timolol 22.3-6.8 mg/mL drops 1 drp ophthalmic (eye) BID trazodone 100 mg tablet 100 mg PO BEDTIME lisinopril 10 mg tablet 10 - 20 mg PO DAILY lidocaine 5 % gel See Rx Instructions .ROUTE .COMPLEX PRN (Reason: Pain) Rx Instructions: Apply to affected painful area up to 4 times daily hydrocodone-acetaminophen 5-325 mg tablet 1 tab PO Q6H PRN (Reason: pain) Qty: 14 0RF ciprofloxacin HCl [Cipro] 500 mg tablet 500 mg PO BID Qty: 14 0RF ondansetron 4 mg tablet,disintegrating 4 mg PO Q6H PRN (Reason: nausea and vomiting) Qty: 14 0RF Discharge Orders: Discharge ED (Routine); Ordered 06/26/25 Ordered By: Carlos No Referrals: Jaylan Montero DO [Primary Care Provider, Family Practice] Patient Instructions: Patient Portal & Darin Instructions Activity Restrictions/Additional Instructions: Please continue taking your home medications as has been prescribed by primary care. Please call primary care on Sunday to schedule an appointment to discuss your medications and any possible changes. Please return with any worsening of symptoms, thoughts of suicide or homicide, or any other concerns that you have. Print Language: Croatian Coding Level of Care Code ED Counting Machine Operator for Elo Harris
[2025-06-26] MEDS: LORazepam 2 mg/mL INJ 1 mL IM (17:40)
[2025-06-26 17:49] VITALS: BP 123/78; PULSE 99; O2SAT 97
[2025-06-26 19:11] VITALS: BP 121/63; PULSE 91; O2SAT 94
== END 2025-06-26 19:11 | disposition home or self-care (01) ==
PROVIDERS: Emergency Provider Physician Assistant; PCP Family Medicine
DX: F41.8 Other specified anxiety disorders (principal); Z79.4 Long term (current) use of insulin; E78.5 Hyperlipidemia, unspecified; E11.9 Type 2 diabetes mellitus without complications; I10 Essential (primary) hypertension
CPT/HCPCS: 96372; 99284; J2060; J9999

== ENCOUNTER 2025-06-27 15:28 | Inpatient (IN) | payer MEDICARE, OTHER, SELFPAY ==
[2025-06-27 15:33] VITALS: BP 122/60; PULSE 91; RESP 16; TEMP 36.8; O2SAT 97; BMI 30.5
--- NOTE | 2025-06-27 17:27 | ECG_ITS ---
[facility] Test Date: 2025-06-27 Pat Name: Naresh Carmona Department: Room: Gender: Male Corporate Analyst: : 1950 Requested By: Carlos Prakash Order Number: [id number] Fischer MD: Olivia Hoffmann M.D. Measurements Intervals Theodore Rate: 92 P: 35 [place]: 162 QRS: -50 QRSD: 109 T: 73 QT: 357 QTc: 443 Interpretive Statements SINUS RHYTHM LEFT ANTERIOR FASCICULAR BLOCK [QRS AXIS <= -45, QR IN I, RS IN II] Compared to ECG 02/23/2022 23:16:34 Left anterior fascicular block now present Left-axis deviation no longer present T-wave abnormality no longer present Electronically Signed On 06-28-2025 20:16:16 SHAPER SET UP OPERATOR by Olivia Hoffmann M.D. [email or web address]
--- NOTE | 2025-06-27 17:27 | XRR_ITS ---
PROCEDURE INFORMATION: Exam: XR Chest Exam date and time: 06/27/2025 5:31 PM Age: 75 years old Clinical indication: Pain; Chest pressure; Additional info: Right chest pain TECHNIQUE: Imaging protocol: Radiologic exam of the chest. Views: 1 view. COMPARISON: CT abdomen pelvis w con* [id number] 02/24/2025 10:50 PM FINDINGS: Lungs: Hypoinflated lungs. Pleural spaces: Unremarkable. No pleural effusion. No pneumothorax. Heart/Mediastinum: Unremarkable. No cardiomegaly. Bones/joints: Degenerative changes thoracic spine. Tendon screw proximal left humeral head. Gastrointestinal tract: Dilated bowel loops incompletely visualized on this examination. Other findings: No acute intrathoracic abnormality. XR/XR chest 1V portable [id number] IMPRESSION: 1. No acute intrathoracic abnormality. 2. Hypoinflated lungs. 3. Dilated bowel loops incompletely visualized on this examination.
[2025-06-27 17:37] VITALS: BP 139/81; PULSE 79; O2SAT 99
[2025-06-27 17:41] LABS: Glucose Urine UA Negative (Normal); Nitrate Urine Negative (Negative); Specific Gravity, Urine 1.021 (1.005-1.030)
[2025-06-27 17:41] LABS: Hematocrit 35.7 % (37-53); Hemoglobin 11.70 g/dL (11.27-16.99); Mean Corpuscular HGB Conc 32.8 g/dL (30-55); Mean Corpuscular Hemoglobin 30.7 pg (27-33); Mean Corpuscular Volume 93.7 fl (82-101); Nucleated Red Blood Cells % 0 %; Platelet Count 181 10^3/cmm (157-399); Red Blood Count 3.81 10^6/uL (3.85-5.65); White Blood Count 9.23 10^3/uL (3.29-11.43)
[2025-06-27 17:43] LABS: Add Urine Microscopic? YES
--- NOTE | 2025-06-27 17:46 | ED_ITS ---
Documented by User: SHAY Shell 06/27/25 19:40 HPI - General Adult 2 General: Chief complaint: General Medical Stated complaint: SOB Pain in shoulders Time Seen by Provider: 06/27/25 17:11 Source: patient Mode of arrival: ambulatory Limitations: no limitations History of Present Illness: Patient is a 75-year-old male present to the emergency department for shortness of breath. He was seen here in the emergency department yesterday for acute anxiety episode was treated with Ativan which ameliorated his symptoms. States that he went home and his anxiety came back and he started developing shortness of breath and chest pain, however states that primarily it has been in the right shoulder. Notes that the pain is reproducible with range of motion of the right shoulder and tender to palpation. Does state that the pain radiates down the right side all the way into his abdomen and he is concerned that he has diverticulitis. He is notably anxious at this time, he is afraid to take a deep breath because it makes the pain in his shoulder worse. States that intermittently the pain will come in waves that are 10/10. Denies any trauma to the thoracic region. Denies any cardiac history. Has not taken any pain medications. He did take an Ativan prior to coming him states this did not help his symptoms. His vitals are stable at this time. Denies any nausea vomiting diarrhea, fevers, constipation, blood in his stool, or any other concerning symptoms at this time. Of note, which was noted yesterday, he has been undergoing medication changes for his anxiety. MD complaint: sob, cp, abd pain, anxiety Associated symptoms: Reports chest pain and dyspnea; Deny headache(s), nausea, rash, palpitations or vomiting Related Data Home Medications ?Medication ?Instructions ?Recorded ?Confirmed insulin degludec 100 unit/mL 40 unit SUBCUT QAM 06/25/24 subcutaneous solution (Tresiba U-100 Insulin) insulin aspart U-100 100 unit/mL 22 - 28 unit SUBCUT . TID PER 03/28/22 06/25/24 (3 mL) subcutaneous pen (Novolog SLIDING SCA FlexPen U-100 Insulin aspart) dorzolamide 22.3 mg-timolol 6.8 1 drp ophthalmic (eye) BID 06/25/24 06/25/24 mg/mL eye drops fenofibrate micronized 134 mg 134 mg PO DAILY 06/25/24 12/30/24 capsule lidocaine 5 % topical gel See Rx Instructions .Route 1 08/25/23 06/25/24 .COMPLEX PRN Pain lisinopril 10 mg tablet 10 - 20 mg PO DAILY blood pr essure 06/25/24 12/30/24 trazodone 100 mg tablet 100 mg PO BEDTIME 06/25/24 0 12/30/24 Previous Rx's ?Medication ?Instructions ?Recorded sildenafil 100 mg tablet 50 - 100 mg (0.5 - 1 x 100 m g) PO 10/26/22 DAILY PRN sexual activity #30 tabs pregabalin 75 mg capsule (Lyrica) 75 mg PO BID neuropa thy pain #60 12/25/23 caps amoxicillin 875 mg-potassium 1 tab PO BID respiratory infection 06/23/24 clavulanate 125 mg tablet #20 tabs ciprofloxacin HCl 500 mg tablet 500 mg PO BID #14 tabs 06/25/24 (Cipro) hydrocodone 5 mg-acetaminophen 325 1 tab PO Q6H PRN pa in #14 tabs 06/25/24 mg tablet ondansetron 4 mg disintegrating 4 mg PO Q6H PRN nausea and 06/25/24 tablet vomiting #14 tabs metoprolol tartrate 25 mg tablet 25 mg PO BID #60 tabs 09/01/24 prednisone 10 mg tablet See Rx Instructions PO DAILY #45 02/02/25 tabs hydrocodone 10 mg-acetaminophen 1 tab PO Q4H PRN pain 15 days #90 02/13/25 325 mg tablet tabs diazepam 5 mg tablet (Valium) 5 mg PO Q8H PRN muscle s pasm #9 02/24/25 tabs amoxicillin 875 mg-potassium 1 tab PO BID GI infection #20 tabs 03/13/25 clavulanate 125 mg tablet naloxegol 25 mg tablet 25 mg PO QAM constipation # 30 tabs 03/13/25 atorvastatin 80 mg tablet See Rx Instructions .Route 1 .COMPLEX #90 tabs naloxegol 25 mg tablet 25 mg PO QAM constipation # 30 tabs 06/02/25 venlafaxine 75 mg capsule,extended 75 mg PO DAILY mood s #30 caps 06/02/25 release 24 hr Held on 06/18/25. 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 30 days #10 e a Allergies Allergy/AdvReac Type Severity Reaction Status Date / Time diazepam (From Valium) AdvReac ADR-Agitate Verified 06/27/25 15:37 d Review of Systems 2 General: Reports: 10 or more systems reviewed and unremarkable except in HPI and below Const: Denies: fever(s), chills or fatigue Eyes: Denies: change in vision ENMT: Denies: throat pain, ear or mastoid pain or nasal discharge Card: Reports: chest pain; Denies: palpitations, swelling of feet/ankles or lightheadedness Resp: Reports: dyspnea; Denies: productive cough or wheezing GI: Reports: abdominal pain; Denies: nausea, vomiting, diarrhea or constipation : Denies: flank pain, difficulty urinating, dysuria or urinary frequency Musc: Denies: neck pain or back pain Skin/Breast: Denies: rash Neuro: Denies: headache(s), numbness in extremities or weakness in extremities Psych: Reports: anxiety PFSH ED 2 PFSH: Medical History HTN (hypertension) Hyperlipidemia Diabetes mellitus Hx of diverticulitis of colon Surgical History History of back surgery S/P wrist surgery S/P shoulder surgery S/P hernia surgery History of elbow surgery S/P eye surgery Hx of transurethral resection of prostate Family History Mother , IN HER EARLY 70'S CAD (coronary artery disease) Father , AT AGE 74 LUNG Cancer Social History Smoking and tobacco/nicotine status: never used tobacco/nicotine Alcohol intake: never Marital status: Current occupational status: retired Physical Exam 2 Const: COMMON NORMALS: no acute distress, patient oriented x3 and no limitations GENERAL APPEARANCE: cooperative and anxious O RIENTATION/CONSCIOUSNESS: Yes awake, Yes oriented to person, Yes oriented to place and Yes oriented to time HENMT: COMMON NORMALS: normocephalic, atraumatic and hearing grossly normal bilaterally HEAD & SCALP: normocephalic and atraumatic Eye: COMMON NORMALS: Equal, round and reactive pupils present, EOMs intact bilaterally and conjunctivae normal CONJUNCTIVA: Yes conjunctivae normal P UPIL: Yes Equal, round and reactive pupils present Neck/C-Spine: COMMON NORMALS: full ROM, supple and no JVD Chest: COMMONS NORMALS: normal inspection of the chest and normal palpation of entire chest wall Resp: COMMON NORMALS: normal respiratory effort, No retractions, No use of accessory muscles and clear to auscultation bilaterally AUSCULTATION: clear to auscultation bilaterally Cardio: COMMON NORMALS: no JVD, regular rate, regular rhythm, No clicks present (Cardio), No murmurs present (Cardio) and No rub (Cardio) RATE: r egular rate RHYTHM: regular rhythm GI: COMMON NORMALS: Normal to inspection, nondistended, normoactive bowel sounds present, Soft to palpation and non-tender AUSCULTATION: Yes normoactive bowel sounds PALPATION: Yes Soft to palpation RECTAL EXAM: Yes deferred Extremity: COMMON NORMALS: normal to inspection, full ROM and capillary refill normal NARRATIVE EXTREMITY EXAM: Reproducible tenderness to palpation to right anterior shoulder joint, full range of motion Neuro: COMMON NORMALS: patient oriented x3, moves all extremities, no focal motor deficits and no sensory deficits noted SENSORIUM/ORIENTATION: Yes oriented to person, Yes oriented to place and Yes oriented to time Psych: MOOD & AFFECT: Yes anxious Skin: COMMON NORMALS: no rashes or lesions noted GENERAL SKIN EXAM: no rashes or lesions noted Course 2 Vital Signs: Vital signs: Vital Signs Temperature 98.2 F 06/27/25 15:33 Pulse Rate 79 06/27/25 17:37 Respiratory Rate 16 06/27/25 15:33 Blood Pressure 139/81 06/27/25 17:37 Pulse Oximetry 99 06/27/25 17:37 Oxygen Delivery Me thod Room Air 06/27/25 15:33 [facility] - General Adult Medical Decision Making Patient presented with shortness of breath and chest pain, also is acutely anxious. Was seen here yesterday for anxiety, improved after Ativan. No history of recent long travel, no history of cancer, no coagulopathies, no use of blood thinners in the past. No adventitious sounds with cardiopulmonary auscultation. Did have some reproducible tenderness to palpation of the right shoulder joint, but otherwise a physical exam was unremarkable. Vitals have been stable, O2 saturation has been 97 to 99% on room air throughout the course of the ED stay and overall appeared nontoxic. His lab work overall unremarkable. CTA showing acute pulmonary embolus with no evidence of right heart strain, potential pneumonia to the right lower lobe but also could represent atelectasis. He has not been coughing or running fevers. Will initiate Eliquis, spoke to Dr. Her, agreeing to accept the patient for observation for beginning anticoagulation and due to his age. Patient and family informed of this plan and they agree, all other questions and concerns addressed. Dr. Reyes informed of patient's case and current findings and placing admit orders at this time. Lab Data 06/27/25 17:36 06/27/25 17:36 Radiology Impressions Chest X-Ray 06/27/25 17:27 IMPRESSION: 1. No acute intrathoracic abnormality. 2. Hypoinflated lungs. 3. Dilated bowel loops incompletely visualized on this examination. Chest/Abdomen/Pelvis CTA 06/27/25 18:01 IMPRESSION: 1. CT chest dictated separately showing acute pulmonary embolus. 2. No acute abnormality in the abdomen or pelvis. 3. Enlarged prostate gland with circumferential thickening of the bladder. 4. Diverticulosis most prominent in the sigmoid colon without evidence of diverticulitis. ADDENDUM: 06/27/251925 Chest CTA: 1. Acute pulmonary emboli at the distal right main pulmonary artery extending into the middle segmental pulmonary artery and interlobar artery and basal sub segmental aspects on the right. LV to RV ratio of 0.9. No evidence of significant right heart strain. 2. Consolidation in the right lower lobe which is nonspecific but can be seen in pneumonia. 3. Small right pleural effusion. COMMENT: THIS REPORT CONTAINS FINDINGS THAT MAY BE CRITICAL TO PATIENT CARE. The exam findings were verbally communicated by me to MARISELA IRAHETA via telephone conference at 7:24 PM PUBLIC POLICY MEDIATOR on 06/27/2025. The findings were acknowledged and understood. Laboratory Results WBC 9.23 10^3/uL (3.29-11.43) 06/27/25 17:36 RBC 3.81 10^6/uL (3.85-5.65) L 06/27/25 17:36 Hgb 11.70 g/dL (11.27-16.99) 06/27/25 17:36 Hct 35.7 % (37-53) L 06/27/25 17:36 MCV 93.7 fl (82-101) 06/27/25 17:36 MCH 30.7 pg (27-33) 06/27/25 17:36 MCHC 32.8 g/dL (30-55) 06/27/25 17:36 RDW 12.6 % (12.1-15.1) 06/27/25 17:36 Plt Count 181 10^3/cmm (157-399) 06/27/25 17:36 MPV 8.8 fL (7.4-10.4) 06/27/25 17:36 Neut % (Auto) 74.3 % 06/27/25 17:36 Lymph % (Auto) 12.2 % 06/27/25 17:36 [place] % (Auto) 11.7 % 06/27/25 17:36 Eos % (Auto) 1.1 % 06/27/25 17:36 Baso % (Auto) 0.3 % 06/27/25 17:36 Neut # (Auto) 6.85 10^3/uL (1.8-7.7) 06/27/25 17:36 Lymph # (Auto) 1.1 10^3/uL (0.8-4.8) 06/27/25 17:36 [place] # (Auto) 1.1 10^3/uL (0.2-0.9) H 06/27/25 17:36 Eos # (Auto) 0.1 10^3/uL (0.0-0.8) 06/27/25 17:36 Baso # (Auto) 0.0 10^3/uL (0.0-0.1) 06/27/25 17:36 Nucleated RBC % (auto) 0 % 06/27/25 17:36 Nucleated RBCs # 0.0 /100WBC 06/27/25 17:36 D-Dimer 3.23 ug/mLFEU (0-0.59) H 06/27/25 17:36 Sodium 136 mmol/L (136-145) 06/27/25 17:36 Potassium 4.7 mmol/L (3.5-5.1) 06/27/25 17:36 Chloride 100 mmol/L (98-107) 06/27/25 17:36 Carbon Dioxide 25 mmol/L (22-29) 06/27/25 17:36 Anion Gap 15.6 (5-19) 06/27/25 17:36 BUN 24 mg/dL (8-23) H 06/27/25 17:36 Creatinine 1.3 mg/dL (0.7-1.2) H 06/27/25 17:36 GFR Calculation Not Reportable 06/27/25 17:36 Glucose 109 mg/dL (65-115) 06/27/25 17:36 Calculated Osmolality 289 mOsm/kg (285-295) 06/27/25 17:36 Calcium 8.9 mg/dL (8.5-10.5) 06/27/25 17:36 Total Bilirubin 0.6 mg/dL (0.15-1.2) 06/27/25 17:36 AST 17 U/L (0-40) 06/27/25 17:36 ALT 12 U/L (0-41) 06/27/25 17:36 Alkaline Phosphatase 36 U/L (40-130) L 06/27/25 17:36 Troponin T Baseline 23 ng/L (0-15) H 06/27/25 17:36 Troponin T 120 Minute 22.50 ng/L (0-15) H 06/27/25 19:21 Delta Troponin T -0.50 ABS# (0-10) L 06/27/25 19:21 Total Protein 6.4 g/dL (6.6-8.7) L 06/27/25 17:36 Albumin 3.8 g/dL (3.5-5.2) 06/27/25 17:36 Globulin 2.6 g/dL (1.3-4.6) 06/27/25 17:36 Lipase 17 U/L (13-60) 06/27/25 17:36 Urine Color Yellow (Yellow) 06/27/25 16:31 Urine Appearance Clear (CLEAR) 06/27/25 16:31 Urine pH 6.0 (5-7) 06/27/25 16:31 Ur Specific [place] 1.021 (1.005-1.030) 06/27/25 16:31 Urine Protein Negative (Negative) 06/27/25 16:31 Urine Glucose (UA) Negative (Normal) 06/27/25 16:31 Urine Ketones Negative (Negative) 06/27/25 16:31 Urine Blood Negative (Negative) 06/27/25 16:31 Urine Nitrate Negative (Negative) 06/27/25 16:31 Urine Bilirubin Negative (Negative) 06/27/25 16:31 Urine Urobilinogen 1.0 mg/dL (Negative) 06/27/25 16:31 Ur Leukocyte Esterase Negative (Negative) 06/27/25 16:31 Urine RBC 0-2 /hpf (0-2) 06/27/25 16:31 Urine WBC 0-5 /hpf (0-5) 06/27/25 16:31 Ur Squamous Epith Cells 0-5 /hpf (0-5) 06/27/25 16:31 Amorphous Sediment Not Reportable 06/27/25 16:31 Urine Bacteria None seen /hpf (NONE) 06/27/25 16:31 Hyaline Casts 0-4 /lpf H 06/27/25 16:31 All radiology interpretation(s) finalized by discharge Discharge Plan Discharge Patient Disposition: Placed in Observation Clinical Impression: Pulmonary embolism Qualifiers: Pulmonary embolism type: unspecified Chronicity: acute Acute cor pulmonale presence: without acute cor pulmonale Qualified Code(s): I26.99 - Other pulmonary embolism without acute cor pulmonale Coding Level of Care Code ED Stator Plate Washer for Chg Fwd Documented by User: Carlos Reyes DO 06/27/25 20:08 HPI - General Adult 2 General: Chief complaint: General Medical Stated complaint: SOB Pain in shoulders Time Seen by Provider: 06/27/25 17:11 Related Data Home Medications ?Medication ?Instructions ?Recorded ?Confirmed insulin degludec 100 unit/mL 40 unit SUBCUT QAM 06/25/24 subcutaneous solution (Tresiba U-100 Insulin) insulin aspart U-100 100 unit/mL 22 - 28 unit SUBCUT . TID PER 03/28/22 06/25/24 (3 mL) subcutaneous pen (Novolog SLIDING SCA FlexPen U-100 Insulin aspart) dorzolamide 22.3 mg-timolol 6.8 1 drp ophthalmic (eye) BID 06/25/24 06/25/24 mg/mL eye drops fenofibrate micronized 134 mg 134 mg PO DAILY 06/25/24 12/30/24 capsule lidocaine 5 % topical gel See Rx Instructions .Route 1 08/25/23 06/25/24 .COMPLEX PRN Pain lisinopril 10 mg tablet 10 - 20 mg PO DAILY blood pr essure 06/25/24 12/30/24 trazodone 100 mg tablet 100 mg PO BEDTIME 06/25/24 0 12/30/24 Previous Rx's ?Medication ?Instructions ?Recorded sildenafil 100 mg tablet 50 - 100 mg (0.5 - 1 x 100 m g) PO 10/26/22 DAILY PRN sexual activity #30 tabs pregabalin 75 mg capsule (Lyrica) 75 mg PO BID neuropa thy pain #60 12/25/23 caps amoxicillin 875 mg-potassium 1 tab PO BID respiratory infection 06/23/24 clavulanate 125 mg tablet #20 tabs ciprofloxacin HCl 500 mg tablet 500 mg PO BID #14 tabs 06/25/24 (Cipro) hydrocodone 5 mg-acetaminophen 325 1 tab PO Q6H PRN pa in #14 tabs 06/25/24 mg tablet ondansetron 4 mg disintegrating 4 mg PO Q6H PRN nausea and 06/25/24 tablet vomiting #14 tabs metoprolol tartrate 25 mg tablet 25 mg PO BID #60 tabs 09/01/24 prednisone 10 mg tablet See Rx Instructions PO DAILY #45 02/02/25 tabs hydrocodone 10 mg-acetaminophen 1 tab PO Q4H PRN pain 15 days #90 02/13/25 325 mg tablet tabs diazepam 5 mg tablet (Valium) 5 mg PO Q8H PRN muscle s pasm #9 02/24/25 tabs amoxicillin 875 mg-potassium 1 tab PO BID GI infection #20 tabs 03/13/25 clavulanate 125 mg tablet naloxegol 25 mg tablet 25 mg PO QAM constipation # 30 tabs 03/13/25 atorvastatin 80 mg tablet See Rx Instructions .Route 1 .COMPLEX #90 tabs naloxegol 25 mg tablet 25 mg PO QAM constipation # 30 tabs 06/02/25 venlafaxine 75 mg capsule,extended 75 mg PO DAILY mood s #30 caps 06/02/25 release 24 hr Held on 06/18/25. 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 30 days #10 e a Allergies Allergy/AdvReac Type Severity Reaction Status Date / Time diazepam (From Valium) AdvReac ADR-Agitate Verified 06/27/25 15:37 d PFSH ED 2 PFSH: Medical History HTN (hypertension) Hyperlipidemia Diabetes mellitus Hx of diverticulitis of colon Surgical History History of back surgery S/P wrist surgery S/P shoulder surgery S/P hernia surgery History of elbow surgery S/P eye surgery Hx of transurethral resection of prostate Family History Mother , IN HER EARLY 70'S CAD (coronary artery disease) Father , AT AGE 74 LUNG Cancer Social History Smoking and tobacco/nicotine status: never used tobacco/nicotine Alcohol intake: never Marital status: Current occupational status: retired Course 2 Vital Signs: Vital signs: Vital Signs Temperature 98.2 F 06/27/25 15:33 Pulse Rate 79 06/27/25 17:37 Respiratory Rate 16 06/27/25 15:33 Blood Pressure 139/81 06/27/25 17:37 Pulse Oximetry 99 06/27/25 17:37 Oxygen Delivery Me thod Room Air 06/27/25 15:33 MDM - General Adult Medical Decision Making Patient presented with shortness of breath and chest pain, also is acutely anxious. Was seen here yesterday for anxiety, improved after Ativan. No history of recent long travel, no history of cancer, no coagulopathies, no use of blood thinners in the past. No adventitious sounds with cardiopulmonary auscultation. Did have some reproducible tenderness to palpation of the right shoulder joint, but otherwise a physical exam was unremarkable. Vitals have been stable, O2 saturation has been 97 to 99% on room air throughout the course of the ED stay and overall appeared nontoxic. His lab work overall unremarkable. CTA showing acute pulmonary embolus with no evidence of right heart strain, potential pneumonia to the right lower lobe but also could represent atelectasis. He has not been coughing or running fevers. Will initiate Eliquis, spoke to Dr. Her, agreeing to accept the patient for observation for beginning anticoagulation and due to his age. Patient and family informed of this plan and they agree, all other questions and concerns addressed. Dr. Reyes informed of patient's case and current findings and placing admit orders at this time. This patient was originally seen by Mr. Marybel PA-C. I agree with his history, evaluation, and management. Admission orders written. Lab Data 06/27/25 17:36 06/27/25 17:36 Radiology Impressions Chest X-Ray 06/27/25 17:27 IMPRESSION: 1. No acute intrathoracic abnormality. 2. Hypoinflated lungs. 3. Dilated bowel loops incompletely visualized on this examination. Chest/Abdomen/Pelvis CTA 06/27/25 18:01 IMPRESSION: 1. CT chest dictated separately showing acute pulmonary embolus. 2. No acute abnormality in the abdomen or pelvis. 3. Enlarged prostate gland with circumferential thickening of the bladder. 4. Diverticulosis most prominent in the sigmoid colon without evidence of diverticulitis. ADDENDUM: 06/27/251925 Chest CTA: 1. Acute pulmonary emboli at the distal right main pulmonary artery extending into the middle segmental pulmonary artery and interlobar artery and basal sub segmental aspects on the right. LV to RV ratio of 0.9. No evidence of significant right heart strain. 2. Consolidation in the right lower lobe which is nonspecific but can be seen in pneumonia. 3. Small right pleural effusion. COMMENT: THIS REPORT CONTAINS FINDINGS THAT MAY BE CRITICAL TO PATIENT CARE. The exam findings were verbally communicated by me to MARISELA IRAHETA via telephone conference at 7:24 PM PUBLIC POLICY MEDIATOR on 06/27/2025. The findings were acknowledged and understood. Laboratory Results WBC 9.23 10^3/uL (3.29-11.43) 06/27/25 17:36 RBC 3.81 10^6/uL (3.85-5.65) L 06/27/25 17:36 Hgb 11.70 g/dL (11.27-16.99) 06/27/25 17:36 Hct 35.7 % (37-53) L 06/27/25 17:36 MCV 93.7 fl (82-101) 06/27/25 17:36 MCH 30.7 pg (27-33) 06/27/25 17:36 MCHC 32.8 g/dL (30-55) 06/27/25 17:36 RDW 12.6 % (12.1-15.1) 06/27/25 17:36 Plt Count 181 10^3/cmm (157-399) 06/27/25 17:36 MPV 8.8 fL (7.4-10.4) 06/27/25 17:36 Neut % (Auto) 74.3 % 06/27/25 17:36 Lymph % (Auto) 12.2 % 06/27/25 17:36 [place] % (Auto) 11.7 % 06/27/25 17:36 Eos % (Auto) 1.1 % 06/27/25 17:36 Baso % (Auto) 0.3 % 06/27/25 17:36 Neut # (Auto) 6.85 10^3/uL (1.8-7.7) 06/27/25 17:36 Lymph # (Auto) 1.1 10^3/uL (0.8-4.8) 06/27/25 17:36 [place] # (Auto) 1.1 10^3/uL (0.2-0.9) H 06/27/25 17:36 Eos # (Auto) 0.1 10^3/uL (0.0-0.8) 06/27/25 17:36 Baso # (Auto) 0.0 10^3/uL (0.0-0.1) 06/27/25 17:36 Nucleated RBC % (auto) 0 % 06/27/25 17:36 Nucleated RBCs # 0.0 /100WBC 06/27/25 17:36 D-Dimer 3.23 ug/mLFEU (0-0.59) H 06/27/25 17:36 Sodium 136 mmol/L (136-145) 06/27/25 17:36 Potassium 4.7 mmol/L (3.5-5.1) 06/27/25 17:36 Chloride 100 mmol/L (98-107) 06/27/25 17:36 Carbon Dioxide 25 mmol/L (22-29) 06/27/25 17:36 Anion Gap 15.6 (5-19) 06/27/25 17:36 BUN 24 mg/dL (8-23) H 06/27/25 17:36 Creatinine 1.3 mg/dL (0.7-1.2) H 06/27/25 17:36 GFR Calculation Not Reportable 06/27/25 17:36 Glucose 109 mg/dL (65-115) 06/27/25 17:36 Calculated Osmolality 289 mOsm/kg (285-295) 06/27/25 17:36 Calcium 8.9 mg/dL (8.5-10.5) 06/27/25 17:36 Total Bilirubin 0.6 mg/dL (0.15-1.2) 06/27/25 17:36 AST 17 U/L (0-40) 06/27/25 17:36 ALT 12 U/L (0-41) 06/27/25 17:36 Alkaline Phosphatase 36 U/L (40-130) L 06/27/25 17:36 Troponin T Baseline 23 ng/L (0-15) H 06/27/25 17:36 Troponin T 120 Minute 22.50 ng/L (0-15) H 06/27/25 19:21 Delta Troponin T -0.50 ABS# (0-10) L 06/27/25 19:21 Total Protein 6.4 g/dL (6.6-8.7) L 06/27/25 17:36 Albumin 3.8 g/dL (3.5-5.2) 06/27/25 17:36 Globulin 2.6 g/dL (1.3-4.6) 06/27/25 17:36 Lipase 17 U/L (13-60) 06/27/25 17:36 Urine Color Yellow (Yellow) 06/27/25 16:31 Urine Appearance Clear (CLEAR) 06/27/25 16:31 Urine pH 6.0 (5-7) 06/27/25 16:31 Ur Specific [place] 1.021 (1.005-1.030) 06/27/25 16:31 Urine Protein Negative (Negative) 06/27/25 16:31 Urine Glucose (UA) Negative (Normal) 06/27/25 16:31 Urine Ketones Negative (Negative) 06/27/25 16:31 Urine Blood Negative (Negative) 06/27/25 16:31 Urine Nitrate Negative (Negative) 06/27/25 16: Urine Bilirubin Negative (Negative) 06/27/25 16:31 Urine Urobilinogen 1.0 mg/dL (Negative) 06/27/25 16:31 Ur Leukocyte Esterase Negative (Negative) 06/27/25 16:31 Urine RBC 0-2 /hpf (0-2) 06/27/25 16:31 Urine WBC 0-5 /hpf (0-5) 06/27/25 16:31 Ur Squamous Epith Cells 0-5 /hpf (0-5) 06/27/25 16:31 Amorphous Sediment Not Reportable 06/27/25 16:31 Urine Bacteria None seen /hpf (NONE) 06/27/25 16:31 Hyaline Casts 0-4 /lpf H 06/27/25 16:31 Discharge Plan Discharge Patient Disposition: Placed in Observation Clinical Impression: Pulmonary embolism Qualifiers: Pulmonary embolism type: unspecified Chronicity: acute Acute cor pulmonale presence: without acute cor pulmonale Qualified Code(s): I26.99 - Other pulmonary embolism without acute cor pulmonale Coding Level of Care Code ED Stator Plate Washer for Elo Harris
[2025-06-27 17:58] LABS: Troponin(5th) Baseline 23 ng/L (0-15)
[2025-06-27 18:00] LABS: Alanine Aminotransferase 12 U/L (0-41); Albumin Level 3.8 g/dL (3.5-5.2); Alkaline Phosphatase 36 U/L (40-130); Aspartate Amino Transferase 17 U/L (0-40); Chloride 100 mmol/L (98-107); Globulin 2.6 g/dL (1.3-4.6); Glucose 109 mg/dL (65-115); Potassium 4.7 mmol/L (3.5-5.1); Sodium 136 mmol/L (136-145); Total Protein 6.4 g/dL (6.6-8.7)
--- NOTE | 2025-06-27 18:01 | CTR_ITS ---
PROCEDURE INFORMATION: Exam: CTA Abdomen and Pelvis With Contrast Exam date and time: 06/27/2025 6:41 PM Age: 75 years old Clinical indication: Pain and abnormal findings; Abnormal lab test; Elevated d-dimer; Abdominal pain; Localized; Right upper quadrant (ruq); Prior surgery; Surgery date: 6+ months; Surgery type: Hernia repair. Lumbar fusion. Turp. Chest pain and ruq pain with SOB and dimer of 3.23. ; Additional info: Cp, SOB, elevated dimer, abd pain TECHNIQUE: Imaging protocol: Computed tomographic angiography of the abdomen and pelvis with contrast. Exam focused on the arteries. 3D rendering (Not supervised by radiologist): MIP and/or 3D reconstructed images were created by the technologist. Radiation optimization: All CT scans at this facility use at least one of these dose optimization techniques: automated exposure control; mA and/or kV adjustment per patient size (includes targeted exams where dose is matched to clinical indication); or iterative reconstruction. Contrast material: OMNI 350; Contrast volume: 100 ml; Contrast route: INTRAVENOUS (IV); COMPARISON: CT abdomen pelvis w con* [id number] 02/24/2025 10:50 PM RADIATION DOSE METRICS: Total DLP (mGy-cm): 1334.49 FINDINGS: Pulmonary arteries: CT chest dictated separately showing acute pulmonary embolus. Aorta: No aortic aneurysm. No aortic dissection. Celiac and mesenteric arteries: No occlusion or significant stenosis. Renal arteries: No occlusion or significant stenosis. Right iliac arteries: No occlusion or significant stenosis. Left iliac arteries: No occlusion or significant stenosis. Liver: No mass. Gallbladder and biliary ducts: Unremarkable. No calcified stones. No ductal dilation. Pancreas: Unremarkable. No mass. No ductal dilation. Spleen: Unremarkable. No splenomegaly. Adrenal glands: Unremarkable. No mass. Kidneys and ureters: Too small to characterize renal cysts similar to prior 02/24/2025. No hydronephrosis or hydroureter. Stomach and bowel: Diverticulosis most prominent in the sigmoid colon without evidence of diverticulitis. Appendix: The appendix is normal. Intraperitoneal space: Unremarkable. No free air. No significant fluid collection. Lymph nodes: Unremarkable. No enlarged lymph nodes. Urinary bladder: Unremarkable. No mass. Reproductive: Enlarged prostate gland with circumferential thickening of the bladder. Bones/joints: Posterior spinal fusion hardware L3-S1. Laminectomy. Hardware intact. Degenerative changes of the thoracolumbar spine. Soft tissues: Unremarkable. CT/[facility] [id number] IMPRESSION: 1. CT chest dictated separately showing acute pulmonary embolus. 2. No acute abnormality in the abdomen or pelvis. 3. Enlarged prostate gland with circumferential thickening of the bladder. 4. Diverticulosis most prominent in the sigmoid colon without evidence of diverticulitis.
[2025-06-27 18:18] LABS: Anion Gap 15.6 (5-19); Blood Urea Nitrogen 24 mg/dL (8-23); Calcium 8.9 mg/dL (8.5-10.5); Carbon Dioxide 25 mmol/L (22-29); Creatinine Clr Calc Pharmacy 60.6828; Lipase 17 U/L (13-60); Osmolality Calculated 289 mOsm/kg (285-295)
[2025-06-27] MEDS: iohexol 350 mg/mL 500 mL Btl (per mL) IV (18:49)
--- NOTE | 2025-06-27 19:35 | PM.HP ---
Providers/Chief Complaint Admitting Physician: Zulema Her MD Primary Care Provider: Jaylan Montero DO Chief Complaint: SOB Pain in shoulders History of Present Illness As per the previous notes and the patient Naresh Carmona is a 75 year old male with PMH of HTN, DM, anxiety/depression, h/o past surgical histories, presented to the ER with sob and was complaining of chest pain. He states that he was feeling anxious and was feeling sob associated with chest pain from the last 2 days. The patient pain started along the right side lateral part of his body starting from right groin and was going up to his neck. And felt like a vein stretching. It was not deep and no radiation to back, aggravated with deep inspiration. No chest pressure, chest pain, diaphoresis or any associated presyncope or syncope. No recent leg swellings no recent prolonged bedrest, prolonged travel history or any history of cancers in the past or family history of blood disorders. No history of fevers, night sweats or weight loss. Rest of the review of system is unremarkable Review of Systems General: Reports: 10 or more systems reviewed and unremarkable except in HPI and below Medications/Allergies Home Medications ?Medication ?Instructions ?Recorded ?Confirmed ?Last Taken ?Type insulin degludec 100 unit/mL 40 unit SUBCUT QAM 12/13/20 06/25/24 06/24/24 History subcutaneous solution (Tresiba U-100 Insulin) insulin aspart U-100 100 unit/mL 22 - 28 unit SUBCUT .TID PER 03/28/22 06/25/24 06/24/24 History (3 mL) subcutaneous pen (Novolog SLIDING SCA FlexPen U-100 Insulin aspart) sildenafil 100 mg tablet 50 - 100 mg (0.5 - 1 x 100 mg) PO 10/26/22 06/25/24 Unknown Rx DAILY PRN sexual activity #30 tabs pregabalin 75 mg capsule (Lyrica) 75 mg PO BID neuropathy pain #60 12/25/23 12/30/24 06/24/24 Rx caps amoxicillin 875 mg-potassium 1 tab PO BID respiratory infection 06/23/24 06/25/24 06/24/24 Rx clavulanate 125 mg tablet #20 tabs ciprofloxacin HCl 500 mg tablet 500 mg PO BID #14 tabs 06/25/24 Unknown Rx (Cipro) dorzolamide 22.3 mg-timolol 6.8 1 drp ophthalmic (eye) BID 06/25/24 06/25/24 Unknown History mg/mL eye drops fenofibrate micronized 134 mg 134 mg PO DAILY 06/25/24 12/30/24 06/24/24 History capsule hydrocodone 5 mg-acetaminophen 325 1 tab PO Q6H PRN pain #14 tabs 06/25/24 Unknown Rx mg tablet lidocaine 5 % topical gel See Rx Instructions .Route 06/25/24 06/25/24 Unknown History .COMPLEX PRN Pain lisinopril 10 mg tablet 10 - 20 mg PO DAILY blood pressure 06/25/24 12/30/24 06/24/24 History ondansetron 4 mg disintegrating 4 mg PO Q6H PRN nausea and 06/25/24 Unknown Rx tablet vomiting #14 tabs trazodone 100 mg tablet 100 mg PO BEDTIME 06/25/24 12/30/24 06/24/24 History metoprolol tartrate 25 mg tablet 25 mg PO BID #60 tabs 09/01/24 12/30/24 Unknown Rx prednisone 10 mg tablet See Rx Instructions PO DAILY #45 02/02/25 Unknown Rx tabs hydrocodone 10 mg-acetaminophen 1 tab PO Q4H PRN pain 15 days #90 02/13/25 06/18/25 Unknown Rx 325 mg tablet tabs diazepam 5 mg tablet (Valium) 5 mg PO Q8H PRN muscle spasm #9 02/24/25 Unknown Rx tabs amoxicillin 875 mg-potassium 1 tab PO BID GI infection #20 tabs 03/13/25 03/13/25 Unknown Rx clavulanate 125 mg tablet naloxegol 25 mg tablet 25 mg PO QAM constipation #30 tabs 03/13/25 06/02/25 Unknown Rx atorvastatin 80 mg tablet See Rx Instructions .Route 06/01/25 Unknown Rx .COMPLEX #90 tabs naloxegol 25 mg tablet 25 mg PO QAM constipation #30 tabs 06/02/25 06/02/25 Unknown Rx venlafaxine 75 mg capsule,extended 75 mg PO DAILY moods #30 caps 06/02/25 06/18/25 Unknown Rx release 24 hr Held on 06/18/25. Instructions: Dose Change bupropion HCl 300 mg 24 hr tablet, 300 mg PO QAM moods #30 tabs 06/18/25 06/18/25 Unknown Rx extended release fentanyl 100 mcg/hr transdermal 1 patch transdermal Q72H DJD of 06/18/25 06/18/25 Unknown Rx patch cervical spine 30 days #10 ea Allergies Allergy/AdvReac Type Severity Reaction Status Date / Time diazepam (From Valium) AdvReac ADR-Agitate Verified 06/27/25 15:37 d PFSH Acute PFSH: Medical History (Updated 06/27/25 @ 19:36 by SHAY Shell) HTN (hypertension) Hyperlipidemia Diabetes mellitus Hx of diverticulitis of colon Surgical History (Updated 06/27/25 @ 19:39 by Zulema Her MD) History of back surgery S/P wrist surgery S/P shoulder surgery S/P hernia surgery History of elbow surgery S/P eye surgery Hx of transurethral resection of prostate Family History Mother , IN HER EARLY 70'S CAD (coronary artery disease) Father , AT AGE 74 LUNG Cancer Social History Smoking and tobacco/nicotine status: never used tobacco/nicotine Alcohol intake: never Marital status: Current occupational status: retired Vitals/I&O/Wt Last Vital Signs Temp 98.2 F 06/27/25 15:33 Pulse 79 06/27/25 17:37 Resp 16 06/27/25 15:33 BP 139/81 06/27/25 17:37 Pulse Ox 99 06/27/25 17:37 O2 Del Method Room Air 06/27/25 15:33 Weight last 48 hrs Weight 102.058 kg Physical Exam Narrative: General: Alert and oriented, lying comfortably without any distress HEENT: Normocephalic, atraumatic, grossly unremarkable exam Cardio: normal rate rhythm, normal S1-S2 without any murmurs, rubs, or gallops and JVD normal Respiratory: normal vascular breathing on auscultation without any wheezes, stridor, rhonchi GI: Abdomen soft, nontender, nondistended, normoactive bowel sounds present all 4 quadrants, Neuro: intact cranial nerves motor and sensory and cerebellar/coordination function without any focal neurological deficit Behavior: Appropriate and cooperative Extremities: Adequate palpable pulses, no edema in both extremities are equal in size Data 06/27/25 17:36 06/27/25 17:36 A&P Assessment and plan 1. Pulmonary embolism: Patient pulmonary embolism severity index PESI around 85 which likely a low risk PE, no troponin leak, no hemodynamic instability. Eliquis 10 mg twice daily and later after 7 days to start on 5 mg twice daily Still unsure what is the provoking factor, and thrombophilia workup in this age is less likely to reveal any thrombophilia disorder, no malignancy history and no family history of blood disorders? Continue to monitor hemodynamics Telemetry monitoring Serial EKGs and troponins Echo TSH 2. Diabetes mellitus: Patient on 44 units of insulin at home, to resume 20 units as inpatient with diabetic diet, Patient takes 25-26 premeals, to initiate insulin sliding scale at medium dose 3. HTN (hypertension): Currently stable blood pressure, patient on lisinopril 10 to 20 mg daily based on blood pressure To confirm and reconcile and to initiate accordingly 4. Hyperlipidemia: On atorvastatin 80 mg as per review of home medication, to resume after reconciliation 5. Depression: Patient taking trazodone 100 mg at bed time Venlafaxine 75 mg daily Bupropion 300 mg daily Resume after reconciliation 6. Acute anxiety: As mentioned above Diazepam 5 mg p.o. every 8 as indicated for muscle spasm, it has prescribed to the patient as home medication To resume after reconciliation 7. Cervical radiculopathy: Patient on pregabalin 75 mg twice daily To resume after reconciliation Adequate analgesia to be provided based on pain scale 8. Neuropathy: As mentioned above Adequate analgesia to provide based on pain scale PDMP PDMP Reviewed: Not Reviewed Attestations Medical Necessity Statement*: Patient will stay overnight for the management of low risk PE with anticoagulation and to observe for any further deterioration versus clinical stability to establish before discharge Time Spent in Patient Care: 16 - 35 minutes (>than 50% of time spent in counselling and/or direct pt care on unit). Other Attestations: Patient condition has been discussed at length with the patient/family, I have independently reviewed the chart labs imaging/diagnostics/EKG. the goals of care and code status with the patient/family/NOK/legal territory representative, and documented accordingly. The management has been done according to the current clinical condition with respect to patient goals of care and based on recommendations/guidelines. The patient/family has been informed about the current condition and further plan of care. Agreed with the plan of care and understood without any language barrier. Every effort was made to ensure accuracy of ethylbenzene cracking supervisor. Any obvious errors or omissions should be clarified with the author of the document. Coding Level of Care Code Acute Code for Chg Fwd Diagnoses Pulmonary embolism I26.99 Diabetes mellitus E11.9 HTN (hypertension) I10 Hyperlipidemia E78.5 Depression F32.A Acute anxiety F41.9 Cervical radiculopathy M54.12 Neuropathy G62.9
[2025-06-27 19:45] LABS: Troponin 5 2HR 22.50 ng/L (0-15)
[2025-06-27 19:55] LABS: Troponin 5 2HR Delta -0.50 ABS# (0-10)
[2025-06-27 20:16] VITALS: BP 107/59; PULSE 90; O2SAT 93
[2025-06-27 20:18] LABS: Magnesium 1.9 mg/dL (1.7-2.3); NT Pro B Type Natriuretic Pept 211 pg/mL (0-450); Thyroid Stimulating Hormone 0.72 uIU/mL (0.27-4.20)
--- NOTE | 2025-06-27 21:17 | ECG_ITS ---
[facility] Test Date: 2025-06-27 Pat Name: Naresh Carmona Department: Room: 107 Gender: Male Home Demonstration Agent: : 1950 Requested By: Carlos Prakash Order Number: [id number] Aaliyah MD: Olivia Hoffmann M.D. Measurements Intervals [place] Rate: 82 P: 55 MD: 174 QRS: -48 QRSD: 108 T: 75 QT: 375 QTc: 441 Interpretive Statements SINUS RHYTHM LEFT ANTERIOR FASCICULAR BLOCK [QRS AXIS <= -45, QR IN I, RS IN II] NONSPECIFIC T-WAVE ABNORMALITY Compared to ECG 06/27/2025 17:58:45 T-wave abnormality now present Electronically Signed On 06-28-2025 20:20:14 JOB SETTER HONING by Olivia Hoffmann M.D. [id number]
[2025-06-27 21:18] VITALS: BP 140/79; PULSE 83; O2SAT 95
[2025-06-27 21:21] VITALS: BP 140/79; PULSE 83; O2SAT 95
--- NOTE | 2025-06-27 22:41 | ECG_ITS ---
[facility] Date: 2025-06-27 Pat Name: Naresh Carmona Department: Room: 107 Gender: Male Barrel Builder: : 1950 Requested By: Zulema Her Order Number: [id number] Aaliyah MD: Olivia Hoffmann M.D. Measurements Intervals [place] Rate: 79 P: 48 NH: 183 QRS: -44 QRSD: 111 T: 65 QT: 379 QTc: 437 Interpretive Statements SINUS RHYTHM LEFT AXIS DEVIATION [QRS AXIS < -30] MODERATE INTRAVENTRICULAR CONDUCTION DELAY [110+ ms QRS DURATION] Compared to ECG 06/27/2025 21:17:36 Left-axis deviation now present Intraventricular conduction delay now present Left anterior fascicular block no longer present T-wave abnormality no longer present Electronically Signed On 06-28-2025 20:20:04 SUB PRIOR by Olivia Hoffmann M.D. [id number]
[2025-06-27 23:50] VITALS: BP 117/61; PULSE 79; RESP 16; TEMP 36.7; O2SAT 95
[2025-06-28 00:01] LABS: Troponin 5 6HR 25.99 ng/L (0-15); Troponin 5 6HR Delta 2.99 ng/L (0-12)
[2025-06-28 04:00] VITALS: BP 126/63; PULSE 81; RESP 24; O2SAT 92
[2025-06-28 04:11] LABS: Hematocrit 35.3 % (37-53); Hemoglobin 11.40 g/dL (11.27-16.99); Mean Corpuscular HGB Conc 32.3 g/dL (30-55); Mean Corpuscular Hemoglobin 30.4 pg (27-33); Mean Corpuscular Volume 94.1 fl (82-101); Nucleated Red Blood Cells % 0 %; Platelet Count 185 10^3/cmm (157-399); Red Blood Count 3.75 10^6/uL (3.85-5.65); White Blood Count 8.69 10^3/uL (3.29-11.43)
--- NOTE | 2025-06-28 04:38 | ECG_ITS ---
[facility] Date: 2025-06-28 Pat Name: Naresh Carmona Department: Room: 107 Gender: Male Spooler Operator: : 1950 Requested By: Zulema Her Order Number: [id number] Fischer MD: Olivia Hoffmann M.D. Measurements Intervals [place] Rate: 83 P: 34 TN: 188 QRS: -38 QRSD: 110 T: 60 QT: 375 QTc: 441 Interpretive Statements SINUS RHYTHM WITH OCCASIONAL SUPRAVENTRICULAR PREMATURE COMPLEXES LEFT AXIS DEVIATION [QRS AXIS < -30] NONSPECIFIC T-WAVE ABNORMALITY Compared to ECG 06/27/2025 22:41:02 T-wave abnormality now present Intraventricular conduction delay no longer present Electronically Signed On 06-28-2025 20:19:24 FINANCIAL ANALYST by Olivia Hoffmann M.D. [id number] [id number]
[2025-06-28] MEDS: venlafaxine ER (24HR) 75 mg Capsule PO (04:40)
[2025-06-28 04:47] LABS: Alanine Aminotransferase 12 U/L (0-41); Albumin Level 3.8 g/dL (3.5-5.2); Alkaline Phosphatase 36 U/L (40-130); Anion Gap 14.7 (5-19); Aspartate Amino Transferase 16 U/L (0-40); Blood Urea Nitrogen 28 mg/dL (8-23); Calcium 8.9 mg/dL (8.5-10.5); Carbon Dioxide 24 mmol/L (22-29); Chloride 102 mmol/L (98-107); Creatinine Clr Calc Pharmacy 55.4563; Globulin 2.7 g/dL (1.3-4.6); Glucose 106 mg/dL (65-115); Osmolality Calculated 290 mOsm/kg (285-295); Potassium 3.7 mmol/L (3.5-5.1); Sodium 137 mmol/L (136-145); Total Protein 6.5 g/dL (6.6-8.7)
[2025-06-28 06:00] VITALS: BMI 29.5
[2025-06-28 08:00] VITALS: BP 130/59; PULSE 78; RESP 14; TEMP 36.7; O2SAT 95
--- NOTE | 2025-06-28 08:54 | USR_ITS ---
PROCEDURE INFORMATION: Exam: US Duplex Lower Extremity Veins, Bilateral Exam date and time: 06/28/2025 10:30 AM Age: 75 years old Clinical indication: Screening exam; Check for dvt TECHNIQUE: Imaging protocol: Real-time duplex ultrasound of the bilateral extremities with 2-D tapia scale, color Doppler flow and spectral waveform analysis including responses to compression and other maneuvers (when performed) with image documentation. Complete exam focused on the lower extremity veins. COMPARISON: CT ang ches abdpel [id number] 06/27/2025 6:41 PM FINDINGS: Right deep veins: Partially occlusive thrombus is seen within the right popliteal and peroneal veins. Remaining deep veins of the right lower extremity appear patent. Left deep veins: Unremarkable. The common femoral, femoral, proximal profunda femoral and popliteal veins are patent without thrombus. Normal Doppler waveforms. Normal compressibility and/or augmentation response. Superficial veins: Greater saphenous veins at the saphenofemoral junctions are patent bilaterally without thrombus. Soft tissues: Unremarkable. US/CV venous duplex [facility] [id number] IMPRESSION: Deep vein thrombosis within the right popliteal and peroneal veins.
[2025-06-28 11:44] VITALS: PULSE 92; RESP 20; O2SAT 93
[2025-06-28 12:00] VITALS: BP 131/71; PULSE 92; RESP 21; O2SAT 93
[2025-06-28] MEDS: insulin glargine 100 units/1 mL 10 UNIT SUBCUT (12:12)
--- NOTE | 2025-06-28 15:53 | P.PN_ITS ---
Subjective 2 Subjective: - Patient denies any recent weight loss, no fevers, no chills, no recent immobility, no recent surgeries, no recent travel - He does report a history of diverticul osis, does report prior history of bloody stools, no active bloody stools Vitals/I&O/Wt Last Vital Signs Temp 98.0 F 06/28/25 08:00 Pulse 92 06/28/25 12:00 Resp 21 H 06/28/25 12:00 BP 131/71 06/28/25 12:00 Pulse Ox 93 06/28/25 12:00 O2 Del Method Room Air 06/28/25 11:44 06/28/25 06/28/25 06/28/25 06:59 14:59 22:59 Intake Total 440 / 440 Output Total 200 / 200 Balance -200 / -200 440 / 440 Weight last 48 hrs Weight 98.7 kg Weight 98.6 kg Weight 102.058 kg Physical Exam 2 Const: COMMON NORMALS: no acute distress and patient oriented x3 Eye: COMMON NORMALS: Equal, round and reactive pupils present PUPIL: Yes Equal, round and reactive pupils present Lymph: OTHER: Has multinodular goiter, left neck cervical lymph node enlargement Resp: COMMON NORMALS: normal respiratory effort, No retractions, No use of accessory muscles and clear to auscultation bilaterally AUSCULTATION: clear to auscultation bilaterally Cardio: COMMON NORMALS: regular rate, regular rhythm, S1 normal heart sound present and S2 normal heart sound present RATE: regular rate RHYTHM: r egular rhythm HEART SOUNDS: S1 normal heart sound present and S2 normal heart sound present GI: COMMON NORMALS: Normal to inspection, nondistended, normoactive bowel sounds present and non-tender Extremity: COMMON NORMALS: no pedal edema Neuro: COMMON NORMALS: patient oriented x3, CN's II-XII intact bilaterally and moves all extremities Psych: COMMON NORMALS: mental status grossly normal Data 06/28/25 03:27 06/28/25 03:27 A&P Assessment and plan 1. Pulmonary embolism: 2. Diabetes mellitus: 3. HTN (hypertension): 4. Hyperlipidemia: 5. Depression: Patient taking trazodone 100 mg at bed time Venlafaxine 75 mg daily Bupropion 300 mg daily Resume after reconciliation 6. Acute anxiety: 7. Cervical radiculopathy: 8. Neuropathy: Plan: Acute pulmonary emboli at the distal right main pulmonary artery, extending to middle segmental pulmonary artery, interlobar artery CT/CT [facility] [id number] Chest CTA: 1. Acute pulmonary emboli at the distal right main pulmonary artery extending into the middle segmental pulmonary artery and interlobar artery and basal sub segmental aspects on the right. LV to RV ratio of 0.9. No evidence of significant right heart strain. 2. Consolidation in the right lower lobe which is nonspecific but can be seen in pneumonia. 3. Small right pleural effusion. - US/[place] [id number] IMPRESSION: Deep vein thrombosis within the right popliteal and peroneal veins. Mechanical CONCLUSIONS Normal LV size with an ejection fraction of 55%. Mild concentric left ventricular hypertrophy.Grade I/IV diastolic dysfunction (abnormal relaxation filling pattern), normal to mildly elevated filling pressures. Mild aortic valve stenosis, mean gradient 3.8 mmHg, ANGÉLICA 2 cm squared. Trace to mild aortic valve regurgitation. Normal RV size ejection fraction with no evidence of RV strain There is no pericardial effusion. There are no intracardiac masses. Compared to the study from 05/16/2022 the aortic valve stenosis appears to be new - Reports history of GI bleed in the past secondary to diverticulosis? Plan - Will monitor in the hospital for 24 to 48 hours - Monitor hemoglobin closely - Switch to therapeutic Lovenox - Does have enlarged thyroid, with enlarged cervical lymph nodes will do ultrasound of the neck Type 2 diabetes mellitus - Lantus 10 units daily - Moderate dose sliding scale Chronic pain, resume home fentanyl patch, Valium, Lyrica Hypertension resume blood pressure medications PDMP PDMP Reviewed: Not Reviewed Attestations 2 Medical Necessity Statement*: Patient requires hospitalization for pulmonary embolism, DVT, inpatient, greater than 2 midnights Diagnoses Pulmonary embolism I26.99 Diabetes mellitus E11.9 HTN (hypertension) I10 Hyperlipidemia E78.5 Depression F32.A Acute anxiety F41.9 Cervical radiculopathy M54.12 Neuropathy G62.9
[2025-06-28 16:00] VITALS: BP 143/66; PULSE 102; RESP 18; O2SAT 92
[2025-06-28] MEDS: cefTRIAXone 1,000 mg SDV 1000 MG IVP (17:54)
[2025-06-28] MEDS: polyethylene glycol 3350 Pkt 17 gm PO (19:19)
--- NOTE | 2025-06-28 19:33 | USCV_ITS ---
Naersh Carmona Age: 75 Gender: M : 1950 Exam Date: 06/28/2025 07:44 Ordering Phys: Zulema Her MD Technologist: ROCIO Exam Location: [facility] – [place] Indication: PE and to look for RV strain or dilation BP: 130 / 59 HR: 87 Rhythm: Sinus Technical Quality: Adequate MEASUREMENTS (Male / Female) Normal Values 2D ECHO LV Diastolic Diameter PLAX 4.8 cm 4.2 - 5.9 / 3.9 - 5.3 cm IVS Diastolic Thickness 0.9 cm 0.6 - 1.0 / 0.6 - 0.9 cm IVS Systolic Thickness 1.1 cm LVPW Diastolic Thickness 0.9 cm 0.6 - 1.0 / 0.6 - 0.9 cm LVPW Systolic Thickness 1.3 cm LVOT Diameter 2.1 cm LV Ejection Fraction 2D Teich 64.6 % LV Ejection Fraction MOD 4C 62.5 % LV Ejection Fraction MOD 2C 53.9 % LV Ejection Fraction 2C AL 54.3 % LA Diameter 3.5 cm RA Systolic Volume 4C AL 43.5 ml RA Systolic Volume 4C MOD 40.2 ml LA Sys Volume AL 59.8 cm cubed LA Sys Volume Index AL 26.5 cm cubed/m squared Aorta at Sinotubular Diameter 2.7 cm M-MODE LA Ao Ratio MM 1.2 AV Cusp Separation MM 1.9 cm DOPPLER AV Peak Velocity 260.3 cm/s LVOT Peak Velocity 72.0 cm/s AV Area Cont Eq vti 2.0 cm squared AV Area Cont Eq pk 0.9 cm squared MV Peak Velocity 100.0 cm/s MV Area PHT 5.1 cm squared Mitral E to A Ratio 1.0 TR Peak Velocity 305.0 cm/s TR Peak Gradient 37.2 mmHg TR Mean Velocity 213.0 cm/s TR Mean Gradient 20.8 mmHg TR Velocity Time Integral 52.6 cm PV Peak Velocity 92.7 cm/s RV Ejection Time 0.3 s FINDINGS Left Ventricle Normal LV size with an ejection fraction of 55%. Mild concentric left ventricular hypertrophy.Grade I/IV diastolic dysfunction (abnormal relaxation filling pattern), normal to mildly elevated filling pressures. Right Ventricle Normal right ventricular size and systolic function. Right Atrium Appears to be of normal size Left Atrium Normal left atrial size. IA Septum Appears to be intact Mitral Valve Trace mitral valve regurgitation. Aortic Valve Mild aortic valve stenosis, mean gradient 3.8 mmHg, ANGÉLICA 2 cm squared. Trace to mild aortic valve regurgitation. Tricuspid Valve No gross abnormalities noted Pulmonic Valve No gross abnormalities noted Pericardium No pericardial effusion. Aorta Normal aortic annulus size. IVC Inferior vena cava not visualized. CONCLUSIONS Normal LV size with an ejection fraction of 55%. Mild concentric left ventricular hypertrophy.Grade I/IV diastolic dysfunction (abnormal relaxation filling pattern), normal to mildly elevated filling pressures. Mild aortic valve stenosis, mean gradient 3.8 mmHg, ANGÉLICA 2 cm squared. Trace to mild aortic valve regurgitation. Normal RV size ejection fraction with no evidence of RV strain There is no pericardial effusion. There are no intracardiac masses. Compared to the study from 05/16/2022 the aortic valve stenosis appears to be new Dr Olivia Hoffmann MD [facility] (Electronically Signed) Final Date: 28 June 2025 10:15 S
[2025-06-28 20:00] VITALS: BP 132/74; PULSE 99; RESP 16; TEMP 36.6
[2025-06-29] VITALS: BP 119/63; PULSE 88; RESP 19; TEMP 36.7
[2025-06-29 03:12] LABS: Hematocrit 31.7 % (37-53); Hemoglobin 10.40 g/dL (11.27-16.99); Mean Corpuscular HGB Conc 32.8 g/dL (30-55); Mean Corpuscular Hemoglobin 30.7 pg (27-33); Mean Corpuscular Volume 93.5 fl (82-101); Nucleated Red Blood Cells % 0 %; Platelet Count 166 10^3/cmm (157-399); Red Blood Count 3.39 10^6/uL (3.85-5.65); White Blood Count 9.36 10^3/uL (3.29-11.43)
[2025-06-29 03:49] LABS: Alanine Aminotransferase 14 U/L (0-41); Albumin Level 3.4 g/dL (3.5-5.2); Alkaline Phosphatase 35 U/L (40-130); Anion Gap 14.0 (5-19); Aspartate Amino Transferase 19 U/L (0-40); Blood Urea Nitrogen 28 mg/dL (8-23); Calcium 8.3 mg/dL (8.5-10.5); Carbon Dioxide 23 mmol/L (22-29); Chloride 100 mmol/L (98-107); Creatinine Clr Calc Pharmacy 55.4821; Globulin 2.7 g/dL (1.3-4.6); Glucose 114 mg/dL (65-115); Magnesium 2.1 mg/dL (1.7-2.3); Osmolality Calculated 282 mOsm/kg (285-295); Potassium 4.0 mmol/L (3.5-5.1); Sodium 133 mmol/L (136-145); Total Protein 6.1 g/dL (6.6-8.7)
[2025-06-29 03:55] VITALS: BP 124/58; PULSE 79; RESP 20; TEMP 36.4
[2025-06-29] MEDS: venlafaxine ER (24HR) 75 mg Capsule PO (05:23)
[2025-06-29 07:13] VITALS: BP 104/59; PULSE 70; RESP 20; TEMP 36.6; O2SAT 93
--- NOTE | 2025-06-29 09:00 | PC.CHAP ---
Pastoral Care Encounter/Spiritual Assessment Type of Contact [] Declined retinal surgeon visit [] Patient/Family/Request visit [] Outpatient visit [] Follow-up visit [] Physician referral [] Code/Alert [x] Routine visit [] Staff referral [] Actively dying [] Patient sleeping [] Family support [] [] Out of room [] Palliative care [] [x] Receiving care in room [] Pre-surgical visit [] Trauma [] Long length of stay [] ICU visit [] Other: Relational/Emotional Strength [] Patient feels connected with others/family/visitors/staff [] Distress [] Loneliness/isolation [] Abandonment Spirituality of Patient [] Person of Dana [] Attends Confucianist of their Dana [] Believes in Prayer [] Reads Bible or Confucianist materials [] There are Spiritual issues to be addressed Chemical Engineer Interventions [x] Prayer [] Active listening [] Non-anxious presence [] Spiritual/emotional support [] Crisis/trauma care [] Spiritual counseling [] Bereavement support [] Provided bereavement packet [] Provided Bible/devotional materials [] Provided toy/stuffed animal, coloring book to patient or family member [] Provided Communion [] Anointing/[place] [] Salvation [] Completed spiritual assessment [] Other: Impact on Illness or Injury [] Angry [] Fearful [] Anxious [] Often cries [] Exhaustion [] Unable to work [] Unable to attend judaism [] Unable to walk/stand [] Unable to read [] Unable to drive [] Unable to eat/drink [] Unable to sleep [] Unable to be with family [] Patient intubated [] Other: Summary Time spent with patient
[2025-06-29] MEDS: insulin glargine 100 units/1 mL 10 UNIT SUBCUT (10:34)
--- NOTE | 2025-06-29 10:47 | PM.DCS ---
Discharge Providers Date of Admission: 06/28/25 16:05 Date of Discharge: June 29, 2025 Attending Provider at Admission: Zulema Her MD Attending Provider at Discharge: Sebastien Domingo MD Primary Care Provider: Jaylan Montero DO Diagnoses at Discharge Discharge Diagnosis 1. Pulmonary embolism: 2. Acute anxiety: 3. Type 2 diabetes mellitus without complication, with long-term current use of insulin: 4. Primary hypertension: 5. Hyperlipidemia, unspecified hyperlipidemia type: 6. Depression, unspecified depression type: 7. Cervical radiculopathy: 8. Neuropathy: Reason for Visit Reason for Visit: SOB Pain in shoulders Hospital Course Hospital Course Patient is a 75-year-old male who presented with apparent atypical chest pain. Further imaging diagnostics revealed apparent acute pulmonary embolism with no obvious right heart strain. Was started on some Lovenox, while he was monitored closely. Other chronic medical problems were treated with her medications, as adjusted. Other associated symptoms were treated empirically. Given findings of pulmonary infiltrates, suspected to be due to pneumonia, he was started on some IV antibiotics. As of this morning, patient remained is asymptomatic, with no requirement of oxygen. Given stable symptoms, he is therefore discharged today on oral Eliquis. See my discharge orders and discharge instructions for more details. Physical Exam Narrative: General: Awake and alert patient. No overt distress. Chest: Clinically clear. CVS: Regular rhythm, regular heart rate. No obvious murmurs. Other physical findings as EXTR with normal limits. Discharge Data Studies Completed and Pending Completed Studies During Hospitalization Category Date Time Status CTA chest abdomen pelvis [CT ang ches abdpel 65852/ Cat Scan 06/27/25 18:01 Completed 90772] Stat XR chest 1V portable [id number] Stat Exams 06/27/25 17:27 [place] [id number] Routine Ultrasound 06/28/25 08:54 Completed CV. echo complete* [id number] Stat Ultrasound 06/28/25 19:33 Completed Pending at discharge Category [place] [id number] Routine Ultrasound 06/29/25 15:51 Ordered Radiology Impressions Chest X-Ray 06/27/25 17:27 IMPRESSION: 1. No acute intrathoracic abnormality. 2. Hypoinflated lungs. 3. Dilated bowel loops incompletely visualized on this examination. Chest/Abdomen/Pelvis CTA 06/27/25 18:01 IMPRESSION: 1. CT chest dictated separately showing acute pulmonary embolus. 2. No acute abnormality in the abdomen or pelvis. 3. Enlarged prostate gland with circumferential thickening of the bladder. 4. Diverticulosis most prominent in the sigmoid colon without evidence of diverticulitis. ADDENDUM: 06/27/251925 to Chest CTA: 1. Acute pulmonary emboli at the distal right main pulmonary artery extending into the middle segmental pulmonary artery and interlobar artery and basal sub segmental aspects on the right. LV to RV ratio of 0.9. No evidence of significant right heart strain. 2. Consolidation in the right lower lobe which is nonspecific but can be seen in pneumonia. 3. Small right pleural effusion. Venous Duplex 06/28/25 08:54 IMPRESSION: Deep vein thrombosis within the right popliteal and peroneal veins. Vitals Last Vital Signs Temp 97.8 F 06/29/25 07:13 Pulse 70 06/29/25 07:13 Resp 20 H 06/29/25 07:13 BP 104/59 06/29/25 07:13 Pulse Ox 93 06/29/25 07:13 O2 Del Method Room Air 06/28/25 11:44 Discharge Plan Discharge Patient Disposition: Home Condition: Stable Prescriptions: New [employer]is DVT-PE Treat 30D Start 5 mg (74 tabs) tablets,dose pack See Rx Instructions .ROUTE .COMPLEX Qty: 74 1RF Rx Instructions: orally per package directions doxycycline hyclate 100 mg capsule 100 mg PO BID 5 Days Qty: 10 0RF Continued Tresiba U-100 Insulin 100 unit/mL solution 40 unit SUBCUT QAM insulin aspart U-100 [Novolog FlexPen U-100 Insulin] 100 unit/mL (3 mL) insulin pen 22 - 28 unit SUBCUT .TID PER SLIDING SCA hydrocodone-acetaminophen 10-325 mg tablet 1 tab PO Q4H PRN (Reason: pain) 15 Days Qty: 90 0RF bupropion HCl 300 mg tablet extended release 24 hr 300 mg PO QAM Qty: 30 1RF fentanyl 100 mcg/hr patch 72 hour 1 patch transdermal Q72H 30 Days Qty: 10 0RF naloxegol 25 mg tablet 25 mg PO QAM Qty: 30 2RF Rx Instructions: must be taken on empty stomach; no food 1 hr after or 2-3 hrs before dose venlafaxine 75 mg capsule,extended release 24hr 75 mg PO DAILY Qty: 30 3RF sildenafil 100 mg tablet 50 - 100 mg PO DAILY PRN (Reason: sexual activity) Qty: 30 5RF Rx Instructions: administer 30 minutes to 4 hours before activity pregabalin [Lyrica] 75 mg capsule 75 mg PO BID Qty: 60 3RF metoprolol tartrate 25 mg tablet 25 mg PO BID Qty: 60 0RF Rx Instructions: PATIENT MUST MAKE APPOINTMENT AND BE SEEN FOR FURTHER REFILLS atorvastatin 80 mg tablet See Rx Instructions .ROUTE .COMPLEX Qty: 90 3RF Dose Instruction: TAKE 1 TABLET BY MOUTH EVERY DAY at night Rx Instructions: TAKE 1 TABLET BY MOUTH EVERY DAY at night diazepam [Valium] 5 mg tablet 5 mg PO Q8H PRN (Reason: muscle spasm) Qty: 9 0RF fenofibrate micronized 134 mg capsule 134 mg PO DAILY dorzolamide-timolol 22.3-6.8 mg/mL drops 1 drp ophthalmic (eye) BID trazodone 100 mg tablet 100 mg PO BEDTIME lisinopril 10 mg tablet 10 mg PO DAILY lidocaine 5 % gel See Rx Instructions .ROUTE .COMPLEX PRN (Reason: Pain) Rx Instructions: Apply to affected painful area up to 4 times daily ondansetron 4 mg tablet,disintegrating 4 mg PO Q6H PRN (Reason: nausea and vomiting) Qty: 14 0RF Discharge Order = DC NOW: Discharge Order (Routine); Ordered 06/29/25 Ordered By: Sebastien Domingo Other Ambulatory Orders: thyroid [id number] (Routine) Timeframe: 1 Week Facility: [facility] - Location: Radiology [facility] Ordered By: Sebastien Domingo Referrals: Jaylan Montero DO [Primary Care Provider, Family Practice] - 07/02/25 12:20 pm Discharge Diet: Diabetic Discharge Activity: Resume usual activity Patient Instructions: Doxycycline (By mouth), Apixaban (By mouth) (Eliquis), Pulmonary Embolism (DC), Hypertension (DC), Pneumonia (DC), Hyperlipidemia (DC), Safe Use of Anticoagulants (DC), Blood Thinners (DC), Deep Vein Thrombosis Prevention (DC), Anticoagulation Therapy, Opioid Safety, Pneumonia Stoplight, Patient Portal & Darin Instructions, Fall Prevention Plan of Treatment: Follow up with your PCP for more adjustment of meds, as may be needed. PCP to further cordinate neck US order. Discharge Attestations Time Spent in Discharge Care*: less than 30 min Quality Metrics Clinical Quality Measures [ Venous Thromboembolism { Contraindication to Overlap Therapy: None; Overlap threrpy ordered; VTE Discharge Education: Education about anticoagulant therapy/Care Notes given;}] Coding Level of Care Code 17043 Diagnoses Pulmonary embolism I26.99 Acute cor pulmonale presence: without acute cor pulmonale Chronicity: acute Pulmonary embolism type: unspecified Acute anxiety F41.9 Type 2 diabetes mellitus without complication, with long-term current use of insulin E11.9; Z79.4 Diabetes mellitus complication status: without complication Diabetes mellitus residential insulin use: with residential use Diabetes mellitus type: type 2 Primary hypertension I10 Hypertension type: primary hypertension Hyperlipidemia, unspecified hyperlipidemia type E78.5 Hyperlipidemia type: unspecified Depression, unspecified depression type F32.A Depression Type: unspecified Cervical radiculopathy M54.12 Neuropathy G62.9
--- NOTE | 2025-06-29 11:17 | PC.NURSE ---
Per ultrasound department, they can't do the US thyroid until this afternoon. Notified Dr. Domingo the hospitalist about this and he said to let the PCP do this as an outpatient test instead. Pt and his informed about this and they were both okay. Informed pt and that he is going to be discharge today.
[2025-06-29 11:55] VITALS: BP 120/68; PULSE 79; RESP 13; O2SAT 92
[2025-06-29 12:54] VITALS: BP 117/52; PULSE 70; O2SAT 94
--- NOTE | 2025-06-29 13:06 | PC.NURSE ---
Discharge to home Pt and were provided with discharge instructions. Educated pt and the new meds doxycycline for his pneumonia, it's dosing and duration. educated pt on Eliquis his blood thinner for DVT&PE and to take it per packet instructions. Educated pt to watch for signs of bleeding being on a blood thinner. Educated pt on signs and symptoms of stroke and bleeding. Informed pt on his pcp appointment and outpatient maciej for his thyroid. Provided pt on Eliquis coupon.
== END 2025-06-29 12:30 | disposition home or self-care (01) | DRG 175 ==
LOC: ER 19:47 → CSU 20:19
PROVIDERS: Family Medicine; Admitting Provider Student in an Organized Health Care Education/Training Program; Emergency Provider Physician Assistant; PCP Family Medicine; Visit Provider Family Medicine
DX: I26.99 Other pulmonary embolism without acute cor pulmonale (principal); J18.9 Pneumonia, unspecified organism; I82.431 Acute embolism and thrombosis of right popliteal vein; I82.451 Acute embolism and thrombosis of right peroneal vein; E11.40 Type 2 diabetes mellitus with diabetic neuropathy, unspecified; I10 Essential (primary) hypertension; E78.5 Hyperlipidemia, unspecified; F32.A Depression, unspecified; M54.12 Radiculopathy, cervical region; Z79.85 Long-term (current) use of injectable non-insulin antidiabetic drugs; Z79.891 Long term (current) use of opiate analgesic
CPT/HCPCS: 36415; 36416; 71045; 71275; 74174; 80053; 81001; 82962; 83690; 83735; 83880; 84100; 84443; 84484; 85025; 85378; 93005; 93306; 93970; 96372; 96374; 96375; 99284; 99285; G0378; J0456; J0696; J1650; J1815; J1885; J2060; J3490; J7050; J9999

== ENCOUNTER 2025-07-10 14:50 | Outpatient (CLI) | payer MEDICARE, OTHER, SELFPAY ==
--- NOTE | 2025-07-10 15:00 | USR_ITS ---
PROCEDURE INFORMATION: Exam: US Soft Tissue Head and Neck, Thyroid Exam date and time: 07/10/2025 3:06 PM Age: 75 years old Clinical indication: Other: Thyroid mass; Additional info: Thyroid mass, send result to pcp TECHNIQUE: Imaging protocol: Real-time ultrasound scan of the neck with image documentation. Exam focused on the thyroid. COMPARISON: CT cervical spin wo con* [id number] 10/24/2023 5:01 PM FINDINGS: Right thyroid lobe: No nodules. Left thyroid lobe: No nodules. Isthmus: No nodules. US/US thyroid [id number] IMPRESSION: Unremarkable thyroid.
== END 2025-07-10 14:51 | disposition home or self-care (01) ==
LOC: RAD 14:51
PROVIDERS: PCP Family Medicine; Visit Provider Family Medicine
DX: R22.1 Localized swelling, mass and lump, neck (principal)
CPT/HCPCS: 76536

== ENCOUNTER 2025-07-29 17:15 | Emergency (ER) | payer MEDICARE, OTHER, SELFPAY ==
[2025-07-29 17:21] VITALS: BP 149/67; PULSE 88; RESP 20; TEMP 36.4; O2SAT 97; BMI 31.8
--- NOTE | 2025-07-29 17:27 | ECG_ITS ---
[facility] Date: 2025-07-29 Pat Name: Naresh Carmona Department: Room: Gender: Male Paper Rewinder: : 1950 Requested By: Lowell Arriaza Order Number: [id number] Aaliyah MD: Olivia Hoffmann M.D. Measurements Intervals [place] Rate: 87 P: 49 WV: 177 QRS: -57 QRSD: 108 T: 72 QT: 368 QTc: 444 Interpretive Statements SINUS RHYTHM WITH SINUS ARRHYTHMIA PATTERN CONSISTENT WITH PULMONARY DISEASE LEFT ANTERIOR FASCICULAR BLOCK [QRS AXIS <= -45, QR IN I, RS IN II] Compared to ECG 06/28/2025 04:38:57 Left anterior fascicular block now present Left-axis deviation no longer present T-wave abnormality no longer present Electronically Signed On 07-30-2025 17:27:23 CLINICAL RESOURCE NURSE by Olivia Hoffmann M.D. [email or web address]
--- NOTE | 2025-07-29 17:40 | XRR_ITS ---
PROCEDURE INFORMATION: Exam: XR Chest Exam date and time: 07/29/2025 6:22 PM Age: 75 years old Clinical indication: Pain; Angina pectoris; Additional info: Cp TECHNIQUE: Imaging protocol: Radiologic exam of the chest. Views: 1 view. COMPARISON: CR (CHEST, ) 06/27/2025 5:31 PM FINDINGS: Lungs: Unremarkable. No consolidation. Pleural spaces: Unremarkable. No pleural effusion. No pneumothorax. Heart/Mediastinum: Unremarkable. No cardiomegaly. Vasculature: Aortic atherosclerosis. Bones/joints: Mild degenerative changes of the AC joints. XR/XR chest 1V portable [id number] IMPRESSION: No definite acute infiltrate or effusion.
[2025-07-29 18:03] LABS: Hematocrit 34.1 % (37-53); Hemoglobin 10.80 g/dL (11.27-16.99); Mean Corpuscular HGB Conc 31.7 g/dL (30-55); Mean Corpuscular Hemoglobin 30.3 pg (27-33); Mean Corpuscular Volume 95.5 fl (82-101); Nucleated Red Blood Cells % 0 %; Platelet Count 188 10^3/cmm (157-399); Red Blood Count 3.57 10^6/uL (3.85-5.65); White Blood Count 5.09 10^3/uL (3.29-11.43)
[2025-07-29 18:18] LABS: INR 1.11 (0.8-1.2); Prothrombin Time 15.10 SECONDS (12.1-14.9)
--- NOTE | 2025-07-29 18:39 | ECG_ITS ---
[facility]: 2025-07-29 Pat Name: Naresh Carmona Department: Room: Gender: Male Felt Cementer: : 1950 Requested By: Lowell Arriaza Order Number: [id number] Aaliyah MD: Olivia Hoffmann M.D. Measurements Intervals [place] Rate: 87 P: 39 IA: 174 QRS: -46 QRSD: 100 T: 61 QT: 369 QTc: 445 Interpretive Statements SINUS RHYTHM LEFT ANTERIOR FASCICULAR BLOCK [QRS AXIS <= -45, QR IN I, RS IN II] Compared to ECG 07/29/2025 17:27:23 Sinus arrhythmia no longer present Electronically Signed On 07-30-2025 17:43:38 DECONTAMINATION WORKER by Olivia Hoffmann M.D. [email or web address]
[2025-07-29 18:41] LABS: Alanine Aminotransferase 16 U/L (0-41); Albumin Level 3.8 g/dL (3.5-5.2); Alkaline Phosphatase 61 U/L (40-130); Anion Gap 15.1 (5-19); Aspartate Amino Transferase 30 U/L (0-40); Blood Urea Nitrogen 22 mg/dL (8-23); Calcium 8.5 mg/dL (8.5-10.5); Carbon Dioxide 25 mmol/L (22-29); Chloride 104 mmol/L (98-107); Globulin 2.2 g/dL (1.3-4.6); Glucose 251 mg/dL (65-115); NT Pro B Type Natriuretic Pept 150 pg/mL (0-450); Osmolality Calculated 302 mOsm/kg (285-295); Potassium 4.1 mmol/L (3.5-5.1); Sodium 140 mmol/L (136-145); Total Protein 6.0 g/dL (6.6-8.7)
--- NOTE | 2025-07-29 18:55 | W.ED.EXTPRO ---
HPI - Extremity Problem General: Chief complaint: Extremity Problem,Nontraumatic Stated complaint: Bilateral shoulder pain radiating down arms Time Seen by Provider: 07/29/25 17:45 Source: patient Mode of arrival: ambulatory Limitations: no limitations History of Present Illness: 75-year-old male who recently diagnosed with pulmonary emboli month ago states he has been on blood thinners states today has been having pain in bilateral shoulders down both arms states that he has had this pain when he initially had the pulm emboli. He denies any shortness of breath denies any chest pain denies any vomiting diarrhea. Related Data Home Medications ?Medication ?Instructions ?Recorded ?Confirmed insulin degludec 100 unit/mL 40 unit SUBCUT QAM 12/13/20 06/27/25 subcutaneous solution (Tresiba U-100 Insulin) insulin aspart U-100 100 unit/mL 22 - 28 unit SUBCUT .TID PER 03/28/22 06/27/25 (3 mL) subcutaneous pen (Novolog SLIDING SCA FlexPen U-100 Insulin aspart) dorzolamide 22.3 mg-timolol 6.8 1 drp ophthalmic (eye) BID 06/25/24 06/27/25 mg/mL eye drops fenofibrate micronized 134 mg 134 mg PO DAILY 06/25/24 06/27/25 capsule lidocaine 5 % topical gel See Rx Instructions .Route 06/25/24 06/27/25 .COMPLEX PRN Pain lisinopril 10 mg tablet 10 mg PO DAILY blood pressure 06/25/24 06/27/25 trazodone 100 mg tablet 100 mg PO BEDTIME 06/25/24 06/27/25 Previous Rx's ?Medication ?Instructions ?Recorded sildenafil 100 mg tablet 50 - 100 mg (0.5 - 1 x 100 mg) PO 10/26/22 DAILY PRN sexual activity #30 tabs pregabalin 75 mg capsule (Lyrica) 75 mg PO BID neuropathy pain #60 12/25/23 caps ondansetron 4 mg disintegrating 4 mg PO Q6H PRN nausea and 06/25/24 tablet vomiting #14 tabs metoprolol tartrate 25 mg tablet 25 mg PO BID #60 tabs 09/01/24 hydrocodone 10 mg-acetaminophen 1 tab PO Q4H PRN pain 15 days #90 02/13/25 325 mg tablet tabs naloxegol 25 mg tablet 25 mg PO QAM constipation #30 tabs 03/13/25 atorvastatin 80 mg tablet See Rx Instructions .Route 06/01/25 .COMPLEX #90 tabs bupropion HCl 300 mg 24 hr tablet, 300 mg PO QAM moods #30 tabs 06/18/25 extended release fentanyl 100 mcg/hr transdermal 1 patch transdermal Q72H DJD of 06/18/25 patch cervical spine 30 days #10 ea apixaban 5 mg (74 tabs) tablets in See Rx Instructions PO .COMPLEX 06/29/25 a dose pack (Eliquis DVT-PE Treat #74 ea 30D Start) diazepam 5 mg tablet (Valium) 5 mg PO Q8H PRN 07/14/25 anxeity/nervousness #30 tabs apixaban 5 mg tablet (Eliquis) 5 mg PO BID unprovoked DVT/PE #60 07/23/25 tabs fentanyl 50 mcg/hr transdermal 1 patch transdermal Q72H 15 days 07/23/25 patch #5 ea Allergies Allergy/AdvReac Type Severity Reaction Status Date / Time diazepam (From Valium) AdvReac ADR-Agitate Verified 07/23/25 13:58 d PFSH ED PFSH: Medical History HTN (hypertension) Hyperlipidemia, unspecified hyperlipidemia type Type 2 diabetes mellitus without complication, with long-term current use of insulin Hx of diverticulitis of colon Surgical History (Updated 06/30/25 @ 00:00 by LUKASZ Horn) History of back surgery S/P wrist surgery S/P shoulder surgery S/P hernia surgery History of elbow surgery S/P eye surgery Hx of transurethral resection of prostate Family History Mother , IN HER EARLY 70'S CAD (coronary artery disease) Father , AT AGE 74 LUNG Cancer Social History Smoking and tobacco/nicotine status: never used tobacco/nicotine Alcohol intake: never Marital status: Current occupational status: retired Physical Exam Const: COMMON NORMALS: no acute distress, patient oriented x3 and healthy appearing HENMT: COMMON NORMALS: normocephalic and atraumatic HEAD & SCALP: normocephalic and atraumatic Eye: COMMON NORMALS: Equal, round and reactive pupils present and EOMs intact bilaterally PUPIL: Yes Equal, round and reactive pupils present Neck/C-Spine: COMMON NORMALS: full ROM and supple Chest: COMMONS NORMALS: normal inspection of the chest and normal palpation of entire chest wall Resp: COMMON NORMALS: normal respiratory effort, No retractions, No use of accessory muscles and clear to auscultation bilaterally AUSCULTATION: clear to auscultation bilaterally Cardio: COMMON NORMALS: regular rate, regular rhythm and No murmurs present (Cardio) RATE: regular rate RHYTHM: regular rhythm GI: COMMON NORMALS: Normal to inspection, nondistended, normoactive bowel sounds present, Soft to palpation, non-tender and no masses PALPATION: Yes Soft to palpation Extremity: COMMON NORMALS: normal to inspection and full ROM Neuro: COMMON NORMALS: patient oriented x3, moves all extremities and no focal motor deficits Psych: COMMON NORMALS: mental status grossly normal, Normal thought process present and cooperative THOUGHT PROCESS: Normal thought process present Skin: COMMON NORMALS: no rashes or lesions noted and no wounds GENERAL SKIN EXAM: no rashes or lesions noted Course Vital Signs: Vital signs: Vital Signs Temperature 97.5 F L 07/29/25 17:21 Pulse Rate 88 07/29/25 17:21 Respiratory Rate 20 H 07/29/25 17:21 Blood Pressure 149/67 07/29/25 17:21 Pulse Oximetry 95 07/29/25 19:07 Oxygen Delivery Me thod Room Air 07/29/25 19:07 MDM - Extremity (Nontraumatic) Medical Decision Making Patient presents for bilateral shoulder pain had a recent pulm emboli blood work here shows no significant abnormalities troponins BNP are normal no signs of heart strain his vitals here been normal chest x-ray shows no abnormality. He is stable for discharge his follow-up with PCP return for worsening he understands agrees to plan. EKG interpretation time 1839 normal sinus rhythm heart rate [address] elevation QRS 100 QTc 413 Medical Records I reviewed the patient's medical records. Lab Data I reviewed the patient's lab results. 07/29/25 17:48 07/29/25 17:48 Radiology Impressions Chest X-Ray 07/29/25 17:40 IMPRESSION: No definite acute infiltrate or effusion. Laboratory Results WBC 5.09 10^3/uL (3.29-11.43) 07/29/25 17:48 RBC 3.57 10^6/uL (3.85-5.65) L 07/29/25 17:48 Hgb 10.80 g/dL (11.27-16.99) L 07/29/25 17:48 Hct 34.1 % (37-53) L 07/29/25 17:48 MCV 95.5 fl (82-101) 07/29/25 17:48 MCH 30.3 pg (27-33) 07/29/25 17:48 MCHC 31.7 g/dL (30-55) 07/29/25 17:48 RDW 13.7 % (12.1-15.1) 07/29/25 17:48 Plt Count 188 10^3/cmm (157-399) 07/29/25 17:48 MPV 9.6 fL (7.4-10.4) 07/29/25 17:48 Neut % (Auto) 51.7 % 07/29/25 17:48 Lymph % (Auto) 32.2 % 07/29/25 17:48 [place] % (Auto) 10.8 % 07/29/25 17:48 Eos % (Auto) 4.1 % 07/29/25 17:48 Baso % (Auto) 0.8 % 07/29/25 17:48 Neut # (Auto) 2.63 10^3/uL (1.8-7.7) 07/29/25 17:48 Lymph # (Auto) 1.6 10^3/uL (0.8-4.8) 07/29/25 17:48 [place] # (Auto) 0.6 10^3/uL (0.2-0.9) 07/29/25 17:48 Eos # (Auto) 0.2 10^3/uL (0.0-0.8) 07/29/25 17:48 Baso # (Auto) 0.0 10^3/uL (0.0-0.1) 07/29/25 17:48 Nucleated RBC % (auto) 0 % 07/29/25 17:48 Nucleated RBCs # 0.0 /100WBC 07/29/25 17:48 PT 15.10 SECONDS (12.1-14.9) H 07/29/25 17:48 INR 1.11 (0.8-1.2) 07/29/25 17:48 D-Dimer 0.42 ug/mLFEU (0-0.59) 07/29/25 17:48 Sodium 140 mmol/L (136-145) 07/29/25 17:48 Potassium 4.1 mmol/L (3.5-5.1) 07/29/25 17:48 Chloride 104 mmol/L (98-107) 07/29/25 17:48 Carbon Dioxide 25 mmol/L (22-29) 07/29/25 17:48 Anion Gap 15.1 (5-19) 07/29/25 17:48 BUN 22 mg/dL (8-23) 07/29/25 17:48 Creatinine 1.4 mg/dL (0.7-1.2) H 07/29/25 17:48 GFR Calculation Not Reportable 07/29/25 17:48 Glucose 251 mg/dL (65-115) H 07/29/25 17:48 Calculated Osmolality 302 mOsm/kg (285-295) H 07/29/25 17:48 Calcium 8.5 mg/dL (8.5-10.5) 07/29/25 17:48 Total Bilirubin 0.4 mg/dL (0.15-1.2) 07/29/25 17:48 AST 30 U/L (0-40) 07/29/25 17:48 ALT 16 U/L (0-41) 07/29/25 17:48 Alkaline Phosphatase 61 U/L (40-130) 07/29/25 17:48 Troponin T Baseline 24 ng/L (0-15) H 07/29/25 17:48 Troponin T 60 Minute 23.80 ng/L (0-15) H 07/29/25 18:39 Delta Troponin T -0.20 ABS# (0-10) L 07/29/25 18:39 NT-Pro-B Natriuret Pep 150 pg/mL (0-450) 07/29/25 17:48 Total Protein 6.0 g/dL (6.6-8.7) L 07/29/25 17:48 Albumin 3.8 g/dL (3.5-5.2) 07/29/25 17:48 Globulin 2.2 g/dL (1.3-4.6) 07/29/25 17:48 All radiology interpretation(s) finalized by discharge Discharge Plan Discharge Patient Disposition: Home Clinical Impression: Shoulder pain Pulmonary embolism Qualifiers: Pulmonary embolism type: unspecified Chronicity: acute Acute cor pulmonale presence: without acute cor pulmonale Qualified Code(s): I26.99 - Other pulmonary embolism without acute cor pulmonale Condition: Stable Prescriptions: No Action Tresiba U-100 Insulin 100 unit/mL solution 40 unit SUBCUT QAM insulin aspart U-100 [Novolog FlexPen U-100 Insulin] 100 unit/mL (3 mL) insulin pen 22 - 28 unit SUBCUT .TID PER SLIDING SCA hydrocodone-acetaminophen 10-325 mg tablet 1 tab PO Q4H PRN (Reason: pain) 15 Days Qty: 90 0RF bupropion HCl 300 mg tablet extended release 24 hr 300 mg PO QAM Qty: 30 1RF fentanyl 100 mcg/hr patch 72 hour 1 patch transdermal Q72H 30 Days Qty: 10 0RF naloxegol 25 mg tablet 25 mg PO QAM Qty: 30 2RF Rx Instructions: must be taken on empty stomach; no food 1 hr after or 2-3 hrs before dose fentanyl 50 mcg/hr patch 72 hour 1 patch transdermal Q72H 15 Days Qty: 5 0RF Eliquis 5 mg tablet 5 mg PO BID Qty: 60 1RF sildenafil 100 mg tablet 50 - 100 mg PO DAILY PRN (Reason: sexual activity) Qty: 30 5RF Rx Instructions: administer 30 minutes to 4 hours before activity pregabalin [Lyrica] 75 mg capsule 75 mg PO BID Qty: 60 3RF metoprolol tartrate 25 mg tablet 25 mg PO BID Qty: 60 0RF Rx Instructions: PATIENT MUST MAKE APPOINTMENT AND BE SEEN FOR FURTHER REFILLS atorvastatin 80 mg tablet See Rx Instructions .ROUTE .COMPLEX Qty: 90 3RF Dose Instruction: TAKE 1 TABLET BY MOUTH EVERY DAY at night Rx Instructions: TAKE 1 TABLET BY MOUTH EVERY DAY at night diazepam [Valium] 5 mg tablet 5 mg PO Q8H PRN (Reason: anxeity/nervousness) Qty: 30 0RF Eliquis DVT-PE Treat 30D Start 5 mg (74 tabs) tablets,dose pack See Rx Instructions .ROUTE .COMPLEX Qty: 74 1RF Rx Instructions: orally per package directions fenofibrate micronized 134 mg capsule 134 mg PO DAILY dorzolamide-timolol 22.3-6.8 mg/mL drops 1 drp ophthalmic (eye) BID trazodone 100 mg tablet 100 mg PO BEDTIME lisinopril 10 mg tablet 10 mg PO DAILY lidocaine 5 % gel See Rx Instructions .ROUTE .COMPLEX PRN (Reason: Pain) Rx Instructions: Apply to affected painful area up to 4 times daily ondansetron 4 mg tablet,disintegrating 4 mg PO Q6H PRN (Reason: nausea and vomiting) Qty: 14 0RF Discharge Orders: Discharge ED (Routine); Ordered 07/29/25 Ordered By: Lowell Arriaza Referrals: Jaylan Montero DO [Primary Care Provider, [facility]] - 4-7 days Discharge Diet: Advance as tolerated Discharge Activity: Resume usual activity Patient Instructions: Pulmonary Embolism (ED) Print Language: Spanish Coding Level of Care Code ED Special Agent In Charge for Elo Harris
[2025-07-29 19:07] VITALS: O2SAT 95
[2025-07-29 19:10] LABS: Troponin(5th) Baseline 24 ng/L (0-15)
[2025-07-29 19:23] VITALS: RESP 17; O2SAT 94
[2025-07-29] MEDS: morphine 4 mg/mL SDV 1 mL 8 MG IM (19:23)
[2025-07-29 19:48] VITALS: BP 125/61; PULSE 88; RESP 16; O2SAT 95
== END 2025-07-29 19:49 | disposition home or self-care (01) ==
PROVIDERS: Emergency Provider Emergency Medicine; PCP Family Medicine
DX: M25.512 Pain in left shoulder (principal); M25.511 Pain in right shoulder; I26.99 Other pulmonary embolism without acute cor pulmonale; Z79.4 Long term (current) use of insulin; Z79.01 Long term (current) use of anticoagulants; E78.5 Hyperlipidemia, unspecified; E11.9 Type 2 diabetes mellitus without complications; I10 Essential (primary) hypertension
CPT/HCPCS: 36415; 71045; 80053; 83880; 84484; 85025; 85378; 85610; 93005; 96372; 99285; J2270